=== PATIENT | male | born 1960 | race Caucasian/White ===

== ENCOUNTER 2016-07-17 08:32 | Outpatient (CLI) | payer OTHER | END 2016-07-17 08:33 | disposition home or self-care (01) | DX: M85.89 Other specified disorders of bone density and structure, multiple sites (principal) ==

== ENCOUNTER 2016-09-25 21:20 | Outpatient (CLI) | payer OTHER | END 2016-09-25 21:21 | disposition critical access hospital (66) | DX: R53.1 Weakness (principal); R41.3 Other amnesia; W19.XXXA Unspecified fall, initial encounter; Y92.009 Unspecified place in unspecified non-institutional (private) residence as the place of occurrence of the external cause | CPT/HCPCS: A0425; A0427 ==

== ENCOUNTER 2016-09-25 21:37 | Emergency (ER) | payer OTHER ==
[2016-09-25] MEDS ORDERED: LORazepam 2 MG/ML SYRINGE IVP STA (21:46)
[2016-09-25] MEDS ORDERED: SODIUM CHLORIDE 0.9% 1,000 ML IV ONE (21:46)
[2016-09-25] MEDS ORDERED: LORazepam 2 MG/ML SYRINGE ONE (21:51)
== END 2016-09-26 00:16 | disposition home or self-care (01) ==
DX: G40.909 Epilepsy, unspecified, not intractable, without status epilepticus (principal); S20.212A Contusion of left front wall of thorax, initial encounter; W18.39XA Other fall on same level, initial encounter; F17.200 Nicotine dependence, unspecified, uncomplicated
CPT/HCPCS: 71101; 96374; 99284; 99285; J2060

== ENCOUNTER 2017-03-10 10:57 | Outpatient (CLI) | payer OTHER | END 2017-03-10 10:58 | disposition critical access hospital (66) | LOC: EMS 10:57 | PROVIDERS: ATTEND Surgery | DX: R56.9 Unspecified convulsions (principal) | CPT/HCPCS: A0425; A0429 ==

== ENCOUNTER 2017-03-10 11:19 | Emergency (ER) | payer OTHER ==
--- NOTE | 2017-03-10 12:32 | ED Physician Documentation ---
PD HPI SEIZURE - Stated complaint Stated Complaint: SEIZURE - Chief complaint Chief Complaint: Neuro - History obtained from History obtained from: Patient, Family - History of Present Illness Timing - onset: How many hours ago (1) Witnessed: Witnessed Number of seizures: Lasted minutes (1-2) Description of seizure activity: Generalized Injury during seizure: None Pain level max: 0 Pain level now: 0 Associated symptoms: None History of seizures: Known seizure disorder Contributing factors: Other (states has been taking his medications, pt is also a self admitted alcoholic, doesn't want treatment for this.) Treatment SPECIALTY DEVELOPMENT CONSULTANT: Other (none) Similar symptoms before: Diagnosis (recurrent seizures) Recently seen: Not recently seen Review of Systems Ten Systems: 10 systems reviewed and negative Constitutional: denies: Fever, Chills Ears: denies: Ear pain Nose: denies: Rhinorrhea / runny nose, Congestion Throat: denies: Sore throat Cardiac: denies: Chest pain / pressure Respiratory: denies: Cough GI: denies: Abdominal Pain, Vomiting, Diarrhea : denies: Dysuria Skin: denies: Rash Musculoskeletal: denies: Neck pain, Back pain Neurologic: denies: Headache PD PAST MEDICAL HISTORY - Past Medical History Past Medical History: Yes Neuro: Seizure disorder - Past Surgical History Past Surgical History: Yes - Present Medications Home Medications: Ambulatory Orders Medication Instructions Recorded Confirmed Hydrocodone/Acetaminophen 1 - 2 each PO Q6H PRN #20 tablet 06/19/16 03/10/17 [Hydrocodon-Acetaminophen 5-325] OXcarbazepine [Trileptal] 300 mg PO BID #60 tablet 09/25/16 03/10/17 - Allergies Allergies/Adverse Reactions: Allergies Allergy/AdvReac Type Severity Reaction Status Date / Time Penicillins Allergy Unknown Verified 09/25/16 21:44 - Social History Does the pt smoke?: Yes Smoking Status: Current every day smoker Does the pt drink ETOH?: Yes Does the pt have substance abuse?: No - Immunizations Immunizations are current?: Yes Immunizations: TDAP >10years/unknown - POLST Patient has POLST: No PD ED PE NORMAL - Vitals Vital signs reviewed: Yes - General General: Alert and oriented X 3, No acute distress, Well developed/nourished - HEENT HEENT: Atraumatic, PERRL, EOMI, Moist mucous membranes, Pharynx benign (normal intraoral exam) - Neck Neck: Supple, no meningeal sign, No bony TTP - Cardiac Cardiac: RRR - Respiratory Respiratory: Clear bilaterally - Abdomen Abdomen: Soft, Non tender, Non distended - Back Back: No spinal TTP - Derm Derm: Warm and dry - Extremities Extremities: No deformity, No tenderness to palpate, Normal ROM s pain - Neuro Neuro: Alert and oriented X 3, tire retreader 2-12 intact, No motor deficit, No sensory deficit, Normal speech - Psych Psych: Normal mood, Normal affect Results - Vitals Vitals: Vital Signs - 24 hr 03/10/17 03/10/17 11:26 12:32 Temperature 36.7 C Heart Rate 99 91 Respiratory 18 18 Rate Blood Pressure 164/99 H 165/101 H O2 Saturation 90 L 92 Oxygen O2 Source Nasal cannula PD MEDICAL DECISION MAKING - ED course Complexity details: re-evaluated patient, considered differential, d/w patient, d/w family ED course: Patient is a 56-year-old male who has a known seizure disorder. Presents with a recurrent seizure today. States he is still taking all of his current seizure medications at home. States has 1-2 seizures per year. No injury today. Offered resources to help with his alcoholism, patient declines. Will continue his seizure medications at home. Patient and family counseled regarding signs and symptoms for which I believe and urgent re-evaluation would be necessary. Patient with good understanding of and agreement to plan and is comfortable going home at this time This document was made in part using voice recognition software. While efforts are made to proofread this document, sound alike and grammatical errors may occur. Departure - Departure Disposition: 01 Home, Self Care Clinical Impression: Recurrent seizures Condition: Good Instructions: ED Seizure Recurrent Follow-Up: Luther Trivedi MD [Primary Care Provider] - Within 1 week Comments: Continue your medications at home. Return if you worsen. Your blood pressure was elevated today on check in to the emergency department. This does not mean that you have hypertension, it is a common phenomenon to check into the emergency department and have elevated blood pressure. I recommend that you see your primary care physician within the week to have it rechecked when you're feeling better. Discharge Date/Time: 03/10/17 12:39
[2017-03-10 12:33] VITALS: BP 165/101
== END 2017-03-10 12:39 | disposition home or self-care (01) ==
LOC: EDUNIT# → ED 11:19
DX: G40.909 Epilepsy, unspecified, not intractable, without status epilepticus (principal); R03.0 Elevated blood-pressure reading, without diagnosis of hypertension; F17.200 Nicotine dependence, unspecified, uncomplicated
CPT/HCPCS: 99283

== ENCOUNTER 2017-10-13 13:17 | Outpatient (CLI) | payer OTHER | END 2017-10-13 13:18 | disposition EMS.NT | LOC: EMS 13:17 | PROVIDERS: ATTEND Surgery | DX: R56.9 Unspecified convulsions (principal) ==

== ENCOUNTER 2019-02-18 11:50 | Outpatient (CLI) | payer OTHER | END 2019-02-18 11:51 | disposition EMS.NT | LOC: EMS 11:50 | PROVIDERS: ATTEND Surgery | DX: R56.9 Unspecified convulsions (principal) ==

== ENCOUNTER 2019-08-05 09:49 | Outpatient (CLI) | payer OTHER | END 2019-08-05 09:50 | disposition home or self-care (01) | LOC: LAB 09:49 | PROVIDERS: ATTEND Family Medicine | DX: E87.5 Hyperkalemia (principal) | CPT/HCPCS: 36415; 84132 ==

== ENCOUNTER 2020-09-17 12:27 | Outpatient (CLI) | payer OTHER ==
--- NOTE | 2020-09-17 16:39 | DEXA Report ---
PROCEDURE: Dexa Spine and/or Hip INDICATIONS: LOW BACK PAIN, L5-L5 COMPRESSION FRACUTRE TECHNIQUE: Dual energy x-ray absorptiometry (DXA) was performed on a [employer] System. Regions measur ed are the AP Spine, femoral neck, and if needed forearm. COMPARISON: 07/17/2016. FINDINGS: Lumbar Spine: Bone Mineral Density 1.008 g/cm/cm,T score -1.8, decreased Left Hip: Bone Mineral Density 0.664 g/cm/cm,T score -2.5, decreased Left Femoral Neck: Bone Mineral Density 0.671 g/cm/cm, T score -2.1, (T score greater or equal to -1.0: NORMAL) (T score from -1.1 to -2.4: OSTEOPENIA) (T score less than or equal to -2.5 to: OSTEO POROSIS) Impression: Based on the WHO criteria, the patient is osteoporotic. Compared with the last exam on , bone mineral density in lumbar spine and left hip is significantly decreased. Patients with diagnosis of osteoporosis or osteopenia should have regular bone mineral density assess ment. For those eligible for Medicare, routine testing is allowed once every 2 years. Testing frequ ency can be increased for patients who have rapidly progressing disease or for those who are receivin g medical therapy to restore bone mass. Reviewed by: Altagracia Muhammad MD on 09/17/2020 4:37 PM PST Approved by: Altagracia Muhammad MD on 09/17/2020 4:37 PM PST Station ID: [id number]
== END 2020-09-17 12:28 | disposition home or self-care (01) ==
LOC: DI 12:27
PROVIDERS: ATTEND Family Medicine
DX: M81.0 Age-related osteoporosis without current pathological fracture (principal)

== ENCOUNTER 2021-04-27 10:27 | Outpatient (CLI) | payer OTHER ==
--- NOTE | 2021-04-27 12:17 | MRI Report ---
PROCEDURE: Lumbar Spine W/O INDICATIONS: LOW BACK SPINE TECHNIQUE: Noncontrast sagittal T1 spin echo and T2 fast echo, sagittal STIR, axial T1 and T2 fast spin echo thr ough the lumbar spine. In cases with scoliosis, additional coronal T2 fast spin echo may be performe d. COMPARISON: None. FINDINGS: Image quality: Excellent. Alignment and Curvature: Trace degenerative anterolisthesis of L4 on L5. There is otherwise normal b ton alignment. Bone Marrow: Marrow is of normal overall signal. No acute vertebral body compression fractures. Mil d chronic compressions of L4 and L5. Minimal chronic compressions of T12 and L1. Spinal Cord: Conus medullaris terminates at the L1 level. Visualized cord demonstrates normal signa l and size. Paraspinous Soft Tissues: No paravertebral masses. T12-L1: No canal stenosis or foraminal stenosis. L1-L2: No canal stenosis or foraminal stenosis. L2-L3: No canal stenosis or foraminal stenosis. L3-L4: No canal stenosis or foraminal stenosis. L4-L5: Disc bulge. Facet and ligament hypertrophy. Epidural lipomatosis. Mild canal stenosis. Moder ate right foraminal narrowing with mild flattening deformity on the inferior aspect of the right L4 n erve root. Mild to moderate left foraminal narrowing. L5-S1: No canal stenosis. Mild disc bulge. Bilateral facet hypertrophy. Moderate left foraminal eduardo rowing with mild flattening deformity on the exiting left L5 nerve root. IMPRESSION: 1. Multilevel mild chronic compressions. 2. There is mild canal stenosis at L4-L5. 3. Lower lumbar facet arthropathy. 4. There is moderate right foraminal narrowing at L4-L5 and moderate left foraminal narrowing at L5-S 1. Reviewed by: Juan Cullen MD on 04/27/2021 12:16 PM PDT Approved by: Juan Cullen MD on 04/27/2021 12:16 PM PDT Station ID: [id number]
== END 2021-04-27 10:28 | disposition home or self-care (01) ==
LOC: DI 10:27
PROVIDERS: ATTEND Family Medicine
DX: M47.816 Spondylosis without myelopathy or radiculopathy, lumbar region (principal); M47.817 Spondylosis without myelopathy or radiculopathy, lumbosacral region; M48.061 Spinal stenosis, lumbar region without neurogenic claudication; M48.07 Spinal stenosis, lumbosacral region

== ENCOUNTER 2021-12-12 17:19 | Inpatient (IN) | payer OTHER ==
[2021-12-12] MEDS ORDERED: cefTRIAXone 2 GM in SODIUM CHLORIDE 0.9% MINIBAG 100 ML IV STA (17:40)
[2021-12-12] MEDS ORDERED: metroNIDAZOLE 500 MG/100 ML 500 MG/100 ML BAG IV ONE (17:40)
--- NOTE | 2021-12-12 18:01 | CT Report ---
PROCEDURE: MAXILLOFACIAL WO INDICATIONS: facial infection TECHNIQUE: Noncontrast 1.5 mm thick axial images acquired from the mandible through the frontal sinuses, with co moises and sagittal reformatting. For radiation dose reduction, the following was used: automated ex posure control, adjustment of mA and/or kV according to patient size. COMPARISON: None. FINDINGS: Image quality: Excellent. Bones and teeth: The left mandible is highly abnormal, with apparent bony lysis seen on series 3 karma ges 33 through 73. Several missing teeth can be seen within this region. Orbital yuan are intact. Sinus yuan show no fracture or deformity. Nasal bones and septum are int act. Zygomatic arches are intact. Pterygoid plates are intact. Visualized portions of the skull ba se and auditory canals are intact. Sinuses: Mild to moderate mucosal thickening is seen within the left maxillary sinus and within the r ight maxillary sinus inferiorly. Milder mucosal thickening is seen elsewhere within the paranasal sin uses. The ostiomeatal complexes are narrowed, with bilateral Vero cells. Opacification can be seen of the right-sided Vero cells. There is mild rightward nasal septal deviation. Soft tissues: There is mild left perimandibular soft tissue swelling. Vascular: Visualized vascular structures appear normal in the absence of contrast. Bony vascular fo ramina and canals are intact. Atherosclerotic calcification is seen. IMPRESSION: Given the history, these imaging findings are highly concerning for osteomyelitis of the left mandibl e. However, differential diagnosis includes necrosis of the mandible. Urgent oral surgery/ENT consultation would be recommended. Mild left perimandibular soft tissue swelling is seen. Paranasal sinus disease is noted. Reviewed by: Kd Artis MD on 12/12/2021 4:59 PM AKDT Approved by: Kd Artis MD on 12/12/2021 4:59 PM AKDT Station ID: [id number]
[2021-12-12 18:26] LABS: BASOPHILS # (AUTO) 0.1 10^3/uL (0.0-0.1); BASOPHILS % (AUTO) 0.8 %; EOSINOPHILS # (AUTO) 0.2 10^3/uL (0.0-0.7); EOSINOPHILS % (AUTO) 2.9 %; HCT - HEMATOCRIT 45.1 % (42.0-52.0); HGB - HEMOGLOBIN 15.4 g/dL (14.0-18.0); LYMPHOCYTES # (AUTO) 1.5 10^3/uL (1.5-3.5); LYMPHOCYTES % (AUTO) 20.1 %; MEAN CORPUSCULAR HEMOGLOBIN 33.5 pg (27.0-31.0); MEAN CORPUSCULAR HGB CONC 34.1 g/dL (32.0-36.0); MONOCYTES # (AUTO) 0.5 10^3/uL (0.0-1.0); MONOCYTES % (AUTO) 6.7 %; NEUTROPHILS # (AUTO) 5.2 10^3/uL (1.5-6.6); NEUTROPHILS % (AUTO) 69.1 %; PLT - PLATELET COUNT 263 10^3/uL (130-450); RED CELL DISTRIBUTION WIDTH 14.6 % (12.0-15.0); WHITE BLOOD COUNT 7.5 x10^3/uL (4.8-10.8)
[2021-12-12] MEDS ORDERED: KETOROLAC 15 MG/ML VIAL IVP STA (18:44)
[2021-12-12] MEDS ORDERED: HYDROmorphone 1 MG/ML CARPUJECT IVP STA (18:44)
[2021-12-12 18:46] LABS: BUN - BLOOD UREA NITROGEN 17 mg/dL (6-20); CALCIUM 9.5 mg/dL (8.5-10.3); CARBON DIOXIDE - CO2 26 mmol/L (21-32); CHLORIDE 94 mmol/L (101-111); CREATININE 0.8 mg/dL (0.6-1.2); GFR - MDRD 98 (>89); GLUCOSE 136 mg/dL (70-100); SODIUM 131 mmol/L (135-145)
[2021-12-12 18:47] LABS: CRP - C-REACTIVE PROTEIN < 1.0 mg/dL (0-1.0)
--- NOTE | 2021-12-12 18:48 | ED Physician Documentation ---
History of Present Illness - Stated complaint Stated Complaint: L LOWER JAW PX/INFECTION - Chief complaint Chief Complaint: General - History obtained from History obtained from: Patient - Additonal information Additional information: 61-year-old gentleman had some dental issues starting a couple weeks ago went to his dentist and was put on antibiotics. He had a tooth fall out from the left mandible and the dentist subsequently referred him to Dr. Andrzej Fan, [facility] [place] who saw him today and referred him here because Panorex was suggestive of osteomyelitis of the jaw. He is in quite a bit of pain. Denies fevers or other systemic symptoms. Review of Systems Ten Systems: 10 systems reviewed and negative Eyes: reports: Reviewed and negative Ears: reports: Reviewed and negative Throat: reports: Dental pain / toothache Cardiac: reports: Reviewed and negative PD PAST MEDICAL HISTORY - Past Medical History Past Medical History: No - Past Surgical History Past Surgical History: Yes - Present Medications Home Medications: Ambulatory Orders Medication Instructions Recorded Confirmed OXcarbazepine [Trileptal] 300 mg PO BID #60 tablet 09/25/16 12/12/21 Lisinopril [Zestril] 40 mg PO DAILY 12/12/21 12/12/21 hydroCHLOROthiazide [Hydrodiuril] 25 mg PO DAILY 12/12/21 12/12/21 - Allergies Allergies/Adverse Reactions: Allergies Allergy/AdvReac Type Severity Reaction Status Date / Time Penicillins Allergy Unknown Verified 12/12/21 17:34 - Social History Does the pt smoke?: Yes Smoking Status: Current every day smoker Does the pt drink ETOH?: Yes Does the pt have substance abuse?: No - Immunizations Immunizations are current?: Yes Immunizations: TDAP >10years/unknown - POLST Patient has POLST: No PD ED PE NORMAL - Vitals Vital signs reviewed: Yes - General General: Alert and oriented X 3, No acute distress - HEENT HEENT: PERRL, EOMI, Other (He does have some trismus and significant tenderness on the left side of the jaw. Difficult to examine because of the trismus.) - Neck Neck: No bony TTP, No JVD - Cardiac Cardiac: RRR, No murmur - Respiratory Respiratory: No respiratory distress, Clear bilaterally - Abdomen Abdomen: Normal bowel sounds, Soft, Non tender - Back Back: No CVA TTP, No spinal TTP - Derm Derm: Normal color, Warm and dry - Extremities Extremities: No edema, No calf tenderness / cord - Neuro Neuro: Alert and oriented X 3, No motor deficit, No sensory deficit, Normal speech Results - Vitals Vitals: Vital Signs - 24 hr 12/12/21 17:31 Temperature 36.3 C L Heart Rate 97 Respiratory 16 Rate Blood Pressure 127/85 H O2 Saturation 98 Oxygen O2 Source Room air - Labs Labs: Laboratory Tests 12/12/21 12/12/21 12/12/21 18:17 18:17 18:17 WBC 7.5 RBC 4.60 L Hgb 15.4 Hct 45.1 MCV 98.0 H MCH 33.5 H MCHC 34.1 RDW 14.6 Plt Count 263 MPV 9.0 Neut # (Auto) 5.2 Lymph # (Auto) 1.5 Valencia # (Auto) 0.5 Eos # (Auto) 0.2 Baso # (Auto) 0.1 Absolute Nucleated RBC 0.00 Nucleated RBC % 0.0 ESR 5 Sodium 131 L Potassium 4.0 Chloride 94 L Carbon Dioxide 26 Anion Gap 11.0 BUN 17 Creatinine 0.8 Estimated GFR (MDRD) 98 Glucose 136 H Lactic Acid Calcium 9.5 C-Reactive Protein < 1.0 12/12/21 18:17 WBC RBC Hgb Hct MCV MCH MCHC RDW Plt Count MPV Neut # (Auto) Lymph # (Auto) Valencia # (Auto) Eos # (Auto) Baso # (Auto) Absolute Nucleated RBC Nucleated RBC % ESR Sodium Potassium Chloride Carbon Dioxide Anion Gap BUN Creatinine Estimated GFR (MDRD) Glucose Lactic Acid 1.5 Calcium C-Reactive Protein PD MEDICAL DECISION MAKING - ED course ED course: 61-year-old gentleman presents at the behest of Dr. Fan, [facility] [place] for CT of the mandible and IV antibiotics. CT of the mandible did confirm osteomyelitis of the jaw and I confirmed with Dr. Fan the antibiotic selection of ceftriaxone and Flagyl noting his penicillin allergy which was an unknown reaction from childhood. Dr. Fan recommends admission to medicine for continued IV antibiotics, likely mandibulectomy tomorrow and will need a PICC line for prolonged IV antibiotic therapy and liquid diet for now until n.p.o. for the OR. Spoke with Dr. Meyer after shift change at about 7:45 PM for admission. Departure - Departure Disposition: 66 [facility] DC/Xfer Clinical Impression: Acute osteomyelitis of mandible Condition: Serious
[2021-12-12] MEDS ORDERED: ONDANSETRON 4 MG/2 ML VIAL IVP PRN (20:09)
--- NOTE | 2021-12-12 20:19 | HISTORY & PHYSICAL EXAMINATION ---
Chief Complaint - Chief Complaint Chief Complaint: Left jaw pain, and sent in by Dr Andrzej Fan History of Present Illness - Admitted From Admitted From:: ED - History Obtained From History obtained from: ED provider and the patient - History of Present Illness HPI Comment/Other: This is a 61-year-old white male with a history of hypertension (on lisinopril and HCTZ) and history of seizures (on Trileptal). 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 He has had no seizures since 2019. The patient's significant other, Grace, started to complain of the pt having bad breath in Aug 2021. He became more diligent with his oral care but the smell only got worse. In early November, he went to his dentist who reported that his left lower jaw had a molar that was 1/2 missing (down to its root) and next to it was a loose tooth. He was put on a course of Amoxicillin which he took as prescribed. The foul smell got better but the lose tooth fell out. He had a return visit in mid-November with the dentist who said the area was now exposed down to the jaw bone and an appointment was set up for him to see Dr Andrzej Fan, which was today. He developed a tooth ache approximately 2 weeks ago and 4 days ago he started to get lock jaw and it was painful to open his mouth. He was seen by Dr. Fan today where an x-ray suggested there was jaw osteomyelitis and the pt was sent to the ED to confirm this with a CT scan. It was confirmed and the patient is being admitted to treat L lower mandible osteomyelitis using IV antibiotics and the plan is for the pt to undergo surgical intervention tomorrow (mandibulectomy). The patient will also need a PICC line for a prolonged course of IV antibiotics. He had blood cultures done in ER and first antibiotics administered. Labs showed a normal WBC, L.A., CRP and ESR. His serum sodium is 131. History - Past Medical History Cardiovascular: reports: Hypertension Respiratory: reports: None Neuro: reports: Seizure disorder Endocrine/Autoimmune: reports: None GI: reports: None CHURCH MUSICIAN: reports: None : reports: None HEENT: reports: Other (current dental infectiuon) Psych: reports: None Musculoskeletal: reports: None Derm: reports: None - Past Surgical History HEENT: reports: Other (Has "poor teeth" with some missing) - Family & Social History Family History: Mother: (Father of lung [place]), Father: , Sister: Alive and Well (2 older brothers, 1 younger sister, health unknown. A 27-year-old daughter is healthy, a son in an auto accident.), Brother: Alive and Well Living arrangement: At home Living Situation: With spouse/s.o. 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 He smokes just under 1 pack/day of cigarettes. He drinks between 0 and a sixpack of beer a day, says he has never had alcohol withdrawal. His last beer intake was 2 days ago when he had more than a sixpack, to try to relieve the jaw pain. He tried smoking marijuana once recently, for the jaw pain, it had no effect, thus he uses no marijuana or other drugs. - Substance History Use: Uses substance without health or social issues: Tobacco, Alcohol - POLST Patient has POLST: No Meds/Allgy - Home Medications Home Medications: Ambulatory Orders Medication Instructions Recorded Confirmed Lisinopril [Zestril] 40 mg PO DAILY 12/12/21 12/12/21 OXcarbazepine [Trileptal] 900 mg PO BID 12/12/21 12/12/21 hydroCHLOROthiazide [Hydrodiuril] 25 mg PO DAILY 12/12/21 12/12/21 - Allergies Allergies/Adverse Reactions: Allergies Allergy/AdvReac Type Severity Reaction Status Date / Time Penicillins Allergy Unknown Verified 12/12/21 17:34 Review of Systems - Constitutional Constitutional: reports: Other (L mouth pain, of upper and lower jaw, rate 9/10, worse with opening mouth) - Gastrointestinal Gastrointestinal: reports: Other (He admits to having a poor diet, does not eat healthy food, eats only when he is hungry, not 3 meals every day, sometimes just one.) - Neurological Neurological: reports: Other (No seizures in 3 years, is compliant with his meds.) - All Other Systems All Other Systems: reports: Reviewed and negative Exam - Vital Signs Vital Signs: Vital Signs x48h Temp Pulse Resp BP Pulse Ox 12/12/21 17:31 36.3 C L 97 16 127/85 H 98 - Physical Exam General Appearance: positive: No acute distress, Alert Eyes Bilateral: positive: Normal inspection, EOMI ENT: positive: No signs of dehydration, Other (Most teeth intact anteriorly, L posterior jaw tender.) Neck: positive: Other (Has a long eason and neck not visualized.) Respiratory: positive: No respiratory distress, Breath sounds nml Cardiovascular: positive: Regular rate & rhythm, No murmur Abdomen: positive: Non-tender, Nml bowel sounds, No distention Skin: positive: Warm, Dry Extremities: positive: Non-tender, No pedal edema Neurologic/Psychiatric: positive: Oriented x3 (Non-focal) Conclusion/Plan - Problem List (1) Acute osteomyelitis of mandible Conclusion/Plan: As per presentation that was described in the H&P. Dr. Andrzej Fan will be ordered for consult and will manage the case mostly. We await blood culture results. As recommended by Dr Fan, the patient will be put on iv Flagyl and iv Rocephin, given the penicillin allergy. Will order clear liquid diet but n.p.o. after midnight for mandibulectomy tomorrow. We will also order a PICC line insertion (to be done in OR). Will give IV fluids since he will have restricted oral intake. Will give IV pain meds. (2) Hyponatremia Conclusion/Plan: This is probably hypovolemic hyponatremia given his use of diuretic, and possibly also has had decreased oral intake because of his "lock jaw". Will give iv fluids to include Normal Saline. Will follow BMP daily (3) Seizure disorder Conclusion/Plan: We will continue the patient's Trileptal while he is here (4) HTN (hypertension) Conclusion/Plan: Patient usually takes lisinopril and HCTZ. Currently his blood pressure is normal. Will continue with the lisinopril. Will stop the HCTZ since the patient will need IV hydration because his diet will be very altered (5) Hypomagnesemia Conclusion/Plan: This is likely from chronic HCTZ use Will give magnesium replacement. HCTZ will be on hold while he is here (6) Tobacco use Conclusion/Plan: Will order a Nicotine patch (7) Alcohol consumption binge drinking Conclusion/Plan: He says he does not drink every day, sometimes skips an entire week. He can drink up to a sixpack a day however and just 2 days ago had more than a sixpack of beer, in trying to relieve his jaw pain. Will order a WA protocol. - Lab Results Fish Bones: 12/12/21 18:17 12/12/21 18:17 - Diagnostic Imaging Results Diagnostic Imaging Results: positive: Final report reviewed - Other Other Results/Comments: Attestation: The patient is expected to be discharged or transferred to another facility within 96 hours: Yes.
[2021-12-12] MEDS ORDERED: OXcarbazepine 150 MG TABLET PO SCH (21:00)
[2021-12-12] MEDS: metroNIDAZOLE 500 MG/100 ML 500 MG/100 ML BAG IV SCH (21:11)
[2021-12-12 21:44] LABS: ALBUMIN 4.1 g/dL (3.2-5.5); ALKALINE PHOSPHATASE 99 IU/L (42-121); ALT ALANINE AMINOTRANSFERASE 19 IU/L (10-60); AST ASPARTATE AMINOTRANSFERASE 18 IU/L (10-42); BILIRUBIN,TOTAL 0.6 mg/dL (0.2-1.0); MAGNESIUM 1.5 mg/dL (1.7-2.8); TOTAL PROTEIN 7.5 g/dL (6.7-8.2)
[2021-12-12 21:45] LABS: PT - PROTHROMBIN TIME 10.7 secs (9.9-12.6)
[2021-12-12] MEDS: SODIUM CHLORIDE FLUSH 0.9% 10 ML SYRINGE IVP PRN (21:56)
[2021-12-12] MEDS ORDERED: OXcarbazepine 150 MG TABLET PO ONE (22:00)
[2021-12-12 22:03] LABS: BILIRUBIN,DIRECT < 0.1 mg/dL (0.1-0.5)
[2021-12-12] MEDS: HYDROmorphone 0.5 MG/0.5 ML SYRINGE IVP PRN (22:21)
[2021-12-12] MEDS ORDERED: D5NS W/20 MEQ KCL 1,000 ML IV SCH (23:00)
--- NOTE | 2021-12-12 23:01 | CONSULTATION NOTE ---
Referring Provider Name of Referring Provider:: Monie Blum Consult Date: 12/12/21 Chief Complaint - Chief Complaint Chief Complaint: Mouth pain History of Present Illness - Admitted From Admitted From:: ER - History of Present Illness HPI Comment/Other: 61 yo M w/ 2 month h/o worsening pain and swelling of the L mandible. He now reports complete loss of sensation in the L V3 distribution, with dysesthesia occasionally. Endorses worsening trismus, swelling, halitosis, malocclusion, and left ear pain. Denies globus, dysphagia, dyspnea. Today he presented to my office with a complaint of a lower left molar falling out spontaneously and of worsening pain. An orthopantomogram demonstrated significant lytic process of the L mandible most suggestive of osteomyelitis. His pain was uncontrolled and he reported inability to take adequate PO, and he had worsening swelling of the L submandibular region. He was referred to the ER for imaging and IV antibiotics. From there he was admitted to med/surg and OMFS was consulted for evaluation and management of his osteomyelitis. 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 A 27-year-old daughter is healthy, a son in an auto accident.), Brother: Alive and Well Living arrangement: At home Living Situation: With spouse/s.o. 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 He smokes just under 1 pack/day of cigarettes. He drinks between 0 and a sixpack of beer a day, says he has never had alcohol withdrawal. His last beer intake was 2 days ago when he had more than a sixpack, to try to relieve the jaw pain. He tried smoking marijuana once recently, for the jaw pain, it had no effect, thus he uses no marijuana or other drugs. - Substance History Use: Uses substance without health or social issues: Tobacco, Alcohol - POLST Patient has POLST: No Meds/Allgy - Home Medications Home Medications: Ambulatory Orders Medication Instructions Recorded Confirmed Lisinopril [Zestril] 40 mg PO DAILY 12/12/21 12/12/21 OXcarbazepine [Trileptal] 900 mg PO BID 12/12/21 12/12/21 hydroCHLOROthiazide [Hydrodiuril] 25 mg PO DAILY 12/12/21 12/12/21 - Allergies Allergies/Adverse Reactions: Allergies Allergy/AdvReac Type Severity Reaction Status Date / Time Penicillins Allergy Unknown Verified 12/12/21 17:34 Review of Systems - Other Findings Other Findings: A 14 point ROS was completed and negative except as noted above in HPI. Exam - Vital Signs Vital Signs: Vital Signs x48h Temp Pulse Pulse Resp BP BP Pulse Ox 12/12/21 21:00 36.7 C 83 18 136/94 H 94 12/12/21 20:23 36.7 C 79 18 131/90 H 94 12/12/21 17:31 36.3 C L 97 16 127/85 H 98 - Physical Exam General Appearance: positive: Alert Eyes Bilateral: positive: PERRL, EOMI ENT: positive: Other (SOM 20mm. L FOM s, nt, ne. Uvula midline. Exposed bone over the L mandibular ridge. Purulent drainage from the open wound into his mouth. Occlusion stable. Dentition terminal with severe generalized horizontal bone loss, especially on the mandible.) Neck: positive: Other (Thick eason. Skin over the L mandible is erythematous and tender, with moderate swelling and induration of the L submandibular region.) Respiratory: positive: No respiratory distress, Breath sounds nml Cardiovascular: positive: Regular rate & rhythm Peripheral Pulses: positive: 2+ Abdomen: positive: Non-tender, No distention Skin: positive: Other (Erythema of the L neck, otherwise normal) Extremities: positive: Full ROM, Nml appearance Neurologic/Psychiatric: positive: Oriented x3, CN's nml (2-12) (With the exception of left V3 anesthesia) Conclusion and Plan - Lab Results Laboratory Results 12/12/21 18:30: SARS-CoV-2 (PCR) NOT DETECTED 12/12/21 18:17: Magnesium 1.5 L, Total Bilirubin 0.6, Direct Bilirubin < 0.1 L, AST 18, ALT 19, Alkaline Phosphatase 99, Total Protein 7.5, Albumin 4.1, Globulin 3.4 12/12/21 18:17: PT 10.7, INR 1.0 12/12/21 18:17: Lactic Acid 1.5 12/12/21 18:17: Sodium 131 L, Potassium 4.0, Chloride 94 L, Carbon Dioxide 26, Anion Gap 11.0, BUN 17, Creatinine 0.8, Estimated GFR (MDRD) 98, Glucose 136 H, Calcium 9.5, C-Reactive Protein < 1.0 12/12/21 18:17: ESR 5 12/12/21 18:17: WBC 7.5, RBC 4.60 L, Hgb 15.4, Hct 45.1, MCV 98.0 H, MCH 33.5 H, MCHC 34.1, RDW 14.6, Plt Count 263, MPV 9.0, Neut # (Auto) 5.2, Lymph # (Auto) 1.5, [place] # (Auto) 0.5, Eos # (Auto) 0.2, Baso # (Auto) 0.1, Absolute Nucleated RBC 0.00, Nucleated RBC % 0.0 - Diagnostic Imaging Results Diagnostic Imaging Results Comments: There is a lytic process of the L body of the mandible extending from the anterior ascending ramus to tooth #21. The process extends to the inferior border of the mandible and the radiographic appearance is most consistent with osteomyelitis, although malignancy cannot be ruled out. - Diagnosis Diagnosis: Osteomyelitis of the left mandible - Consultation Note Consultation Note: 61 yo M w/ severe full thickness osteomyelitis of the L mandible, likely with the following sequela: 1. L submandibular abscess 2. pathologic fracture of the L mandible Differential diagnosis includes neoplastic process of the L mandible. - Plan Plan: We anticipate resection of the left mandible with placement of reconstruction plate. This will be accomplished trans-cervically. I&D of L neck abscess will be performed as needed, as well as removal of teeth as needed. Bone graft reconstruction of the mandible will not be performed because of the presence of the infection and the large intraoral wound which would predispose to oral contamination of the bone graft. - senior living he will need PICC - My office will arrange senior living antibiotic management with infectious disease - We will verify which antibiotic he has been taking over the past month. If it is amoxicillin then he may have more antibiotic options available. - Will take cultures from the wound - Will biopsy the specimen because of the possibility of neoplasm - Agree w/ current IV abx regimen - Start peridex mouthrinse BID - sleep w/ HOB elevated. - Timing of surgery pending Appreciate IM assistance. Please call with any questions. Andrzej Fan DDS [phone]
[2021-12-12] MEDS: NICOTINE 14 MG PATCH TOP SCH (23:37)
[2021-12-13] MEDS: SODIUM CHLORIDE FLUSH 0.9% 10 ML SYRINGE IVP SCH ×2 (00:21→07:51)
--- NOTE | 2021-12-13 00:43 | XRAY Report ---
PROCEDURE: Chest 1 View X-Ray INDICATIONS: Pre-op eval, smoker TECHNIQUE: One view of the chest was acquired. COMPARISON: Chest CT 06/19/2017. FINDINGS: Surgical changes and devices: None. Lungs and pleura: No pleural effusions or pneumothorax. There are medial linear opacities in the tanvir g bases likely represent atelectasis. Mediastinum: Mediastinal contours appear normal. Heart size is normal. Bones and chest wall: No suspicious bony lesions. Overlying soft tissues appear unremarkable. IMPRESSION: 1. Probable mild atelectasis medially within the lung bases. Reviewed by: Nirav Conner MD on 12/13/2021 12:41 AM PDT Approved by: Nriav Conner MD on 12/13/2021 12:41 AM PDT Station ID: [id number]
[2021-12-13] MEDS: HYDROmorphone 0.5 MG/0.5 ML SYRINGE IVP PRN ×3 (04:15→12:11)
[2021-12-13] MEDS: metroNIDAZOLE 500 MG/100 ML 500 MG/100 ML BAG IV SCH ×2 (05:13→12:13)
[2021-12-13 05:22] LABS: BASOPHILS # (AUTO) 0.1 10^3/uL (0.0-0.1); BASOPHILS % (AUTO) 1.1 %; EOSINOPHILS # (AUTO) 0.3 10^3/uL (0.0-0.7); EOSINOPHILS % (AUTO) 4.9 %; HCT - HEMATOCRIT 41.4 % (42.0-52.0); LYMPHOCYTES # (AUTO) 1.9 10^3/uL (1.5-3.5); LYMPHOCYTES % (AUTO) 31.1 %; MEAN CORPUSCULAR HEMOGLOBIN 33.3 pg (27.0-31.0); MEAN CORPUSCULAR HGB CONC 33.8 g/dL (32.0-36.0); MEAN CORPUSCULAR VOLUME 98.3 fL (80.0-94.0); MEAN PLATELET VOLUME 9.5 fL (7.4-11.4); MONOCYTES # (AUTO) 0.5 10^3/uL (0.0-1.0); MONOCYTES % (AUTO) 7.3 %; NEUTROPHILS # (AUTO) 3.4 10^3/uL (1.5-6.6); NEUTROPHILS % (AUTO) 55.3 %; PLT - PLATELET COUNT 226 10^3/uL (130-450); RED BLOOD COUNT 4.21 10^6/uL (4.70-6.10); RED CELL DISTRIBUTION WIDTH 14.7 % (12.0-15.0); WHITE BLOOD COUNT 6.1 x10^3/uL (4.8-10.8)
[2021-12-13 05:32] LABS: CALCIUM 9.1 mg/dL (8.5-10.3); CREATININE 0.7 mg/dL (0.6-1.2); POTASSIUM 3.7 mmol/L (3.5-5.0)
--- NOTE | 2021-12-13 07:31 | PROVIDER PROGRESS NOTE ---
Subjective - Prog Note Date Prog Note Date: 12/13/21 - Subjective Subjective: He feels well overall. Has little pain over the left jaw area. This began last night. Denies any chest pain or difficulty breathing. Current Medications - Current Medications Current Medications: Active Medications Acetaminophen (Acetaminophen 325 Mg Tablet) 650 mg PO Q4HR PRN PRN Reason: Pain 1 to 4, or Fever Chlorhexidine Gluconate (Chlorhexidine Gluconate 15 Ml Udc) 15 ml PO BID [facility] Hydromorphone HCl (Hydromorphone 0.5 Mg/0.5 Ml Syringe) 0.5 mg IVP Q2H PRN PRN Reason: Pain 8 to 10 Last Admin: 12/13/21 07:49 Dose: 0.5 mg Potassium Chloride/Dextrose/Sod Cl (D5ns W/20 Meq Kcl) 1,000 mls @ 100 mls/hr IV .Q10H [facility] Last Admin: 12/12/21 21:56 Dose: 100 mls/hr Metronidazole (Flagyl 500 Mg/100 Ml) 500 mg in 100 mls @ 100 mls/hr IV Q8H [facility] Last Infusion: 12/13/21 06:35 Dose: Infused Ceftriaxone Sodium 2 gm/ (Sodium Chloride) 100 mls @ 200 mls/hr IV DAILY [facility] Lisinopril (Lisinopril 20 Mg Tablet) 40 mg PO DAILY [facility] Nicotine (Nicotine 14 Mg Patch) 1 patch TOP DAILY [facility] Last Admin: 12/12/21 23:37 Dose: 1 patch Ondansetron HCl (Ondansetron 4 Mg/2 Ml Vial) 4 mg IVP Q6HR PRN PRN Reason: Nausea / Vomiting Oxcarbazepine (Oxcarbazepine 150 Mg Tablet) 900 mg PO BID [facility] Sodium Chloride (Sodium Chloride Flush 0.9% 10 Ml Syringe) 10 ml IVP PRN PRN PRN Reason: NEEDED PER PROVIDER ORDERS Last Admin: 12/12/21 21:56 Dose: 10 ml Sodium Chloride (Sodium Chloride Flush 0.9% 10 Ml Syringe) 10 ml IVP 0100,0900,1700 [facility] Last Admin: 12/13/21 07:51 Dose: 10 ml Lisinopril [Zestril] 40 mg PO DAILY 12/12/21 OXcarbazepine [Trileptal] 900 mg PO BID 12/12/21 hydroCHLOROthiazide [Hydrodiuril] 25 mg PO DAILY 12/12/21 Objective - Vital Signs/Intake & Output Reviewed Vital Signs: Yes Vital Signs: Vital Signs x48h Temp Pulse Resp BP Pulse Ox 12/13/21 04:21 36.4 C L 89 17 150/96 H 92 12/13/21 00:17 36.6 C 79 16 118/78 91 L Intake & Output: Intake & Output 12/10/21 12/11/21 12/12/21 12/13/21 23:59 23:59 23:59 23:59 Intake Total 200 100 Balance 200 100 - Objective General Appearance: positive: No acute distress, Alert Eyes Bilateral: positive: Normal inspection, Conjunctivae nml ENT: positive: Other (Poor dentition.) Neck: positive: Lymphadenopathy (L), Other (Difficult to assess due to his eason but does appear to be left submandibular lymphadenopathy present) Respiratory: positive: No respiratory distress. negative: Wheezes, Rales Cardiovascular: positive: Regular rate & rhythm, No murmur. negative: Tachycardia Abdomen: positive: Non-tender, No distention. negative: Tenderness Skin: positive: Warm, Dry Extremities: positive: No pedal edema Neurologic/Psychiatric: positive: Motor nml. negative: Disoriented to person, Disoriented to place - Lab Results Fish Bones: 12/13/21 04:20 12/13/21 04:20 Other Labs: Lab Results x24hrs 12/13/21 12/13/21 12/12/21 Range/Units 04:20 04:20 18:30 WBC 6.1 (4.8-10.8) x10^3/uL RBC 4.21 L (4.70-6.10) 10^6/uL Hgb 14.0 (14.0-18.0) g/dL Hct 41.4 L (42.0-52.0) % MCV 98.3 H (80.0-94.0) fL MCH 33.3 H (27.0-31.0) pg MCHC 33.8 (32.0-36.0) g/dL RDW 14.7 (12.0-15.0) % Plt Count 226 (130-450) 10^3/uL MPV 9.5 (7.4-11.4) fL Neut # (Auto) 3.4 (1.5-6.6) 10^3/uL Lymph # (Auto) 1.9 (1.5-3.5) 10^3/uL [place] # (Auto) 0.5 (0.0-1.0) 10^3/uL Eos # (Auto) 0.3 (0.0-0.7) 10^3/uL Baso # (Auto) 0.1 (0.0-0.1) 10^3/uL Absolute Nucleated RBC 0.00 x10^3/uL Nucleated RBC % 0.0 /100WBC ESR (0-20) mm/Hr PT (9.9-12.6) secs INR (0.8-1.2) Sodium 131 L (135-145) mmol/L Potassium 3.7 (3.5-5.0) mmol/L Chloride 97 L (101-111) mmol/L Carbon Dioxide 25 (21-32) mmol/L Anion Gap 9.0 (6-13) BUN 18 (6-20) mg/dL Creatinine 0.7 (0.6-1.2) mg/dL Estimated GFR (MDRD) 115 (>89) Glucose 93 (70-100) mg/dL Lactic Acid (0.5-2.2) mmol/L Calcium 9.1 (8.5-10.3) mg/dL Magnesium (1.7-2.8) mg/dL Total Bilirubin (0.2-1.0) mg/dL Direct Bilirubin (0.1-0.5) mg/dL AST (10-42) IU/L ALT (10-60) IU/L Alkaline Phosphatase (42-121) IU/L C-Reactive Protein (0-1.0) mg/dL Total Protein (6.7-8.2) g/dL Albumin (3.2-5.5) g/dL Globulin (2.1-4.2) g/dL Prealbumin (18-45) mg/dL SARS-CoV-2 (PCR) NOT DETECTED 12/12/21 12/12/21 12/12/21 Range/Units 18:17 18:17 18:17 WBC (4.8-10.8) x10^3/uL RBC (4.70-6.10) 10^6/uL Hgb (14.0-18.0) g/dL Hct (42.0-52.0) % MCV (80.0-94.0) fL MCH (27.0-31.0) pg MCHC (32.0-36.0) g/dL RDW (12.0-15.0) % Plt Count (130-450) 10^3/uL MPV (7.4-11.4) fL Neut # (Auto) (1.5-6.6) 10^3/uL Lymph # (Auto) (1.5-3.5) 10^3/uL [place] # (Auto) (0.0-1.0) 10^3/uL Eos # (Auto) (0.0-0.7) 10^3/uL Baso # (Auto) (0.0-0.1) 10^3/uL Absolute Nucleated RBC x10^3/uL Nucleated RBC % /100WBC ESR (0-20) mm/Hr PT 10.7 (9.9-12.6) secs INR 1.0 (0.8-1.2) Sodium (135-145) mmol/L Potassium (3.5-5.0) mmol/L Chloride (101-111) mmol/L Carbon Dioxide (21-32) mmol/L Anion Gap (6-13) BUN (6-20) mg/dL Creatinine (0.6-1.2) mg/dL Estimated GFR (MDRD) (>89) Glucose (70-100) mg/dL Lactic Acid (0.5-2.2) mmol/L Calcium (8.5-10.3) mg/dL Magnesium 1.5 L (1.7-2.8) mg/dL Total Bilirubin 0.6 (0.2-1.0) mg/dL Direct Bilirubin < 0.1 L (0.1-0.5) mg/dL AST 18 (10-42) IU/L ALT 19 (10-60) IU/L Alkaline Phosphatase 99 (42-121) IU/L C-Reactive Protein (0-1.0) mg/dL Total Protein 7.5 (6.7-8.2) g/dL Albumin 4.1 (3.2-5.5) g/dL Globulin 3.4 (2.1-4.2) g/dL Prealbumin 26 (18-45) mg/dL SARS-CoV-2 (PCR) 12/12/21 12/12/21 12/12/21 Range/Units 18:17 18:17 18:17 WBC (4.8-10.8) x10^3/uL RBC (4.70-6.10) 10^6/uL Hgb (14.0-18.0) g/dL Hct (42.0-52.0) % MCV (80.0-94.0) fL MCH (27.0-31.0) pg MCHC (32.0-36.0) g/dL RDW (12.0-15.0) % Plt Count (130-450) 10^3/uL MPV (7.4-11.4) fL Neut # (Auto) (1.5-6.6) 10^3/uL Lymph # (Auto) (1.5-3.5) 10^3/uL [place] # (Auto) (0.0-1.0) 10^3/uL Eos # (Auto) (0.0-0.7) 10^3/uL Baso # (Auto) (0.0-0.1) 10^3/uL Absolute Nucleated RBC x10^3/uL Nucleated RBC % /100WBC ESR 5 (0-20) mm/Hr PT (9.9-12.6) secs INR (0.8-1.2) Sodium 131 L (135-145) mmol/L Potassium 4.0 (3.5-5.0) mmol/L Chloride 94 L (101-111) mmol/L Carbon Dioxide 26 (21-32) mmol/L Anion Gap 11.0 (6-13) BUN 17 (6-20) mg/dL Creatinine 0.8 (0.6-1.2) mg/dL Estimated GFR (MDRD) 98 (>89) Glucose 136 H (70-100) mg/dL Lactic Acid 1.5 (0.5-2.2) mmol/L Calcium 9.5 (8.5-10.3) mg/dL Magnesium (1.7-2.8) mg/dL Total Bilirubin (0.2-1.0) mg/dL Direct Bilirubin (0.1-0.5) mg/dL AST (10-42) IU/L ALT (10-60) IU/L Alkaline Phosphatase (42-121) IU/L C-Reactive Protein < 1.0 (0-1.0) mg/dL Total Protein (6.7-8.2) g/dL Albumin (3.2-5.5) g/dL Globulin (2.1-4.2) g/dL Prealbumin (18-45) mg/dL SARS-CoV-2 (PCR) 12/12/21 Range/Units 18:17 WBC 7.5 (4.8-10.8) x10^3/uL RBC 4.60 L (4.70-6.10) 10^6/uL Hgb 15.4 (14.0-18.0) g/dL Hct 45.1 (42.0-52.0) % MCV 98.0 H (80.0-94.0) fL MCH 33.5 H (27.0-31.0) pg MCHC 34.1 (32.0-36.0) g/dL RDW 14.6 (12.0-15.0) % Plt Count 263 (130-450) 10^3/uL MPV 9.0 (7.4-11.4) fL Neut # (Auto) 5.2 (1.5-6.6) 10^3/uL Lymph # (Auto) 1.5 (1.5-3.5) 10^3/uL [place] # (Auto) 0.5 (0.0-1.0) 10^3/uL Eos # (Auto) 0.2 (0.0-0.7) 10^3/uL Baso # (Auto) 0.1 (0.0-0.1) 10^3/uL Absolute Nucleated RBC 0.00 x10^3/uL Nucleated RBC % 0.0 /100WBC ESR (0-20) mm/Hr PT (9.9-12.6) secs INR (0.8-1.2) Sodium (135-145) mmol/L Potassium (3.5-5.0) mmol/L Chloride (101-111) mmol/L Carbon Dioxide (21-32) mmol/L Anion Gap (6-13) BUN (6-20) mg/dL Creatinine (0.6-1.2) mg/dL Estimated GFR (MDRD) (>89) Glucose (70-100) mg/dL Lactic Acid (0.5-2.2) mmol/L Calcium (8.5-10.3) mg/dL Magnesium (1.7-2.8) mg/dL Total Bilirubin (0.2-1.0) mg/dL Direct Bilirubin (0.1-0.5) mg/dL AST (10-42) IU/L ALT (10-60) IU/L Alkaline Phosphatase (42-121) IU/L C-Reactive Protein (0-1.0) mg/dL Total Protein (6.7-8.2) g/dL Albumin (3.2-5.5) g/dL Globulin (2.1-4.2) g/dL Prealbumin (18-45) mg/dL SARS-CoV-2 (PCR) ABX Reporting Has patient been on IV antibiotics over the past 48 hours?: Yes Assessment/Plan - Problem List (1) Acute osteomyelitis of mandible Impression: This was evident on CT. He is on IV Flagyl and ceftriaxone as recommended by oral surgery given penicillin allergy. Plan will be to go to the OR today for surgical intervention. The plan is for I&D of left neck access as well as resection of left mandible with placement of reconstruction plate. We will look to place a PICC line today while he is in the OR. Oral surgery discussed with infectious disease regarding long-term antibiotics. Continue pain control with morphine and oxycodone as needed. He will be n.p.o. at 9 AM for surgical intervention at 4 PM. (2) Hyponatremia Impression: This is likely secondary to hydrochlorothiazide. We will hold HCTZ and hydrate him with normal saline. (3) Seizure disorder Impression: Stable. Continue Trileptal.
[2021-12-13] MEDS: SODIUM CHLORIDE 0.9% 1,000 ML IV SCH (08:29)
[2021-12-13] MEDS: lisinopriL 20 MG TABLET PO SCH (08:31)
[2021-12-13] MEDS: cefTRIAXone 2 GM in SODIUM CHLORIDE 0.9% MINIBAG 100 ML IV SCH (08:34)
[2021-12-13] MEDS: NICOTINE 14 MG PATCH TOP SCH (08:35)
[2021-12-13] MEDS: CHLORHEXIDINE GLUCONATE 15 ML UDC PO SCH (08:39)
[2021-12-13] MEDS ORDERED: NON FORMULARY MED (Lisinopril [Zestril] 40 MG Tablet) PO SCH (09:00)
[2021-12-13] MEDS: OXcarbazepine 150 MG TABLET PO SCH (10:07)
[2021-12-13] MEDS ORDERED: LACTATED RINGERS 1,000 ML ONE (15:30)
[2021-12-13] MEDS ORDERED: HYDROmorphone 0.5 MG/0.5 ML SYRINGE ONE ×3 (17:15→22:27)
[2021-12-13] MEDS ORDERED: OXcarbazepine 150 MG TABLET PO ONE ×2 (19:30→20:47)
[2021-12-13] MEDS ORDERED: CHLORHEXIDINE GLUCONATE 15 ML UDC PO ONE (19:30)
[2021-12-13] MEDS ORDERED: metroNIDAZOLE 500 MG/100 ML 500 MG/100 ML BAG ONE (19:31)
[2021-12-13] MEDS ORDERED: SODIUM CHLORIDE 0.9% 1,000 ML IV ONE (19:31)
[2021-12-14] MEDS ORDERED: metroNIDAZOLE 500 MG/100 ML 500 MG/100 ML BAG ONE ×3 (04:13→22:28)
[2021-12-14] MEDS ORDERED: PROPOFOL 200 MG/20 ML VIAL IVP ONE (07:30)
[2021-12-14] MEDS ORDERED: LIDOCAINE-MPF 2% 5 ML VIAL ONE (07:30)
[2021-12-14] MEDS ORDERED: DEXAMETHASONE 4 MG/ML VIAL ONE ×2 (07:31→09:04)
[2021-12-14] MEDS ORDERED: ONDANSETRON 4 MG/2 ML VIAL ONE (07:31)
[2021-12-14] MEDS ORDERED: ROCURONIUM 50 MG/5 ML VIAL ONE (07:31)
[2021-12-14] MEDS ORDERED: BUPIVACAINE 0.25% PF 10 ML VIAL ONE (07:34)
[2021-12-14] MEDS ORDERED: BACITRACIN ZINC OINT 1 PACKET TOP ONE ×2 (07:34→14:11)
[2021-12-14] MEDS ORDERED: LIDOCAINE 2%-EPI 1:100000 20 ML MDV ONE (07:34)
[2021-12-14] MEDS ORDERED: CHLORHEXIDINE GLUCONATE 15 ML UDC PO ONE ×3 (07:34→22:30)
[2021-12-14] MEDS ORDERED: EPINEPHrine 1 MG/ML AMP ONE (07:34)
[2021-12-14] MEDS ORDERED: HYDROmorphone 1 MG/ML CARPUJECT ONE ×3 (07:35→23:43)
[2021-12-14] MEDS ORDERED: MIDAZOLAM 2 MG/2 ML VIAL ONE (07:36)
[2021-12-14] MEDS ORDERED: fentaNYL 100 MCG/2 ML VIAL ONE ×2 (07:36→12:05)
[2021-12-14] MEDS ORDERED: OXYMETAZOLINE HCL 100 SPRAYS BOTTLE ONE (07:48)
[2021-12-14] MEDS ORDERED: LIDOCAINE 2% URO-JET 5 ML SYRINGE UR ONE (07:48)
[2021-12-14] MEDS ORDERED: HYDROmorphone 0.5 MG/0.5 ML SYRINGE ONE ×6 (07:54→23:44)
[2021-12-14] MEDS ORDERED: MINERAL OIL/PETROLAT OPHTH OINT ONE (07:59)
[2021-12-14] MEDS ORDERED: cefTRIAXone 2 GM VIAL ONE (08:11)
[2021-12-14] MEDS ORDERED: SODIUM CHLORIDE 0.9% 100ML 100 ML IV ONE (08:12)
[2021-12-14] MEDS ORDERED: SUCCINYLCHOLINE 200 MG/10 ML VIAL ONE (08:48)
[2021-12-14] MEDS ORDERED: PHENYLEPHRINE 10 MG/ML VIAL ONE (09:27)
[2021-12-14] MEDS ORDERED: ceFAZolin 1 GM VIAL IR ONE (09:30)
[2021-12-14] MEDS ORDERED: LIDOCAINE 2%-EPI 1:100000 20 ML MDV SUBQ ONE (09:30)
[2021-12-14] MEDS ORDERED: BACITRACIN ZINC OINT 14 GM TOP ONE (09:30)
[2021-12-14] MEDS ORDERED: ceFAZolin 1 GM VIAL ONE (12:39)
[2021-12-14] MEDS ORDERED: KETOROLAC 30 MG/ML VIAL ONE (13:01)
[2021-12-14] MEDS ORDERED: METOPROLOL 5 MG/5 ML VIAL IVP ONE (14:05)
[2021-12-14] MEDS ORDERED: ACETAMINOPHEN 1,000 MG/100 ML 100 ML IV ONE (15:57)
--- NOTE | 2021-12-14 16:16 | XRAY Report ---
PROCEDURE: Chest for Line Placement INDICATIONS: NEW PICC PLACEMENT TECHNIQUE: One view of the chest was acquired. COMPARISON: 12/12/2021 at 1105 hours FINDINGS: Surgical changes and devices: PICC line tip projects over the mid SVC via right-sided approach. Lungs and pleura: No pleural effusions or pneumothorax. Increased interstitial prominence concerning for fluid overload or CHF has developed in the interval since prior exam. Mediastinum: Mediastinal contours appear normal. Heart size is normal. Bones and chest wall: No suspicious bony lesions. Overlying soft tissues appear unremarkable. IMPRESSION: Tip left PICC line projects over the mid SVC. Reviewed by: Perla Luis MD, PhD on 12/14/2021 4:14 PM PDT Approved by: Perla Luis MD, PhD on 12/14/2021 4:14 PM PDT Station ID: [id number]
[2021-12-14] MEDS: SODIUM CHLORIDE 0.9% 1,000 ML IV SCH (18:25)
[2021-12-14] MEDS: SODIUM CHLORIDE FLUSH 0.9% 10 ML SYRINGE IVP SCH ×4 (18:25→23:35)
[2021-12-14] MEDS: cefTRIAXone 2 GM in SODIUM CHLORIDE 0.9% MINIBAG 100 ML IV SCH (18:26)
[2021-12-14] MEDS: metroNIDAZOLE 500 MG/100 ML 500 MG/100 ML BAG IV SCH ×4 (18:26→22:21)
[2021-12-14] MEDS: CHLORHEXIDINE GLUCONATE 15 ML UDC PO SCH ×3 (18:26→22:21)
[2021-12-14] MEDS: OXcarbazepine 150 MG TABLET PO SCH ×3 (18:26→22:22)
[2021-12-14] MEDS: lisinopriL 20 MG TABLET PO SCH (18:28)
[2021-12-14] MEDS: NICOTINE 14 MG PATCH TOP SCH (18:28)
[2021-12-14] MEDS: SODIUM CHLORIDE FLUSH 0.9% 10 ML SYRINGE IVP PRN (20:56)
[2021-12-14] MEDS: HYDROmorphone 0.5 MG/0.5 ML SYRINGE IVP PRN ×2 (20:56→23:34)
[2021-12-14] MEDS ORDERED: SODIUM CHLORIDE FLUSH 0.9% 10 ML SYRINGE IVP ONE (21:02)
[2021-12-14 21:19] LABS: CALCIUM 8.9 mg/dL (8.5-10.3); CREATININE 0.5 mg/dL (0.6-1.2); POTASSIUM 3.9 mmol/L (3.5-5.0)
[2021-12-14 21:22] LABS: BASOPHILS # (AUTO) 0.1 10^3/uL (0.0-0.1); BASOPHILS % (AUTO) 1.3 %; EOSINOPHILS # (AUTO) 0.3 10^3/uL (0.0-0.7); EOSINOPHILS % (AUTO) 5.8 %; HCT - HEMATOCRIT 39.5 % (42.0-52.0); HGB - HEMOGLOBIN 13.2 g/dL (14.0-18.0); LYMPHOCYTES # (AUTO) 1.8 10^3/uL (1.5-3.5); LYMPHOCYTES % (AUTO) 32.3 %; MEAN CORPUSCULAR HEMOGLOBIN 33.2 pg (27.0-31.0); MEAN CORPUSCULAR HGB CONC 33.4 g/dL (32.0-36.0); MEAN CORPUSCULAR VOLUME 99.2 fL (80.0-94.0); MEAN PLATELET VOLUME 8.9 fL (7.4-11.4); MONOCYTES # (AUTO) 0.5 10^3/uL (0.0-1.0); MONOCYTES % (AUTO) 8.3 %; NEUTROPHILS # (AUTO) 2.9 10^3/uL (1.5-6.6); NEUTROPHILS % (AUTO) 51.6 %; PLT - PLATELET COUNT 194 10^3/uL (130-450); RED BLOOD COUNT 3.98 10^6/uL (4.70-6.10); RED CELL DISTRIBUTION WIDTH 14.4 % (12.0-15.0); WHITE BLOOD COUNT 5.5 x10^3/uL (4.8-10.8)
[2021-12-14 21:33] LABS: MAGNESIUM 1.4 mg/dL (1.7-2.8)
[2021-12-14] MEDS ORDERED: OXcarbazepine 150 MG TABLET PO ONE (22:29)
--- NOTE | 2021-12-15 00:09 | ANESTHESIA POST OP EVALUATION ---
Anesthesia Post Eval - Post Anesthesia Eval Vitals: Last Vital Signs Temp 36.3 C L 12/13/21 16:28 Pulse 85 12/14/21 23:59 Resp 18 12/14/21 23:59 BP 145/91 H 12/14/21 23:59 Pulse Ox 97 12/14/21 23:59 CV Function Including HR & BP: Stable Pain Control: Satisfactory Nausea & Vomiting: Negative Mental Status: Baseline Respiratory Status: Airway Patent Hydration Status: Satisfactory Anesthesia Complications: None
[2021-12-15] MEDS: HYDROmorphone 0.5 MG/0.5 ML SYRINGE IVP PRN ×11 (01:20→21:41)
[2021-12-15] MEDS ORDERED: HYDROmorphone 0.5 MG/0.5 ML SYRINGE ONE ×9 (01:29→14:38)
[2021-12-15] MEDS: ACETAMINOPHEN 325 MG TABLET PO PRN ×6 (01:30→21:40)
[2021-12-15] MEDS ORDERED: ACETAMINOPHEN 325 MG TABLET PO ONE ×5 (01:38→17:36)
[2021-12-15] MEDS: metroNIDAZOLE 500 MG/100 ML 500 MG/100 ML BAG IV SCH ×2 (05:04→13:12)
[2021-12-15] MEDS ORDERED: metroNIDAZOLE 500 MG/100 ML 500 MG/100 ML BAG ONE ×2 (05:10→13:07)
[2021-12-15 05:35] LABS: BASOPHILS # (AUTO) 0.1 10^3/uL (0.0-0.1); BASOPHILS % (AUTO) 0.6 %; EOSINOPHILS # (AUTO) 0.2 10^3/uL (0.0-0.7); EOSINOPHILS % (AUTO) 2.1 %; HCT - HEMATOCRIT 36.9 % (42.0-52.0); HGB - HEMOGLOBIN 12.4 g/dL (14.0-18.0); LYMPHOCYTES # (AUTO) 1.5 10^3/uL (1.5-3.5); MEAN CORPUSCULAR HEMOGLOBIN 33.4 pg (27.0-31.0); MEAN CORPUSCULAR HGB CONC 33.6 g/dL (32.0-36.0); MEAN CORPUSCULAR VOLUME 99.5 fL (80.0-94.0); MEAN PLATELET VOLUME 9.3 fL (7.4-11.4); MONOCYTES # (AUTO) 0.6 10^3/uL (0.0-1.0); MONOCYTES % (AUTO) 7.2 %; NEUTROPHILS # (AUTO) 5.9 10^3/uL (1.5-6.6); NEUTROPHILS % (AUTO) 71.7 %; PLT - PLATELET COUNT 183 10^3/uL (130-450); RED BLOOD COUNT 3.71 10^6/uL (4.70-6.10); RED CELL DISTRIBUTION WIDTH 14.4 % (12.0-15.0); WHITE BLOOD COUNT 8.2 x10^3/uL (4.8-10.8)
[2021-12-15 05:47] LABS: CALCIUM 8.8 mg/dL (8.5-10.3); CREATININE 0.6 mg/dL (0.6-1.2); POTASSIUM 3.8 mmol/L (3.5-5.0)
--- NOTE | 2021-12-15 07:56 | PROVIDER PROGRESS NOTE ---
Subjective - Prog Note Date Prog Note Date: 12/15/21 - Subjective Subjective: His biggest complaint is the pain in his jaw. He states it is 8 out of 10 but has improved to a 4 out of 10 after the increased dose and Dilaudid. He has been tolerating a clear liquid diet. No nausea or vomiting. Current Medications - Current Medications Current Medications: Active Medications Acetaminophen (Acetaminophen 325 Mg Tablet) 650 mg PO Q4HR PRN PRN Reason: Pain 1 to 4, or Fever Last Admin: 12/15/21 08:57 Dose: 650 mg Chlorhexidine Gluconate (Chlorhexidine Gluconate 15 Ml Udc) 15 ml PO BID [facility] Last Admin: 12/15/21 08:57 Dose: 15 ml Hydromorphone HCl (Hydromorphone 0.5 Mg/0.5 Ml Syringe) 1 mg IVP Q2H PRN PRN Reason: Pain 8 to 10 Last Admin: 12/15/21 10:32 Dose: 1 mg Metronidazole (Flagyl 500 Mg/100 Ml) 500 mg in 100 mls @ 100 mls/hr IV Q8H [facility] Last Infusion: 12/15/21 06:05 Dose: Infused Ceftriaxone Sodium 2 gm/ (Sodium Chloride) 100 mls @ 200 mls/hr IV DAILY [facility] Last Infusion: 12/15/21 09:55 Dose: Infused Lisinopril (Lisinopril 20 Mg Tablet) 40 mg PO DAILY [facility] Last Admin: 12/15/21 08:58 Dose: 40 mg Magnesium Oxide (Magnesium Oxide 400 Mg Tablet) 400 mg PO DAILYWM [facility] Last Admin: 12/15/21 08:57 Dose: 400 mg Nicotine (Nicotine 14 Mg Patch) 1 patch TOP DAILY [facility] Last Admin: 12/15/21 10:10 Dose: 1 patch Ondansetron HCl (Ondansetron 4 Mg/2 Ml Vial) 4 mg IVP Q6HR PRN PRN Reason: Nausea / Vomiting Oxcarbazepine (Oxcarbazepine 150 Mg Tablet) 900 mg PO BID [facility] Last Admin: 12/15/21 10:10 Dose: 900 mg Oxycodone HCl (Oxycodone 5 Mg Tablet) 5 mg PO Q4HR PRN PRN Reason: PAIN Last Admin: 12/15/21 08:57 Dose: 5 mg Sodium Chloride (Sodium Chloride Flush 0.9% 10 Ml Syringe) 10 ml IVP PRN PRN PRN Reason: NEEDED PER PROVIDER ORDERS Last Admin: 12/14/21 20:56 Dose: 10 ml Sodium Chloride (Sodium Chloride Flush 0.9% 10 Ml Syringe) 10 ml IVP 0100,0900,1700 [facility] Last Admin: 12/15/21 08:58 Dose: 10 ml Lisinopril [Zestril] 40 mg PO DAILY 12/12/21 OXcarbazepine [Trileptal] 900 mg PO BID 12/12/21 hydroCHLOROthiazide [Hydrodiuril] 25 mg PO DAILY 12/12/21 Objective - Vital Signs/Intake & Output Reviewed Vital Signs: Yes Vital Signs: Vital Signs x48h Pulse Resp BP Pulse Ox 12/15/21 05:00 95 18 145/87 H 93 12/14/21 23:59 85 18 145/91 H 97 Intake & Output: Intake & Output 12/12/21 12/13/21 12/14/21 12/15/21 23:59 23:59 23:59 23:59 Intake Total 200 2522.397 100 800.003 Output Total 175 750 Balance 200 2522.397 -75 50.003 - Objective General Appearance: positive: No acute distress Eyes Bilateral: positive: Conjunctivae nml Neck: positive: Other (There is significant swelling and edema over the left neck and submandibular region. Incision appears clean, dry, and intact. There is an area of ecchymosis but no evidence of erythema. Tender to palpation.) Respiratory: positive: No respiratory distress. negative: Rales Cardiovascular: positive: Regular rate & rhythm. negative: Tachycardia, Systolic murmur Abdomen: positive: Non-tender, No distention. negative: Tenderness Skin: positive: Warm, Dry Extremities: positive: No pedal edema - Lab Results Fish Bones: 12/15/21 05:13 12/15/21 05:13 Other Labs: Lab Results x24hrs 12/15/21 12/15/21 12/14/21 Range/Units 05:13 05:13 08:24 WBC 8.2 (4.8-10.8) x10^3/uL RBC 3.71 L (4.70-6.10) 10^6/uL Hgb 12.4 L (14.0-18.0) g/dL Hct 36.9 L (42.0-52.0) % MCV 99.5 H (80.0-94.0) fL MCH 33.4 H (27.0-31.0) pg MCHC 33.6 (32.0-36.0) g/dL RDW 14.4 (12.0-15.0) % Plt Count 183 (130-450) 10^3/uL MPV 9.3 (7.4-11.4) fL Neut # (Auto) 5.9 (1.5-6.6) 10^3/uL Lymph # (Auto) 1.5 (1.5-3.5) 10^3/uL [place] # (Auto) 0.6 (0.0-1.0) 10^3/uL Eos # (Auto) 0.2 (0.0-0.7) 10^3/uL Baso # (Auto) 0.1 (0.0-0.1) 10^3/uL Absolute Nucleated RBC 0.00 x10^3/uL Nucleated RBC % 0.0 /100WBC Sodium 130 L 130 L (135-145) mmol/L Potassium 3.8 3.9 (3.5-5.0) mmol/L Chloride 96 L 96 L (101-111) mmol/L Carbon Dioxide 28 26 (21-32) mmol/L Anion Gap 6.0 8.0 (6-13) BUN 8 8 (6-20) mg/dL Creatinine 0.6 0.5 L (0.6-1.2) mg/dL Estimated GFR (MDRD) 137 169 (>89) Glucose 121 H 95 (70-100) mg/dL Calcium 8.8 8.9 (8.5-10.3) mg/dL Magnesium 1.4 L (1.7-2.8) mg/dL 12/14/21 Range/Units 08:24 WBC 5.5 (4.8-10.8) x10^3/uL RBC 3.98 L (4.70-6.10) 10^6/uL Hgb 13.2 L (14.0-18.0) g/dL Hct 39.5 L (42.0-52.0) % MCV 99.2 H (80.0-94.0) fL MCH 33.2 H (27.0-31.0) pg MCHC 33.4 (32.0-36.0) g/dL RDW 14.4 (12.0-15.0) % Plt Count 194 (130-450) 10^3/uL MPV 8.9 (7.4-11.4) fL Neut # (Auto) 2.9 (1.5-6.6) 10^3/uL Lymph # (Auto) 1.8 (1.5-3.5) 10^3/uL [place] # (Auto) 0.5 (0.0-1.0) 10^3/uL Eos # (Auto) 0.3 (0.0-0.7) 10^3/uL Baso # (Auto) 0.1 (0.0-0.1) 10^3/uL Absolute Nucleated RBC 0.00 x10^3/uL Nucleated RBC % 0.0 /100WBC Sodium (135-145) mmol/L Potassium (3.5-5.0) mmol/L Chloride (101-111) mmol/L Carbon Dioxide (21-32) mmol/L Anion Gap (6-13) BUN (6-20) mg/dL Creatinine (0.6-1.2) mg/dL Estimated GFR (MDRD) (>89) Glucose (70-100) mg/dL Calcium (8.5-10.3) mg/dL Magnesium (1.7-2.8) mg/dL ABX Reporting Has patient been on IV antibiotics over the past 48 hours?: Yes Assessment/Plan - Problem List (1) Acute osteomyelitis of mandible Impression: He is now postop day 1 of resection of the left mandible with placement of reconstruction plate and I&D of the left neck abscess. He remains on ceftriaxone and Flagyl. His pain has been difficult to control initially but the increased dose of Dilaudid has provided relief. We will continue Dilaudid 1 mg every 2 hours as needed and I have added oxycodone 5 mg every 4 hours. We will look to titrate him off of the IV pain medications over the next day or 2. I spoke with Dr. Fan today and we will trial meropenem as from his experience, infectious disease tends to use ertapenem on an outpatient basis. We will ensure he tolerates meropenem given his penicillin allergy. I will look to speak with infectious disease tomorrow to discuss long-term antibiotic use but likely ertapenem once a day will be sufficient given it covers gram- positive, gram-negative's, and anaerobes and can be used once a day for outpatient antibiotics. We will continue liquid diet as tolerated and we will begin to advance this as a swelling/edema improves. (2) Hyponatremia Impression: His sodium is stable at 130. This likely secondary to hydrochlorothiazide which we have held. We will continue with gentle IV hydration given his limited oral intake but will discontinue IV fluids tomorrow. (3) Seizure disorder Impression: Stable. We are continuing his home Trileptal. (4) HTN (hypertension) Impression: Blood pressure has been well controlled. We are continuing his home lisinopril but holding the hydrochlorothiazide given the hyponatremia. We will add amlodipine if he becomes hypertensive.
[2021-12-15] MEDS ORDERED: HYDROmorphone 1 MG/ML CARPUJECT ONE ×2 (08:31→16:49)
[2021-12-15] MEDS: cefTRIAXone 2 GM in SODIUM CHLORIDE 0.9% MINIBAG 100 ML IV SCH (08:54)
[2021-12-15] MEDS ORDERED: lisinopriL 20 MG TABLET ONE ×2 (08:55→10:11)
[2021-12-15] MEDS ORDERED: CHLORHEXIDINE GLUCONATE 15 ML UDC PO ONE (08:56)
[2021-12-15] MEDS ORDERED: SODIUM CHLORIDE 0.9% 100ML 100 ML IV ONE ×2 (08:56→14:37)
[2021-12-15] MEDS ORDERED: cefTRIAXone 2 GM VIAL ONE (08:56)
[2021-12-15] MEDS ORDERED: MAGNESIUM OXIDE 400 MG TABLET ONE ×2 (08:56→10:11)
[2021-12-15] MEDS: oxyCODONE 5 MG TABLET PO PRN ×4 (08:57→21:40)
[2021-12-15] MEDS: CHLORHEXIDINE GLUCONATE 15 ML UDC PO SCH ×2 (08:57→21:40)
[2021-12-15] MEDS: MAGNESIUM OXIDE 400 MG TABLET PO SCH (08:57)
[2021-12-15] MEDS: SODIUM CHLORIDE FLUSH 0.9% 10 ML SYRINGE IVP SCH ×2 (08:58→16:58)
[2021-12-15] MEDS: lisinopriL 20 MG TABLET PO SCH (08:58)
[2021-12-15] MEDS ORDERED: amLODIPine 5 MG TABLET PO SCH (09:00)
[2021-12-15] MEDS ORDERED: oxyCODONE 5 MG TABLET ONE ×3 (09:01→17:36)
[2021-12-15] MEDS ORDERED: NICOTINE 14 MG PATCH TOP ONE (10:09)
[2021-12-15] MEDS: OXcarbazepine 150 MG TABLET PO SCH ×2 (10:10→21:41)
[2021-12-15] MEDS: NICOTINE 14 MG PATCH TOP SCH (10:10)
[2021-12-15] MEDS ORDERED: OXcarbazepine 150 MG TABLET PO ONE (10:20)
[2021-12-15] MEDS: polyethylene glycoL 3350 17 GM PACKET PO SCH (13:37)
[2021-12-15] MEDS ORDERED: polyethylene glycoL 3350 17 GM PACKET ONE (13:46)
[2021-12-15] MEDS: MEROPENEM 1 GM in SODIUM CHLORIDE 0.9% MINIBAG 100 ML IV SCH ×2 (14:32→21:40)
[2021-12-15] MEDS ORDERED: DEXAMETHASONE 10 MG/ML VIAL ONE (14:38)
[2021-12-15] MEDS: DEXAMETHASONE 4 MG/ML VIAL IVP SCH ×2 (14:41→20:10)
[2021-12-15] MEDS ORDERED: DEXAMETHASONE 4 MG/ML VIAL ONE (14:49)
[2021-12-15] MEDS: KETOROLAC 15 MG/ML VIAL IVP PRN ×2 (16:11→21:41)
[2021-12-15] MEDS ORDERED: KETOROLAC 30 MG/ML VIAL ONE (16:20)
[2021-12-16] MEDS: HYDROmorphone 0.5 MG/0.5 ML SYRINGE IVP PRN ×9 (00:06→23:26)
[2021-12-16] MEDS: SODIUM CHLORIDE FLUSH 0.9% 10 ML SYRINGE IVP SCH ×4 (01:18→23:26)
[2021-12-16] MEDS: KETOROLAC 15 MG/ML VIAL IVP PRN ×4 (03:44→23:26)
[2021-12-16] MEDS: ACETAMINOPHEN 325 MG TABLET PO PRN ×4 (03:45→21:29)
[2021-12-16] MEDS: oxyCODONE 5 MG TABLET PO PRN ×5 (03:45→21:29)
[2021-12-16 05:16] LABS: BASOPHILS % (AUTO) 0.2 %; HCT - HEMATOCRIT 36.5 % (42.0-52.0); HGB - HEMOGLOBIN 12.5 g/dL (14.0-18.0); LYMPHOCYTES # (AUTO) 0.5 10^3/uL (1.5-3.5); LYMPHOCYTES % (AUTO) 6.1 %; MEAN CORPUSCULAR HEMOGLOBIN 33.9 pg (27.0-31.0); MEAN CORPUSCULAR HGB CONC 34.2 g/dL (32.0-36.0); MEAN CORPUSCULAR VOLUME 98.9 fL (80.0-94.0); MEAN PLATELET VOLUME 9.8 fL (7.4-11.4); MONOCYTES # (AUTO) 0.3 10^3/uL (0.0-1.0); MONOCYTES % (AUTO) 3.8 %; NEUTROPHILS # (AUTO) 7.8 10^3/uL (1.5-6.6); NEUTROPHILS % (AUTO) 89.7 %; PLT - PLATELET COUNT 201 10^3/uL (130-450); RED BLOOD COUNT 3.69 10^6/uL (4.70-6.10); RED CELL DISTRIBUTION WIDTH 13.9 % (12.0-15.0); WHITE BLOOD COUNT 8.7 x10^3/uL (4.8-10.8)
[2021-12-16 05:26] LABS: CALCIUM 8.9 mg/dL (8.5-10.3); CREATININE 0.6 mg/dL (0.6-1.2); POTASSIUM 4.3 mmol/L (3.5-5.0)
[2021-12-16] MEDS: MEROPENEM 1 GM in SODIUM CHLORIDE 0.9% MINIBAG 100 ML IV SCH ×3 (05:29→21:28)
--- NOTE | 2021-12-16 07:42 | PROVIDER PROGRESS NOTE ---
Subjective - Prog Note Date Prog Note Date: 12/16/21 - Subjective Subjective: He feels like his pain is a little better controlled today but still about 8 out of 10. Feels like the swelling is improved. Is able to tolerate a diet. Current Medications - Current Medications Current Medications: Active Medications Acetaminophen (Acetaminophen 325 Mg Tablet) 650 mg PO Q4HR PRN PRN Reason: Pain 1 to 4, or Fever Last Admin: 12/16/21 08:57 Dose: 650 mg Chlorhexidine Gluconate (Chlorhexidine Gluconate 15 Ml Udc) 15 ml PO BID [facility] Last Admin: 12/16/21 08:55 Dose: 15 ml Hydromorphone HCl (Hydromorphone 0.5 Mg/0.5 Ml Syringe) 1 mg IVP Q2H PRN PRN Reason: Pain 8 to 10 Last Admin: 12/16/21 07:55 Dose: 1 mg Meropenem 1 gm/ Sodium (Chloride) 100 mls @ 200 mls/hr IV Q8H [facility] Last Infusion: 12/16/21 06:00 Dose: Infused Ketorolac Tromethamine (Ketorolac 15 Mg/Ml Vial) 15 mg IVP Q6HR PRN PRN Reason: PAIN Stop: 12/20/21 16:00 Last Admin: 12/16/21 03:44 Dose: 15 mg Lisinopril (Lisinopril 20 Mg Tablet) 40 mg PO DAILY [facility] Last Admin: 12/16/21 08:56 Dose: 40 mg Magnesium Oxide (Magnesium Oxide 400 Mg Tablet) 400 mg PO DAILY[facility] Last Admin: 12/16/21 07:48 Dose: 400 mg Nicotine (Nicotine 14 Mg Patch) 1 patch TOP DAILY [facility] Last Admin: 12/16/21 08:58 Dose: 1 patch Ondansetron HCl (Ondansetron 4 Mg/2 Ml Vial) 4 mg IVP Q6HR PRN PRN Reason: Nausea / Vomiting Oxcarbazepine (Oxcarbazepine 150 Mg Tablet) 900 mg PO BID [facility] Last Admin: 12/16/21 08:56 Dose: 900 mg Oxycodone HCl (Oxycodone 5 Mg Tablet) 5 mg PO Q4HR PRN PRN Reason: PAIN Last Admin: 12/16/21 08:57 Dose: 5 mg Polyethylene Glycol (Polyethylene Glycol 3350 17 Gm Packet) 17 gm PO DAILY [facility] Last Admin: 12/16/21 08:55 Dose: 17 gm Sodium Chloride (Sodium Chloride Flush 0.9% 10 Ml Syringe) 10 ml IVP PRN PRN PRN Reason: NEEDED PER PROVIDER ORDERS Last Admin: 12/14/21 20:56 Dose: 10 ml Sodium Chloride (Sodium Chloride Flush 0.9% 10 Ml Syringe) 10 ml IVP 0100,090 0,1700 [facility] Last Admin: 12/16/21 08:57 Dose: 10 ml Lisinopril [Zestril] 40 mg PO DAILY 12/12/21 OXcarbazepine [Trileptal] 900 mg PO BID 12/12/21 hydroCHLOROthiazide [Hydrodiuril] 25 mg PO DAILY 12/12/21 Objective - Vital Signs/Intake & Output Reviewed Vital Signs: Yes Vital Signs: Vital Signs x48h Temp Pulse Resp BP Pulse Ox 12/16/21 04:39 36.4 C L 89 18 138/92 H 92 12/16/21 00:08 36.3 C L 91 16 160/90 H 92 Intake & Output: Intake & Output 12/13/21 12/14/21 12/15/21 12/16/21 23:59 23:59 23:59 23:59 Intake Total 2522.420 399 3628.343 520 Output Total 175 750 Balance 2522.397 -75 1683.343 520 - Objective General Appearance: positive: No acute distress, Alert Eyes Bilateral: positive: Conjunctivae nml Neck: positive: Other (There is still significant left-sided facial edema and swelling over the left mandible. Sutures in place without any surrounding erythema. Minimal tenderness.) Skin: positive: Warm, Dry Extremities: positive: No pedal edema - Lab Results Fish Bones: 12/16/21 04:26 12/16/21 04:26 Other Labs: Lab Results x24hrs 12/16/21 12/16/21 Range/Units 04:26 04:26 WBC 8.7 (4.8-10.8) x10^3/uL RBC 3.69 L (4.70-6.10) 10^6/uL Hgb 12.5 L (14.0-18.0) g/dL Hct 36.5 L (42.0-52.0) % MCV 98.9 H (80.0-94.0) fL MCH 33.9 H (27.0-31.0) pg MCHC 34.2 (32.0-36.0) g/dL RDW 13.9 (12.0-15.0) % Plt Count 201 (130-450) 10^3/uL MPV 9.8 (7.4-11.4) fL Neut # (Auto) 7.8 H (1.5-6.6) 10^3/uL Lymph # (Auto) 0.5 L (1.5-3.5) 10^3/uL [place] # (Auto) 0.3 (0.0-1.0) 10^3/uL Eos # (Auto) 0.0 (0.0-0.7) 10^3/uL Baso # (Auto) 0.0 (0.0-0.1) 10^3/uL Absolute Nucleated RBC 0.00 x10^3/uL Nucleated RBC % 0.0 /100WBC Sodium 129 L (135-145) mmol/L Potassium 4.3 (3.5-5.0) mmol/L Chloride 92 L (101-111) mmol/L Carbon Dioxide 29 (21-32) mmol/L Anion Gap 8.0 (6-13) BUN 11 (6-20) mg/dL Creatinine 0.6 (0.6-1.2) mg/dL Estimated GFR (MDRD) 137 (>89) Glucose 124 H (70-100) mg/dL Calcium 8.9 (8.5-10.3) mg/dL ABX Reporting Has patient been on IV antibiotics over the past 48 hours?: Yes Assessment/Plan - Problem List (1) Acute osteomyelitis of mandible Impression: He is now postop day 2 of a resection of the left mandible with placement lani nstruction plate. We have switched him to meropenem to ensure he is able to tolerate this given his penicillin allergy as you plan to use ertapenem on discharge. The biggest timmy to discharge at this point is his pain control. He is requiring Dilaudid every 2 hours. We did add Toradol yesterday as well as oxycodone. We also trialed 2 doses of Decadron as recommended by Dr. Fan. We will increase oxycodone to 10 mg every 4 hours in hopes of limiting the use of Dilaudid. I did speak with infectious disease today at [facility] and they agreed with using ertapenem on an outpatient basis for [address] Fan will place an outpatient referral for infectious disease once patient is discharged. (2) Hyponatremia Impression: This is chronic but stable. Likely due to the hydrochlorothiazide which we have held. He is taking p.o. so we will discontinue IV fluids. (3) Seizure disorder Impression: Stable. Continue home Trileptal. (4) HTN (hypertension) Impression: He is hypertensive today with systolics in the 150s to 160s. We will add amlodipine in addition to the lisinopril. We are holding hydrochlorothiazide given the hyponatremia and will likely discontinue this on discharge. His pain is likely exacerbating his hypertension.
[2021-12-16] MEDS: MAGNESIUM OXIDE 400 MG TABLET PO SCH (07:48)
[2021-12-16] MEDS: polyethylene glycoL 3350 17 GM PACKET PO SCH (08:55)
[2021-12-16] MEDS: CHLORHEXIDINE GLUCONATE 15 ML UDC PO SCH ×2 (08:55→21:28)
[2021-12-16] MEDS: lisinopriL 20 MG TABLET PO SCH (08:56)
[2021-12-16] MEDS: OXcarbazepine 150 MG TABLET PO SCH ×2 (08:56→21:28)
[2021-12-16] MEDS: NICOTINE 14 MG PATCH TOP SCH (08:58)
[2021-12-16] MEDS: amLODIPine 5 MG TABLET PO SCH (09:29)
--- NOTE | 2021-12-16 14:55 | OPERATIVE REPORT ---
Operative Report - General Admit Date: 12/12/21 Procedure Date: 12/14/21 Planned Procedure: 1. Ressection of left mandible osteomyelitis 2. Reconstruction of the left mandible with reconstruction plate via Risdon incision and trochar incision 3. Closure of 4 cm intraoral wound Pre-Op Diagnosis: L mandibular osteomyelitis Procedure Performed: 1. Ressection of left mandible osteomyelitis 2. Reconstruction of the left mandible with reconstruction plate via Risdon incision and trochar incision 3. Closure of 4 cm intraoral wound 4. Removal of teeth #18, 20,21 Post Op Diagnosis: L mandibular osteomyelitis - Procedure Note Primary Surgeon: Andrzej Fan DDS Anesthesia Provider: TATI James Anesthesia Technique: General ET tube (Nasal EDUARDA via R naris) Pathology: 1. L mandible sent to pathology 2. smaller specimes sent to micro for aerobic, anaerobic, and AFB Estimated Blood Loss (mL): 200 Urine Output (mL): 1,000 Indications: 61 yo M w/ worsening pain of the L mandible. Clinical and radiographic evaluation consistent with osteomyelitis of the L mandible with intraoral ulceration of the mucosa and exposure of the mandible. It was decided that removal of the diseased bone with reconstruction of the mandible with a large plate and closure of the intraoral wound was indicated. The RBAs were discussed with the patient, including pain, swelling, bleeding, poor cosmesis, disfigur ment of the face, head, and neck, malocclusion, hardware failure, persistence of the infection, need for further surgeries, difficulty eating and speaking, parasthesia of the mouth, face, and neck, and . Adequate time was given to answer all questions and informed consent was obtained. Findings: The pt was brought to the operating room and placed in a supine position on the OR table. GA induced by anesthesia, and the airway was secured w/ an nasal EDUARDA in the R naris. It was secured to the forehead in the usual fashion. THe eyes were protected with tegederms. The pressure points were padded and checked. Arms tucked. Prepped and draped in the standard sterile fashion. Formal timeout was executed. Local anesthesia w/ 17 mL of 2% lido w/ epi. Throat pack placed. Attn directed to the neck. The inf border of the mandible was marked and an incision was made 2mm inferior to the mandible through the skin. Dissected through the platysma and down to the submandibular salivary gland using a nerve stimulator. The facial vein and artery were identified, tied off, and divided. The dissection was then carried out to the inferior border of the mandible and through the periosteum. The mandible was exposed from the coronoid notch to the R parasymphisis. The L mental nerve was divided. The medial aspect of the L body was dissected in a subperiosteal plane. A plate was adapted to the mandible. Four screws were placed in each side. The screws were then removed and the plate was removed. The bone was ressected and a football bur was used to round off the margins until the only bone left was bleeding bone. One tooth was removed with the specimen of bone. Two additional teeth were removed, #20,21 were removed from the anterior portion of the ressection where the osteomyelitis abutted the teeth. Irrigated copiously with 2g ancef mixed with saline. Placed the plate and secured it with the two screws on each side of the defect in the same holes. The occlusion was anatomic and the alignment of the plate was excellent. The remaining screws were placed with copious irrigation. For the proximal segment it was necessary to use a trochar incision to place the screws on the superior ramus. Irrigated again with antibiotic impregnated irrigation. Closed the periosteal layer w/ 4-0 Vicryl. Closed the superficial layer of the deep cervical fascia with 4-0 vicryl. Closed the platysma w/ 4-0 vicryl. CLosed the subdermal layer with 4-0 vicryl. Closed the skin with 5-0 prolene. Closed the trochar with 5-0 prolene Attn directed intraorally. Placed a bite block. Closed the wound of the L mandible with 4-0 Vicryl. The wound was 4 cm long, from the area of the ramus to the teeth. Irrigated the mouth. Suctioned out all debris. Removed the throat pack. Dressed the extraoral wounds with bacitracin. Anesthesia then placed a PICC line. The patient was then taken to PACU in stable condition. Complications: None
--- NOTE | 2021-12-16 15:26 | PROVIDER PROGRESS NOTE ---
Subjective - General Admit Date: 12/12/21 Procedure Date: 12/14/21 Post Op Days: 2 Procedure Performed: L hemimandibulectomy with reconstruction - Review of Systems Wound/Incisions: positive: Healing well, No drainage HEENT: positive: Other (Pain levels remain high in the left neck. Taking adquate PO. Numbness in the L V3 as expected) All Other Systems: positive: Reviewed and negative Objective - Patient Data Vital Signs: Vital Signs x48h Temp Pulse Resp BP Pulse Ox 12/16/21 13:00 36 C L 86 86 H 130/80 96 12/16/21 08:59 36.4 C L 87 18 161/97 H 95 Intake & Output: Intake and Output Totals x24h 12/14/21 12/15/21 12/16/21 23:59 23:59 23:59 Intake Total 100 2433.343 1610 Output Total 175 750 Balance -75 8921.031 7387 - Lab Results Lab Results: 12/16/21 04:26 12/16/21 04:26 Other Lab Results: Lab Results x24hrs 12/16/21 12/16/21 Range/Units 04:26 04:26 WBC 8.7 (4.8-10.8) x10^3/uL RBC 3.69 L (4.70-6.10) 10^6/uL Hgb 12.5 L (14.0-18.0) g/dL Hct 36.5 L (42.0-52.0) % MCV 98.9 H (80.0-94.0) fL MCH 33.9 H (27.0-31.0) pg MCHC 34.2 (32.0-36.0) g/dL RDW 13.9 (12.0-15.0) % Plt Count 201 (130-450) 10^3/uL MPV 9.8 (7.4-11.4) fL Neut # (Auto) 7.8 H (1.5-6.6) 10^3/uL Lymph # (Auto) 0.5 L (1.5-3.5) 10^3/uL [place] # (Auto) 0.3 (0.0-1.0) 10^3/uL Eos # (Auto) 0.0 (0.0-0.7) 10^3/uL Baso # (Auto) 0.0 (0.0-0.1) 10^3/uL Absolute Nucleated RBC 0.00 x10^3/uL Nucleated RBC % 0.0 /100WBC Sodium 129 L (135-145) mmol/L Potassium 4.3 (3.5-5.0) mmol/L Chloride 92 L (101-111) mmol/L Carbon Dioxide 29 (21-32) mmol/L Anion Gap 8.0 (6-13) BUN 11 (6-20) mg/dL Creatinine 0.6 (0.6-1.2) mg/dL Estimated GFR (MDRD) 137 (>89) Glucose 124 H (70-100) mg/dL Calcium 8.9 (8.5-10.3) mg/dL - Current Medications Current Medications: Current Medications Generic Name Dose Route Start Last Admin Trade Name Freq PRN Reason Stop Dose Admin Acetaminophen 650 mg 12/12/21 20:09 12/16/21 13:18 Acetaminophen 325 Mg Tablet PO 650 mg Q4HR PRN Administration Pain 1 to 4, or Fever Amlodipine Besylate 5 mg 12/16/21 10:00 12/16/21 09:29 Amlodipine 5 Mg Tablet PO 5 mg DAILY [facility] Administration Chlorhexidine Gluconate 15 ml 12/13/21 09:00 12/16/21 08:55 Chlorhexidine Gluconate 15 Ml Udc PO 15 ml BID [facility] Administration Hydromorphone HCl 1 mg 12/15/21 07:55 12/16/21 13:18 Hydromorphone 0.5 Mg/0.5 Ml Syringe IVP 1 mg Q2H PRN Administration Pain 8 to 10 Meropenem 1 gm/ Sodium 100 mls @ 200 mls/hr 12/15/21 14:00 12/16/21 14:25 Chloride IV Infused Q8H [facility] Infusion Ketorolac Tromethamine 15 mg 12/15/21 16:01 12/16/21 10:47 Ketorolac 15 Mg/Ml Vial IVP 12/20/21 16:00 15 mg Q6HR PRN Administration PAIN Lisinopril 40 mg 12/13/21 09:00 12/16/21 08:56 Lisinopril 20 Mg Tablet PO 40 mg DAILY [facility] Administration Magnesium Oxide 400 mg 12/15/21 08:00 12/16/21 07:48 Magnesium Oxide 400 Mg Tablet PO 400 mg DAILYWM [facility] Administration Nicotine 1 patch 12/12/21 22:36 12/16/21 08:58 Nicotine 14 Mg Patch TOP 1 patch DAILY [facility] Administration Oxcarbazepine 900 mg 12/13/21 09:00 12/16/21 08:56 Oxcarbazepine 150 Mg Tablet PO 900 mg BID [facility] Administration Oxycodone HCl 5 mg 12/15/21 07:56 12/16/21 13:19 Oxycodone 5 Mg Tablet PO 5 mg Q4HR PRN Administration PAIN Polyethylene Glycol 17 gm 12/15/21 13:28 12/16/21 08:55 Polyethylene Glycol 3350 17 Gm Packet PO 17 gm DAILY [facility] Administration Sodium Chloride 10 ml 12/12/21 20:09 12/14/21 20:56 Sodium Chloride Flush 0.9% 10 Ml Syringe IVP 10 ml PRN PRN Administration NEEDED PER PROVIDER ORDERS Sodium Chloride 10 ml 12/13/21 01:00 12/16/21 13:53 Sodium Chloride Flush 0.9% 10 Ml Syringe IVP 10 ml 0100,0900,1700 [facility] Administration - Physical Exam ENT: positive: Other (SOM 15mm. Moderate to severe L neck postop edema and ecchymosis. Excellent function of the MM branch on the L and R. No R hypoesthesia Tongue protrudes midline) Impression/Plan - Problem List Problem List: POD #2, doing well - continue IV abx - encourage ambulation - encouraged transition to PO pain medications - encouraged good PO intake - watch cultures and path - Please call with any questions. - appreciate IM assistance Andrzej Fan DDS
[2021-12-16] MEDS: SENNA 8.6 MG TABLET PO SCH ×2 (16:04→21:28)
[2021-12-16] MEDS: CALCIUM CARBONATE CHEW 500 MG TABLET PO PRN ×2 (16:05→21:28)
[2021-12-16] MEDS: SODIUM CHLORIDE FLUSH 0.9% 10 ML SYRINGE IVP PRN (17:27)
[2021-12-17] MEDS: SENNA 8.6 MG TABLET PO SCH ×2 (02:06→08:53)
[2021-12-17] MEDS: oxyCODONE 5 MG TABLET PO PRN ×5 (02:06→20:40)
[2021-12-17] MEDS: HYDROmorphone 0.5 MG/0.5 ML SYRINGE IVP PRN ×5 (03:51→21:52)
[2021-12-17] MEDS: MEROPENEM 1 GM in SODIUM CHLORIDE 0.9% MINIBAG 100 ML IV SCH ×3 (05:45→21:51)
[2021-12-17 05:52] LABS: BASOPHILS # (AUTO) 0.1 10^3/uL (0.0-0.1); BASOPHILS % (AUTO) 0.7 %; EOSINOPHILS # (AUTO) 0.5 10^3/uL (0.0-0.7); EOSINOPHILS % (AUTO) 5.3 %; HCT - HEMATOCRIT 34.7 % (42.0-52.0); HGB - HEMOGLOBIN 11.7 g/dL (14.0-18.0); LYMPHOCYTES # (AUTO) 1.8 10^3/uL (1.5-3.5); LYMPHOCYTES % (AUTO) 21.6 %; MEAN CORPUSCULAR HEMOGLOBIN 33.3 pg (27.0-31.0); MEAN CORPUSCULAR HGB CONC 33.7 g/dL (32.0-36.0); MEAN CORPUSCULAR VOLUME 98.9 fL (80.0-94.0); MEAN PLATELET VOLUME 9.5 fL (7.4-11.4); MONOCYTES # (AUTO) 0.5 10^3/uL (0.0-1.0); MONOCYTES % (AUTO) 6.4 %; NEUTROPHILS # (AUTO) 5.5 10^3/uL (1.5-6.6); NEUTROPHILS % (AUTO) 65.6 %; PLT - PLATELET COUNT 186 10^3/uL (130-450); RED BLOOD COUNT 3.51 10^6/uL (4.70-6.10); RED CELL DISTRIBUTION WIDTH 14.1 % (12.0-15.0); WHITE BLOOD COUNT 8.4 x10^3/uL (4.8-10.8)
[2021-12-17] MEDS: KETOROLAC 15 MG/ML VIAL IVP PRN (05:55)
[2021-12-17 06:01] LABS: CALCIUM 9.5 mg/dL (8.5-10.3); CREATININE 0.6 mg/dL (0.6-1.2); POTASSIUM 3.6 mmol/L (3.5-5.0)
[2021-12-17] MEDS: MAGNESIUM OXIDE 400 MG TABLET PO SCH (07:33)
--- NOTE | 2021-12-17 07:54 | PROVIDER PROGRESS NOTE ---
Subjective - Prog Note Date Prog Note Date: 12/17/21 - Subjective Subjective: His only concern this point is his pain. It is little better but still feels it is not controlled without the use of Dilaudid he wants in a while. Is concerned that when he wakes up he can have severe pain and the oxycodone, Tylenol is not always enough. Current Medications - Current Medications Current Medications: Active Medications Acetaminophen (Acetaminophen 325 Mg Tablet) 650 mg PO Q4HR PRN PRN Reason: Pain 1 to 4, or Fever Last Admin: 12/16/21 21:29 Dose: 650 mg Amlodipine Besylate (Amlodipine 5 Mg Tablet) 5 mg PO DAILY [facility] Last Admin: 12/16/21 09:29 Dose: 5 mg Calcium Carbonate/Glycine (Calcium Carbonate Chew 500 Mg Tablet) 500 mg PO BID PRN PRN Reason: Heartburn Last Admin: 12/16/21 21:28 Dose: 500 mg Chlorhexidine Gluconate (Chlorhexidine Gluconate 15 Ml Udc) 15 ml PO BID [facility] Last Admin: 12/16/21 21:28 Dose: 15 ml Docusate Sodium (Docusate Sodium 250 Mg Capsule) 250 - 500 mg PO DAILY [facility] Hydromorphone HCl (Hydromorphone 0.5 Mg/0.5 Ml Syringe) 1 mg IVP Q2H PRN PRN Reason: Pain 8 to 10 Last Admin: 12/17/21 03:51 Dose: 1 mg Meropenem 1 gm/ Sodium (Chloride) 100 mls @ 200 mls/hr IV Q8H [facility] Last Infusion: 12/17/21 06:38 Dose: Infused Lisinopril (Lisinopril 20 Mg Tablet) 40 mg PO DAILY [facility] Last Admin: 12/16/21 08:56 Dose: 40 mg Magnesium Oxide (Magnesium Oxide 400 Mg Tablet) 400 mg PO DAILYWM [facility] Last Admin: 12/17/21 07:33 Dose: 400 mg Nicotine (Nicotine 14 Mg Patch) 1 patch TOP DAILY [facility] Last Admin: 12/16/21 08:58 Dose: 1 patch Ondansetron HCl (Ondansetron 4 Mg/2 Ml Vial) 4 mg IVP Q6HR PRN PRN Reason: Nausea / Vomiting Oxcarbazepine (Oxcarbazepine 150 Mg Tablet) 900 mg PO BID [facility] Last Admin: 12/16/21 21:28 Dose: 900 mg Oxycodone HCl (Oxycodone 5 Mg Tablet) 10 mg PO Q4HR PRN PRN Reason: PAIN Last Admin: 12/17/21 02:06 Dose: 10 mg Polyethylene Glycol (Polyethylene Glycol 3350 17 Gm Packet) 17 gm PO DAILY [facility] Last Admin: 12/16/21 08:55 Dose: 17 gm Senna (Senna 8.6 Mg Tablet) 17.2 - 25.8 mg PO Q6H [facility] Stop: 12/17/21 09:01 Last Admin: 12/17/21 02:06 Dose: 17.2 mg Sodium Chloride (Sodium Chloride Flush 0.9% 10 Ml Syringe) 10 ml IVP PRN PRN PRN Reason: NEEDED PER PROVIDER ORDERS Last Admin: 12/16/21 17:27 Dose: 10 ml Sodium Chloride (Sodium Chloride Flush 0.9% 10 Ml Syringe) 10 ml IVP 0 100,0900,1700 [facility] Last Admin: 12/16/21 23:26 Dose: 10 ml Lisinopril [Zestril] 40 mg PO DAILY 12/12/21 OXcarbazepine [Trileptal] 900 mg PO BID 12/12/21 hydroCHLOROthiazide [Hydrodiuril] 25 mg PO DAILY 12/12/21 Objective - Vital Signs/Intake & Output Reviewed Vital Signs: Yes Vital Signs: Vital Signs x48h Temp Pulse Resp BP Pulse Ox 12/17/21 03:53 36.4 C L 85 18 157/87 H 94 Intake & Output: Intake & Output 12/14/21 12/15/21 12/16/21 12/17/21 23:59 23:59 23:59 23:59 Intake Total 100 2433.343 2130 100 Output Total 175 750 Balance -75 3423.243 1651 100 - Objective General Appearance: positive: Alert Eyes Bilateral: positive: Conjunctivae nml Neck: positive: Other (He still has significant left-sided swelling/edema over the neck and mandible. Sutures are in place. There is minor ecchymosis. Minimal tenderness.) Respiratory: positive: No respiratory distress Cardiovascular: positive: Regular rate & rhythm Skin: positive: Warm, Dry Extremities: positive: No pedal edema - Lab Results Fish Bones: 12/17/21 05:45 12/17/21 05:45 Other Labs: Lab Results x24hrs 06/11/22 06/11/22 Range/Units 05:45 05:45 WBC 8.4 (4.8-10.8) x10^3/uL RBC 3.51 L (4.70-6.10) 10^6/uL Hgb 11.7 L (14.0-18.0) g/dL Hct 34.7 L (42.0-52.0) % MCV 98.9 H (80.0-94.0) fL MCH 33.3 H (27.0-31.0) pg MCHC 33.7 (32.0-36.0) g/dL RDW 14.1 (12.0-15.0) % Plt Count 186 (130-450) 10^3/uL MPV 9.5 (7.4-11.4) fL Neut # (Auto) 5.5 (1.5-6.6) 10^3/uL Lymph # (Auto) 1.8 (1.5-3.5) 10^3/uL [place] # (Auto) 0.5 (0.0-1.0) 10^3/uL Eos # (Auto) 0.5 (0.0-0.7) 10^3/uL Baso # (Auto) 0.1 (0.0-0.1) 10^3/uL Absolute Nucleated RBC 0.00 x10^3/uL Nucleated RBC % 0.0 /100WBC Sodium 129 L (135-145) mmol/L Potassium 3.6 (3.5-5.0) mmol/L Chloride 94 L (101-111) mmol/L Carbon Dioxide 28 (21-32) mmol/L Anion Gap 7.0 (6-13) BUN 9 (6-20) mg/dL Creatinine 0.6 (0.6-1.2) mg/dL Estimated GFR (MDRD) 137 (>89) Glucose 89 (70-100) mg/dL Calcium 9.5 (8.5-10.3) mg/dL ABX Reporting Has patient been on IV antibiotics over the past 48 hours?: Yes Assessment/Plan - Problem List (1) Acute osteomyelitis of mandible Impression: He is now postop day 3 of resection of the mandible due to osteomyelitis. His pain is slowly improving as he is requiring less Dilaudid each day. Yesterday we increased oxycodone to 10 mg every 4 hours. We will keep him on this current dose and will add ibuprofen and continue with Tylenol as needed. I am hoping his pain can be managed over next 24 hours in preparation for discharge. We will keep him on meropenem for IV antibiotics and the plan will be to do outpatient ertapenem once a day as also recommended by infectious disease. He already has a PICC line in place. The plan will likely be to set up outpatient antibiotics at the [facility] [place] and then Dr. Fan will place referral to infectious disease for outpatient follow-up. (2) Hyponatremia Impression: This is chronic and stable. He was thought to be hypovolemic hyponatremia due to HCTZ but this did not improve with IV fluids. We are continuing to hold his home hydrochlorothiazide and will discontinue this on discharge to prevent worsening hyponatremia in the future. (3) Seizure disorder Impression: Continue Trileptal. (4) HTN (hypertension) Impression: His blood pressure little improved today with systolic in the 140s. We have added amlodipine in addition to the lisinopril. I suspect the pain is exacerbating his hypertension but we will look to make adjustments if he remains hypertensive.
[2021-12-17] MEDS: SODIUM CHLORIDE FLUSH 0.9% 10 ML SYRINGE IVP SCH ×2 (08:05→16:48)
[2021-12-17] MEDS: OXcarbazepine 150 MG TABLET PO SCH ×2 (08:52→20:40)
[2021-12-17] MEDS: CHLORHEXIDINE GLUCONATE 15 ML UDC PO SCH ×2 (08:52→20:40)
[2021-12-17] MEDS: NICOTINE 14 MG PATCH TOP SCH (08:52)
[2021-12-17] MEDS: amLODIPine 5 MG TABLET PO SCH (08:53)
[2021-12-17] MEDS: polyethylene glycoL 3350 17 GM PACKET PO SCH (08:53)
[2021-12-17] MEDS: lisinopriL 20 MG TABLET PO SCH (08:53)
[2021-12-17] MEDS: DOCUSATE SODIUM 250 MG CAPSULE PO SCH (08:53)
[2021-12-17] MEDS: CALCIUM CARBONATE CHEW 500 MG TABLET PO PRN (11:38)
[2021-12-17] MEDS: ACETAMINOPHEN 325 MG TABLET PO PRN ×3 (11:38→20:40)
[2021-12-17] MEDS: IBUPROFEN 400 MG TABLET PO PRN ×2 (11:38→16:47)
[2021-12-18] MEDS: oxyCODONE 5 MG TABLET PO PRN ×5 (00:52→20:05)
[2021-12-18] MEDS: SODIUM CHLORIDE FLUSH 0.9% 10 ML SYRINGE IVP SCH ×4 (00:53→21:15)
[2021-12-18] MEDS: SODIUM CHLORIDE FLUSH 0.9% 10 ML SYRINGE IVP PRN ×4 (00:53→22:02)
[2021-12-18] MEDS: HYDROmorphone 0.5 MG/0.5 ML SYRINGE IVP PRN ×3 (00:59→08:03)
[2021-12-18] MEDS: ACETAMINOPHEN 325 MG TABLET PO PRN ×2 (00:59→05:37)
[2021-12-18 05:19] LABS: BASOPHILS # (AUTO) 0.1 10^3/uL (0.0-0.1); BASOPHILS % (AUTO) 1.2 %; EOSINOPHILS # (AUTO) 0.4 10^3/uL (0.0-0.7); EOSINOPHILS % (AUTO) 7.2 %; HCT - HEMATOCRIT 36.3 % (42.0-52.0); HGB - HEMOGLOBIN 12.1 g/dL (14.0-18.0); LYMPHOCYTES # (AUTO) 1.4 10^3/uL (1.5-3.5); MEAN CORPUSCULAR HEMOGLOBIN 33.5 pg (27.0-31.0); MEAN CORPUSCULAR HGB CONC 33.3 g/dL (32.0-36.0); MEAN CORPUSCULAR VOLUME 100.6 fL (80.0-94.0); MEAN PLATELET VOLUME 9.4 fL (7.4-11.4); MONOCYTES # (AUTO) 0.4 10^3/uL (0.0-1.0); NEUTROPHILS # (AUTO) 3.6 10^3/uL (1.5-6.6); NEUTROPHILS % (AUTO) 60.3 %; PLT - PLATELET COUNT 199 10^3/uL (130-450); RED BLOOD COUNT 3.61 10^6/uL (4.70-6.10); RED CELL DISTRIBUTION WIDTH 14.1 % (12.0-15.0)
[2021-12-18 05:29] LABS: CALCIUM 9.2 mg/dL (8.5-10.3); CREATININE 0.6 mg/dL (0.6-1.2)
[2021-12-18] MEDS: MEROPENEM 1 GM in SODIUM CHLORIDE 0.9% MINIBAG 100 ML IV SCH ×3 (05:37→22:02)
--- NOTE | 2021-12-18 07:35 | PROVIDER PROGRESS NOTE ---
Subjective - Prog Note Date Prog Note Date: 12/18/21 - Subjective Subjective: We will because pain might be a little improved. He is not trying to use of the Dilaudid less frequently. States his pain is about a 8 or 9 out of 10 and has improved to a 6 out of 10 with pain medication. Current Medications - Current Medications Current Medications: Active Medications Acetaminophen (Acetaminophen 500 Mg Tablet) 1,000 mg PO TID [facility] Amlodipine Besylate (Amlodipine 5 Mg Tablet) 5 mg PO DAILY [facility] Last Admin: 12/17/21 08:53 Dose: 5 mg Calcium Carbonate/Glycine (Calcium Carbonate Chew 500 Mg Tablet) 500 mg PO BID PRN PRN Reason: Heartburn Last Admin: 12/17/21 11:38 Dose: 500 mg Chlorhexidine Gluconate (Chlorhexidine Gluconate 15 Ml Udc) 15 ml PO BID [facility] Last Admin: 12/17/21 20:40 Dose: 15 ml Docusate Sodium (Docusate Sodium 250 Mg Capsule) 250 - 500 mg PO DAILY [facility] Last Admin: 12/17/21 08:53 Dose: 250 mg Hydromorphone HCl (Hydromorphone 0.5 Mg/0.5 Ml Syringe) 0.5 mg IVP Q3H PRN PRN Reason: Pain 8 to 10 Last Admin: 12/18/21 08:03 Dose: 0.5 mg Meropenem 1 gm/ Sodium (Chloride) 100 mls @ 200 mls/hr IV Q8H [facility] Last Infusion: 12/18/21 07:04 Dose: Infused Ibuprofen (Ibuprofen 600 Mg Tablet) 600 mg PO Q6HR PRN PRN Reason: PAIN Last Admin: 12/18/21 08:01 Dose: 600 mg Lisinopril (Lisinopril 20 Mg Tablet) 40 mg PO DAILY [facility] Last Admin: 12/17/21 08:53 Dose: 40 mg Magnesium Oxide (Magnesium Oxide 400 Mg Tablet) 400 mg PO DAILYWM [facility] Last Admin: 12/18/21 07:48 Dose: 400 mg Nicotine (Nicotine 14 Mg Patch) 1 patch TOP DAILY [facility] Last Admin: 12/17/21 08:52 Dose: 1 patch Ondansetron HCl (Ondansetron 4 Mg/2 Ml Vial) 4 mg IVP Q6HR PRN PRN Reason: Nausea / Vomiting Oxcarbazepine (Oxcarbazepine 150 Mg Tablet) 900 mg PO BID [facility] Last Admin: 12/17/21 20:40 Dose: 900 mg Oxycodone HCl (Oxycodone 5 Mg Tablet) 10 mg PO Q4HR PRN PRN Reason: PAIN Last Admin: 12/18/21 05:37 Dose: 10 mg Polyethylene Glycol (Polyethylene Glycol 3350 17 Gm Packet) 17 gm PO DAILY [facility] Last Admin: 12/17/21 08:53 Dose: 17 gm Sodium Chloride (Sodium Chloride Flush 0.9% 10 Ml Syringe) 10 ml IVP PRN PRN PRN Reason: NEEDED PER PROVIDER ORDERS Last Admin: 12/18/21 00:53 Dose: 10 ml Sodium Chloride (Sodium Chloride Flush 0.9% 10 Ml Syringe) 10 ml IVP 0100,0900,1700 [facility] Last Admin: 12/18/21 08:02 Dose: 10 ml Lisinopril [Zestril] 40 mg PO DAILY 12/12/21 OXcarbazepine [Trileptal] 900 mg PO BID 12/12/21 hydroCHLOROthiazide [Hydrodiuril] 25 mg PO DAILY 12/12/21 Objective - Vital Signs/Intake & Output Reviewed Vital Signs: Yes Vital Signs: Vital Signs x48h Temp Pulse Resp BP Pulse Ox 12/18/21 05:36 36.6 C 92 16 144/92 H 95 12/17/21 23:55 36.3 C L 86 18 152/86 H 93 Intake & Output: Intake & Output 12/15/21 12/16/21 12/17/21 12/18/21 23:59 23:59 23:59 23:59 Intake Total 2433.343 2130 1130 300 Output Total 750 Balance 6531.677 8168 1130 300 - Objective General Appearance: positive: Alert, Mild distress Eyes Bilateral: positive: Normal inspection, Conjunctivae nml ENT: positive: ENT inspection nml Neck: positive: Nml inspection, Other (He continues to have significant left- sided swelling and edema over the neck and mandible. Sutures in place with ecchymosis present but no erythema. Mild tenderness.) Respiratory: positive: No respiratory distress - Lab Results Fish Bones: 12/18/21 05:14 12/18/21 05:14 Other Labs: Lab Results x24hrs 12/18/21 12/18/21 Range/Units 05:14 05:14 WBC 6.0 (4.8-10.8) x10^3/uL RBC 3.61 L (4.70-6.10) 10^6/uL Hgb 12.1 L (14.0-18.0) g/dL Hct 36.3 L (42.0-52.0) % MCV 100.6 H (80.0-94.0) fL MCH 33.5 H (27.0-31.0) pg MCHC 33.3 (32.0-36.0) g/dL RDW 14.1 (12.0-15.0) % Plt Count 199 (130-450) 10^3/uL MPV 9.4 (7.4-11.4) fL Neut # (Auto) 3.6 (1.5-6.6) 10^3/uL Lymph # (Auto) 1.4 L (1.5-3.5) 10^3/uL [place] # (Auto) 0.4 (0.0-1.0) 10^3/uL Eos # (Auto) 0.4 (0.0-0.7) 10^3/uL Baso # (Auto) 0.1 (0.0-0.1) 10^3/uL Absolute Nucleated RBC 0.00 x10^3/uL Nucleated RBC % 0.0 /100WBC Sodium 131 L (135-145) mmol/L Potassium 4.0 (3.5-5.0) mmol/L Chloride 97 L (101-111) mmol/L Carbon Dioxide 28 (21-32) mmol/L Anion Gap 6.0 (6-13) BUN 9 (6-20) mg/dL Creatinine 0.6 (0.6-1.2) mg/dL Estimated GFR (MDRD) 137 (>89) Glucose 104 H (70-100) mg/dL Calcium 9.2 (8.5-10.3) mg/dL ABX Reporting Has patient been on IV antibiotics over the past 48 hours?: Yes Assessment/Plan - Problem List (1) Acute osteomyelitis of mandible Impression: He is now postop day for resection of left mandible with placement of a reconstruction plate. Pain continues to be difficult to control. He is still requiring Dilaudid every 3 hours. We currently have him on oxycodone 10 mg every 4 hours as needed along with Tylenol and ibuprofen as needed. We will make the Tylenol 1 g 3 times daily scheduled and will increase ibuprofen to 600 mg every 6 hours as needed. We will talk with Dr. Fan regarding the use of steroids again to see if that can help with some of the edema and pain. He remains on meropenem and the plan will be to use ertapenem on outpatient basis for 6 weeks. If his pain can be controlled then the plan will be to discharge him home tomorrow. (2) Hyponatremia Impression: This is chronic and stable. He was thought to be hypovolemic hyponatremia due to HCTZ but this did not improve with IV fluids. We are continuing to hold his home hydrochlorothiazide and will discontinue this on discharge to prevent worsening hyponatremia in the future. (3) Seizure disorder Impression: Continue Trileptal. (4) HTN (hypertension) Impression: His blood pressure is relatively well controlled on the amlodipine and lisinopril.
[2021-12-18] MEDS: MAGNESIUM OXIDE 400 MG TABLET PO SCH (07:48)
[2021-12-18] MEDS: IBUPROFEN 600 MG TABLET PO PRN ×3 (08:01→22:01)
[2021-12-18] MEDS: polyethylene glycoL 3350 17 GM PACKET PO SCH (08:56)
[2021-12-18] MEDS: OXcarbazepine 150 MG TABLET PO SCH ×2 (08:56→21:14)
[2021-12-18] MEDS: CHLORHEXIDINE GLUCONATE 15 ML UDC PO SCH ×2 (08:57→21:14)
[2021-12-18] MEDS: lisinopriL 20 MG TABLET PO SCH (08:57)
[2021-12-18] MEDS: NICOTINE 14 MG PATCH TOP SCH (08:58)
[2021-12-18] MEDS: amLODIPine 5 MG TABLET PO SCH (08:58)
[2021-12-18] MEDS: DOCUSATE SODIUM 250 MG CAPSULE PO SCH (08:58)
[2021-12-18] MEDS: CALCIUM CARBONATE CHEW 500 MG TABLET PO PRN (10:14)
[2021-12-18] MEDS: DEXAMETHASONE 4 MG/ML VIAL IVP SCH ×2 (12:05→21:15)
--- NOTE | 2021-12-18 12:47 | PROVIDER PROGRESS NOTE ---
Subjective - General Admit Date: 12/12/21 Procedure Date: 12/14/21 Post Op Days: 4 Procedure Performed: L hemimandibulectomy with reconstruction - Review of Systems HEENT: positive: Other (Incision clean, dry, intact. Sutures intact. Less swelling today. Skin softer and less distended. No drainage from the wound. SOM 20mm. Occlusion stable and repeatable.) All Other Systems: positive: Reviewed and negative Objective - Patient Data Vital Signs: Vital Signs x48h Temp Pulse Resp BP Pulse Ox 12/18/21 08:45 36.4 C L 89 18 138/88 H 96 12/18/21 05:36 36.6 C 92 16 144/92 H 95 Intake & Output: Intake and Output Totals x24h 12/16/21 12/17/21 12/18/21 23:59 23:59 23:59 Intake Total 2130 1130 550 Balance 2130 1130 550 - Lab Results Lab Results: 12/18/21 05:14 12/18/21 05:14 Other Lab Results: Lab Results x24hrs 12/18/21 12/18/21 Range/Units 05:14 05:14 WBC 6.0 (4.8-10.8) x10^3/uL RBC 3.61 L (4.70-6.10) 10^6/uL Hgb 12.1 L (14.0-18.0) g/dL Hct 36.3 L (42.0-52.0) % MCV 100.6 H (80.0-94.0) fL MCH 33.5 H (27.0-31.0) pg MCHC 33.3 (32.0-36.0) g/dL RDW 14.1 (12.0-15.0) % Plt Count 199 (130-450) 10^3/uL MPV 9.4 (7.4-11.4) fL Neut # (Auto) 3.6 (1.5-6.6) 10^3/uL Lymph # (Auto) 1.4 L (1.5-3.5) 10^3/uL [place] # (Auto) 0.4 (0.0-1.0) 10^3/uL Eos # (Auto) 0.4 (0.0-0.7) 10^3/uL Baso # (Auto) 0.1 (0.0-0.1) 10^3/uL Absolute Nucleated RBC 0.00 x10^3/uL Nucleated RBC % 0.0 /100WBC Sodium 131 L (135-145) mmol/L Potassium 4.0 (3.5-5.0) mmol/L Chloride 97 L (101-111) mmol/L Carbon Dioxide 28 (21-32) mmol/L Anion Gap 6.0 (6-13) BUN 9 (6-20) mg/dL Creatinine 0.6 (0.6-1.2) mg/dL Estimated GFR (MDRD) 137 (>89) Glucose 104 H (70-100) mg/dL Calcium 9.2 (8.5-10.3) mg/dL - Current Medications Current Medications: Current Medications Generic Name Dose Route Start Last Admin Trade Name Freq PRN Reason Stop Dose Admin Amlodipine Besylate 5 mg 12/16/21 10:00 12/18/21 08:58 Amlodipine 5 Mg Tablet PO 5 mg DAILY [facility] Administration Calcium Carbonate/Glycine 500 mg 12/16/21 15:45 12/18/21 10:14 Calcium Carbonate Chew 500 Mg Tablet PO 500 mg BID PRN Administration Heartburn Chlorhexidine Gluconate 15 ml 12/13/21 09:00 12/18/21 08:57 Chlorhexidine Gluconate 15 Ml Udc PO 15 ml BID [facility] Administration Dexamethasone 8 mg 12/18/21 11:49 12/18/21 12:05 Dexamethasone 4 Mg/Ml Vial IVP 12/18/21 21:01 8 mg BID [facility] Administration Docusate Sodium 250 - 500 mg 12/17/21 09:00 12/18/21 08:58 Docusate Sodium 250 Mg Capsule PO 250 mg DAILY [facility] Administration Hydromorphone HCl 0.5 mg 12/17/21 14:27 12/18/21 08:03 Hydromorphone 0.5 Mg/0.5 Ml Syringe IVP 0.5 mg Q3H PRN Administration Pain 8 to 10 Meropenem 1 gm/ Sodium 100 mls @ 200 mls/hr 12/15/21 14:00 12/18/21 07:04 Chloride IV Infused Q8H [facility] Infusion Ibuprofen 600 mg 12/18/21 07:38 12/18/21 08:01 Ibuprofen 600 Mg Tablet PO 600 mg Q6HR PRN Administration PAIN Lisinopril 40 mg 12/13/21 09:00 12/18/21 08:57 Lisinopril 20 Mg Tablet PO 40 mg DAILY [facility] Administration Magnesium Oxide 400 mg 12/15/21 08:00 12/18/21 07:48 Magnesium Oxide 400 Mg Tablet PO 400 mg DAILYWM [facility] Administration Nicotine 1 patch 12/12/21 22:36 12/18/21 08:58 Nicotine 14 Mg Patch TOP 1 patch DAILY [facility] Administration Oxcarbazepine 900 mg 12/13/21 09:00 12/18/21 08:56 Oxcarbazepine 150 Mg Tablet PO 900 mg BID [facility] Administration Oxycodone HCl 10 mg 12/16/21 15:31 12/18/21 12:05 Oxycodone 5 Mg Tablet PO 10 mg Q4HR PRN Administration PAIN Polyethylene Glycol 17 gm 12/15/21 13:28 12/18/21 08:56 Polyethylene Glycol 3350 17 Gm Packet PO 17 gm DAILY [facility] Administration Sodium Chloride 10 ml 12/12/21 20:09 12/18/21 12:06 Sodium Chloride Flush 0.9% 10 Ml Syringe IVP 10 ml PRN PRN Administration NEEDED PER PROVIDER ORDERS Sodium Chloride 10 ml 12/13/21 01:00 12/18/21 08:02 Sodium Chloride Flush 0.9% 10 Ml Syringe IVP 10 ml 0100,0900,1700 [facility] Administration Impression/Plan - Problem List Problem List: 61 yo M POD #4 s/p L hemimandibulectomy w/ reconstruction plate placement and closure of wound over the L mandibular alveolus. - mechanically altered diet - Encouraged good PO and ambulation - OK for d/c after adequate pain control with PO meds - f/u in my office the day after discharge - IV ertapenem 1g qday x 6 weeks. - referral to ID outpatient. - follow cultures and path Appreciate IM assitance. Please call w/ any questions. Andrzej Fan DDS
[2021-12-18] MEDS: ACETAMINOPHEN 500 MG TABLET PO SCH ×2 (13:50→22:02)
[2021-12-19] MEDS: oxyCODONE 5 MG TABLET PO PRN ×6 (04:06→20:10)
[2021-12-19] MEDS: IBUPROFEN 600 MG TABLET PO PRN ×3 (04:07→16:14)
[2021-12-19] MEDS: SODIUM CHLORIDE FLUSH 0.9% 10 ML SYRINGE IVP PRN (04:10)
[2021-12-19 04:57] LABS: BASOPHILS % (AUTO) 0.2 %; EOSINOPHILS % (AUTO) 0.2 %; HCT - HEMATOCRIT 34.8 % (42.0-52.0); HGB - HEMOGLOBIN 11.7 g/dL (14.0-18.0); LYMPHOCYTES # (AUTO) 0.7 10^3/uL (1.5-3.5); MEAN CORPUSCULAR HEMOGLOBIN 33.3 pg (27.0-31.0); MEAN CORPUSCULAR HGB CONC 33.6 g/dL (32.0-36.0); MEAN CORPUSCULAR VOLUME 99.1 fL (80.0-94.0); MEAN PLATELET VOLUME 9.7 fL (7.4-11.4); MONOCYTES # (AUTO) 0.2 10^3/uL (0.0-1.0); MONOCYTES % (AUTO) 2.8 %; NEUTROPHILS # (AUTO) 4.6 10^3/uL (1.5-6.6); NEUTROPHILS % (AUTO) 84.2 %; PLT - PLATELET COUNT 202 10^3/uL (130-450); RED BLOOD COUNT 3.51 10^6/uL (4.70-6.10); RED CELL DISTRIBUTION WIDTH 13.7 % (12.0-15.0); WHITE BLOOD COUNT 5.4 x10^3/uL (4.8-10.8)
[2021-12-19 05:07] LABS: CALCIUM 9.6 mg/dL (8.5-10.3); CREATININE 0.5 mg/dL (0.6-1.2); POTASSIUM 4.6 mmol/L (3.5-5.0)
[2021-12-19] MEDS: ACETAMINOPHEN 500 MG TABLET PO SCH ×2 (06:05→13:31)
[2021-12-19] MEDS: MEROPENEM 1 GM in SODIUM CHLORIDE 0.9% MINIBAG 100 ML IV SCH ×3 (06:06→20:10)
[2021-12-19] MEDS: MAGNESIUM OXIDE 400 MG TABLET PO SCH (07:47)
[2021-12-19] MEDS: lisinopriL 20 MG TABLET PO SCH (07:54)
[2021-12-19] MEDS: amLODIPine 5 MG TABLET PO SCH (07:55)
[2021-12-19] MEDS ORDERED: PANTOPRAZOLE 40 MG TABLET PO SCH (08:00)
--- NOTE | 2021-12-19 08:12 | Discharge Plan ---
Discharge Plan Problem Reviewed?: Yes Disposition: Home, Self Care Condition: Stable Prescriptions: Oxycodone HCl 10 mg PO Q4HR PRN 5 Days #30 tablet PRN Reason: Pain Docusate Sodium 250Mg Capsule [Colace 250Mg Capsule] 250 mg PO DAILY 30 Days #30 cap Ertapenem [INVanz] 1 gm IV Q24H #1 ml Nicotine 14 mg Patch [Nicoderm] 1 patch TOP DAILY 30 Days #30 patch amLODIPine [Norvasc] 10 mg PO DAILY 30 Days #60 tablet Chlorhexidine [Peridex] 15 ml PO BID #1 bottle Pantoprazole [Protonix] 40 mg PO QDAC 30 Days #30 tablet Diet: Soft Activity Restrictions: Activity as Tolerated Driving Restrictions: Yes (Do not drive while taking oxycodone) Instruction Topics: PICC Care Dc Health Concerns: You were admitted to the hospital because of an infection of your mandible bone which is part of your left jaw. You had surgery with Dr. Fan which involved removing that part of the infected bone and having a plate placed. You were also treated with IV antibiotics and you will need long-term antibiotics for about 6 weeks to treat the infection. Plan of Treatment: stephanie will start an antibiotic called ertapenem which will be once a day. He will receive this here at the [facility] clinic. You will be on this antibiotic for approximately [address] Fan will ultimately refer you to an infectious disease doctor to help manage the long-term antibiotics. Your blood pressure has been elevated while hospitalized. We will continue your home lisinopril. We will stop the hydrochlorothiazide and start you on amlodipine once a day. This is because your sodium levels are a little low and hydrochlorothiazide can contribute to this. It is recommended that you follow- up with your primary care physician in 1 to 2 weeks so that they can monitor your sodium levels. We will look to manage your pain with oxycodone 10 mg every 4 hours as needed, ibuprofen 600 mg every 6 hours as needed and Tylenol 1000 mg 3 times a day. I have also prescribed you medication called Protonix as the ibuprofen can upset your stomach and cause gastritis or an ulcer. Protonix will help decrease the risk of this. It is important that you take ibuprofen with food. 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 I also recommend you take Colace which is a stool softener to prevent constipation from the oxycodone. I also recommend you take [id number] magnesium 400 mg once a day as your magnesium levels were a little low. Care Goals: The goal is to manage your pain and to continue the long-term antibiotics to treat the infection. Assessment: The patient expressed understanding of the treatment plan. Additional Instructions or Follow Up instructions: Please follow-up with Dr. Fan tomorrow. He would like to see you 1 day after discharge. The number to his office is . Please call his office to schedule an appointment for tomorrow. Please follow-up with your primary care physician within 1 to 2 weeks. Follow-Up Care: [facility] - Medical No Smoking: If you smoke, Please STOP! Call for help. Follow-up with: Andrzej Fan DDS [Provider Admit Priv/Credential] -
--- NOTE | 2021-12-19 08:15 | DISCHARGE SUMMARY ---
"Discharge Summary Admit Date: 12/12/21 Discharge Date: 12/19/21 Discharging Provider: Jairon Jackson Primary Care Provider: Elva ward Code Status: Attempt Resuscitation Condition at Discharge: Stable Discharge Disposition: 01 Home, Self Care - DIAGNOSES Admission Diagnoses: Acute osteomyelitis of mandible Preop clearance Hyponatremia Seizure disorder Hypertension Hypomagnesemia Tobacco use Alcohol consumption binge drinking Discharge Diagnoses with Status of Each Condition: Acute osteomyelitis of mandible - improved. Hyponatremia - ongoing. Seizure disorder - stable. Hypertension - stable. - HPI History of Present Illness: H&P per Dr. Meyer: This is a 61-year-old white male with a history of hypertension (on lisinopril and HCTZ) and history of seizures (on Trileptal). 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 He has had no seizures since 2019. The patient's significant other, Grace, started to complain of the pt having bad breath in Aug 2021. He became more diligent with his oral care but the smell only got worse. In early November, he went to his dentist who reported that his left lower jaw had a molar that was 1/2 missing (down to its root) and next to it was a loose tooth. He was put on a course of Amoxicillin which he took as prescribed. The foul smell got better but the lose tooth fell out. He had a return visit in mid-November with the dentist who said the area was now exposed down to the jaw bone and an appointment was set up for him to see Dr Andrzej Fan, which was today. He developed a tooth ache approximately 2 weeks ago and 4 days ago he started to get lock jaw and it was painful to open his mouth. He was seen by Dr. Fan today where an x-ray suggested there was jaw osteomyelitis and the pt was sent to the ED to confirm this with a CT scan. It was confirmed and the patient is being admitted to treat L lower mandible osteomyelitis using IV antibiotics and the plan is for the pt to undergo surgical intervention tomorrow (mandibulectomy). The patient will also need a PICC line for a prolonged course of IV antibiotics. He had blood cultures done in ER and first antibiotics administered. Labs showed a normal WBC, L.A., CRP and ESR. His serum sodium is 131. - CONSULTS | PROCEDURES Consultations: Oral maxillofacial surgery Procedures: On December 14 he had resection of left mandible osteomyelitis. Reconstruction of the left mandible with reconstruction plate via Risdon incision and trocar incision. Closure of 4 cm intraoral wound. Removal of teeth #18, 20, 21. - HOSPITAL COURSE Hospital Course: The patient was admitted to the floor for osteomyelitis of the left mandible. He was treated with ceftriaxone and Flagyl IV given his penicillin allergy. He went to the OR on December 14 with oral maxillofacial surgery for resection of the osteomyelitis and placement of a reconstruction plate. It took us a few days to manage his pain postoperatively as he required Dilaudid quite frequently. We ultimately got it managed with oral oxycodone 10 mg every 4 hours as well as ibuprofen and Tylenol. We did switch his antibiotics to meropenem postoperatively to ensure he is tolerating carbapenems prior to discharge. We spoke with infectious disease and they agreed with using ertapenem on outpatient basis for at least 6 weeks. We were able to set this up with the [facility]. The patient will follow up with Dr. Fan tomorrow and he will place referral to infectious disease for outpatient follow-up. Was also noted to be hyponatremic during his hospitalization likely due to hydrochlorothiazide. This was held initially with IV fluids but his sodium remained stable without much change. On discharge, he was continued on l isinopril but we discontinue the hydrochlorothiazide and start him on amlodipine for his hypertension. He was instructed to follow-up with his primary care physician for repeat labs to ensure his sodium remained stable. He was provided with 30 tablets of 10 mg of oxycodone. He was instructed to t bobby this every 4 hours as needed. He was also instructed to take ibuprofen 600 mg every 6 hours as well as Tylenol 1000 mg 3 times daily. He was provided with Protonix given he will be using ibuprofen. SAFETY INSTRUCTOR was checked prior to discharge. - ALLERGIES Allergies/Adverse Reactions: Allergies Allergy/AdvReac Type Severity Reaction Status Date / Time Penicillins Allergy Unknown Verified 12/12/21 17:34 - MEDICATIONS Home Medications: Ambulatory Orders Medication Instructions Recorded Confirmed Lisinopril [Zestril] 40 mg PO DAILY 12/12/21 12/12/21 OXcarbazepine [Trileptal] 900 mg PO BID 12/12/21 12/12/21 Acetaminophen [Tylenol] 1,000 mg PO TID tablet 12/19/21 Chlorhexidine [Peridex] 15 ml PO BID #1 bottle 12/19/21 Docusate Sodium 250Mg Capsule 250 mg PO DAILY 30 Days #30 cap 12/19/21 [Colace 250Mg Capsule] Ertapenem [INVanz] 1 gm IV Q24H #1 ml 12/19/21 Ibuprofen [Motrin] 600 mg PO Q6HR PRN tablet 12/19/21 Magnesium Oxide [Mag Ox] 400 mg PO DAILYWM #0 tablet 12/19/21 Nicotine 14 mg Patch [Nicoderm] 1 patch TOP DAILY 30 Days #30 patch 12/19/21 Oxycodone HCl 10 mg PO Q4HR PRN 5 Days #30 tablet 12/19/21 Pantoprazole [Protonix] 40 mg PO QDAC 30 Days #30 tablet 12/19/21 amLODIPine [Norvasc] 10 mg PO DAILY 30 Days #60 tablet 12/19/21 - PHYSICAL EXAM AT DISCHARGE General Appearance: positive: No acute distress, Alert Eyes Bilateral: positive: Normal inspection Neck: positive: Other (He has improvement in the left mandible and neck edema. Sutures in place. No tenderness. Mild ecchymosis.) Respiratory: positive: No respiratory distress, Other. negative: Wheezes, Rales Cardiovascular: positive: Regular rate & rhythm, No murmur. negative: Tachycardia Abdomen: positive: Non-tender, No distention. negative: Tenderness Skin: positive: Warm, Dry Extremities: positive: No pedal edema Neurologic/Psychiatric: positive: Motor nml. negative: Disoriented to person, Disoriented to place Physical Exam Other/Comments: Vital Signs - 24 hr 12/18/21 12/19/21 12/19/21 20:57 00:17 05:00 Temperature 36.5 C 36.2 C L 36.3 C L Heart Rate [ 92 93 84 Brachial] Respiratory 18 18 18 Rate Blood Pressure 146/91 H 158/93 H 158/90 H [Left Brachial artery] O2 Saturation 94 95 91 L 12/19/21 12/19/21 12/19/21 07:33 11:30 16:08 Temperature 36.3 C L 36.3 C L 36.3 C L Heart Rate [ 81 93 93 Brachial] Respiratory 18 18 19 Rate Blood Pressure 166/101 H 153/89 H 142/82 H [Left Brachial artery] O2 Saturation 92 93 93 Oxygen O2 Source Room air - LABS Result Diagrams: 12/19/21 04:12 12/19/21 04:12 - DIAGNOSTIC IMAGING Diagnostic Imaging Results: Final report reviewed - FOLLOW UP Follow Up: He will be following up with Dr. Fan tomorrow. He was instructed to follow-up with his primary care physician within 1 to 2 weeks to monitor his sodium. He will be referred to infectious disease by Dr. Fan for management of his outpatient antibiotics. - TIME SPENT Time Spent in Discharge (Minutes): 37"
[2021-12-19] MEDS: CHLORHEXIDINE GLUCONATE 15 ML UDC PO SCH ×2 (08:53→20:10)
[2021-12-19] MEDS: OXcarbazepine 150 MG TABLET PO SCH ×2 (08:53→20:10)
[2021-12-19] MEDS: DOCUSATE SODIUM 250 MG CAPSULE PO SCH (08:53)
[2021-12-19] MEDS: polyethylene glycoL 3350 17 GM PACKET PO SCH (08:54)
[2021-12-19] MEDS: SODIUM CHLORIDE FLUSH 0.9% 10 ML SYRINGE IVP SCH ×2 (08:57→16:15)
[2021-12-19] MEDS: NICOTINE 14 MG PATCH TOP SCH (08:57)
[2021-12-19] MEDS ORDERED: amLODIPine 5 MG TABLET PO STA (09:57)
[2021-12-19 20:48] VITALS: BP 144/83
[2021-12-20] MEDS ORDERED: amLODIPine 5 MG TABLET PO SCH (09:00)
== END 2021-12-19 21:13 | disposition home or self-care (01) | DRG 141 ==
LOC: ED 17:19 → MS3 20:09
PROVIDERS: ADMIT Internal Medicine; ATTEND Internal Medicine
PROC: 0NR Head and Facial Bones, Replacement (ICD-10-PCS; 2021-12-14)
PROC: 0WQ Anatomical Regions, General, Repair (ICD-10-PCS; 2021-12-14)
PROC: 0CTX0Z1 Resection of Lower Tooth, Multiple, Open Approach (ICD-10-PCS; 2021-12-14)
PROC: 02HV33Z Insertion of Infusion Device into Superior Vena Cava, Percutaneous Approach (ICD-10-PCS; 2021-12-14)
PROC: 0NT Head and Facial Bones, Resection (ICD-10-PCS; principal; 2021-12-14 08:00)
DX: M27.2 Inflammatory conditions of jaws (principal); E87.1 Hypo-osmolality and hyponatremia; M84.68XA Pathological fracture in other disease, other site, initial encounter for fracture; I10 Essential (primary) hypertension; G40.909 Epilepsy, unspecified, not intractable, without status epilepticus; Z79.899 Other long term (current) drug therapy; Z20.822 Contact with and (suspected) exposure to COVID-19; T50.2X5A Adverse effect of carbonic-anhydrase inhibitors, benzothiadiazides and other diuretics, initial encounter; F17.210 Nicotine dependence, cigarettes, uncomplicated; E83.42 Hypomagnesemia; R94.31 Abnormal electrocardiogram [ECG] [EKG]; Y92.9 Unspecified place or not applicable
CPT/HCPCS: 36415; 70486; 71045; 80048; 80076; 83605; 83735; 84134; 85025; 85610; 85651; 86140; 87040; 87635; 93005; 93306; 96365; 96367; 96375; 99284; 99285; A9270; C1713; C1751; J0131; J0330; J1170; J2185; J7120

== ENCOUNTER 2022-03-17 13:27 | Inpatient (IN) | payer OTHER ==
[2022-03-17] MEDS ORDERED: SODIUM CHLORIDE FLUSH 0.9% 10 ML SYRINGE IVP PRN (14:05)
[2022-03-17] MEDS ORDERED: ONDANSETRON 4 MG/2 ML VIAL IVP PRN ×2 (14:11→21:14)
[2022-03-17 16:06] LABS: BASOPHILS # (AUTO) 0.1 10^3/uL (0.0-0.1); BASOPHILS % (AUTO) 1.1 %; EOSINOPHILS # (AUTO) 0.2 10^3/uL (0.0-0.7); HCT - HEMATOCRIT 40.2 % (42.0-52.0); LYMPHOCYTES # (AUTO) 2.1 10^3/uL (1.5-3.5); LYMPHOCYTES % (AUTO) 32.2 %; MEAN CORPUSCULAR HEMOGLOBIN 34.1 pg (27.0-31.0); MEAN CORPUSCULAR HGB CONC 34.8 g/dL (32.0-36.0); MEAN PLATELET VOLUME 9.6 fL (7.4-11.4); MONOCYTES # (AUTO) 0.5 10^3/uL (0.0-1.0); NEUTROPHILS # (AUTO) 3.6 10^3/uL (1.5-6.6); NEUTROPHILS % (AUTO) 55.4 %; PLT - PLATELET COUNT 269 10^3/uL (130-450); RED CELL DISTRIBUTION WIDTH 14.1 % (12.0-15.0); WHITE BLOOD COUNT 6.4 x10^3/uL (4.8-10.8)
[2022-03-17] MEDS ORDERED: LORazepam 2 MG/ML VIAL IVP PRN (16:09)
[2022-03-17] MEDS ORDERED: NICOTINE 14 MG PATCH TOP PRN (16:09)
[2022-03-17 16:16] LABS: INR 0.9 (0.8-1.2); PT - PROTHROMBIN TIME 10.5 secs (9.9-12.6)
[2022-03-17 16:18] LABS: ALBUMIN 4.2 g/dL (3.2-5.5); ALBUMIN/GLOBULIN RATIO 1.3 (1.0-2.2); BILIRUBIN,TOTAL 0.4 mg/dL (0.2-1.0); CALCIUM 10.2 mg/dL (8.5-10.3); CREATININE 0.7 mg/dL (0.6-1.2); POTASSIUM 4.9 mmol/L (3.5-5.0); TOTAL PROTEIN 7.4 g/dL (6.7-8.2)
--- NOTE | 2022-03-17 16:28 | XRAY Report ---
PROCEDURE: Chest 1 View X-Ray INDICATIONS: Pre-op, Facial abscess with fistula TECHNIQUE: One view of the chest was acquired. COMPARISON: None FINDINGS: Surgical changes and devices: None. Lungs and pleura: No pleural effusions or pneumothorax. Lungs are clear. Mediastinum: Mediastinal contours appear normal. Heart size is normal. Bones and chest wall: No suspicious bony lesions. Overlying soft tissues appear unremarkable. IMPRESSION: No acute pulmonary process. Reviewed by: Lluvia Jara MD on 03/17/2022 4:27 PM PDT Approved by: Lluvia Jara MD on 03/17/2022 4:27 PM PDT Station ID: [id number]
[2022-03-17] MEDS: SODIUM CHLORIDE FLUSH 0.9% 10 ML SYRINGE IVP SCH ×2 (16:45→23:42)
[2022-03-17] MEDS: SODIUM CHLORIDE 0.9% 1,000 ML IV SCH ×2 (16:45→22:58)
--- NOTE | 2022-03-17 17:16 | HISTORY & PHYSICAL EXAMINATION ---
Chief Complaint - Chief Complaint Chief Complaint: Drainage from face at previous surgery site History of Present Illness - Admitted From Admitted From:: Dr Fan office - History Obtained From History obtained from: Dr Fan, Dr Mccabe (ID, [facility]) and the patient - History of Present Illness HPI Comment/Other: This is a 61-year-old white male with a history of tobacco use and alcohol binging, HTN and seizure disorder (both grand mal and absence seizure Hx). 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 Patient had the PICC line removed and Ertapenem discontinued approximately 2 weeks ago. Today the patient went to see Dr. Fan in follow-up and complained of drainage from the surgical site at the lower jaw below the chin. Dr. Fan diagnosed him with a fistula. The patient is being direct admitted for management of recurrent infection, and to get IV antibiotics, and to have surgery for debridement by dr Fan, he will be taken to the OR today. History - Past Medical History Cardiovascular: reports: Hypertension Respiratory: reports: None Neuro: reports: Seizure disorder Endocrine/Autoimmune: reports: None GI: reports: None BUNDLER: reports: None : reports: None HEENT: reports: Other (recurrent infection) Psych: reports: None Musculoskeletal: reports: None Derm: reports: None Other Past Medical History: Alcohol abuse/binging - Past Surgical History HEENT: reports: Other (mandible surg then reconstruction with hardware 12/2021) - Family & Social History Family History: Mother: (Father of lung CA), Father: , Sister: Alive and Well (2 older brothers, 1 younger sister, health unknown. A 27-year-old daughter is healthy, a son in an auto accident.), Brother: Alive and Well Living Situation: With spouse/s.o. 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 He smokes about 1 pack/day of cigarettes. He used to drink between 0 to a sixpack of beer a day, now drinks 1-8 beers 3 times a week, and says he has never had alcohol withdrawal. - Substance History Use: Uses substance without health or social issues: Tobacco, Alcohol - POLST Patient has POLST: No Meds/Allgy - Home Medications Home Medications: Ambulatory Orders Medication Instructions Recorded Confirmed Lisinopril [Zestril] 40 mg PO DAILY 12/12/21 03/17/22 OXcarbazepine [Trileptal] 900 mg PO BID 12/12/21 03/17/22 Ibuprofen [Motrin] 400 mg PO Q6HR PRN 03/17/22 03/17/22 amLODIPine [Norvasc] 5 mg PO DAILY 03/17/22 03/17/22 - Allergies Allergies/Adverse Reactions: Allergies Allergy/AdvReac Type Severity Reaction Status Date / Time Penicillins Allergy Unknown Verified 03/17/22 15:32 Review of Systems - Integumentary Integumentary: reports: Other (He used to have a eason which he shaved today and the scar on the undersurface of the chin is visible with a small area of wet drainage.) - All Other Systems All Other Systems: reports: Reviewed and negative Exam - Vital Signs Reviewed Vital Signs: Yes Vital Signs: Vital Signs x48h Temp Pulse Resp BP Pulse Ox 03/17/22 16:19 36.5 C 92 18 134/90 H 94 - Physical Exam General Appearance: positive: No acute distress, Alert Eyes Bilateral: positive: Normal inspection, EOMI ENT: positive: Other (Asymmetrical lower jaw with L-sided swelling. Clean appearing surgical scar on the undersurface of the chin with 1 area of drainage noted left of mid-line.) Neck: positive: Nml inspection Respiratory: positive: No respiratory distress, Breath sounds nml Cardiovascular: positive: Regular rate & rhythm, No murmur Abdomen: positive: Non-tender, Nml bowel sounds Skin: positive: Warm, Dry Extremities: positive: Non-tender, No pedal edema Neurologic/Psychiatric: positive: Oriented x3 (Non-focal) Conclusion/Plan - Problem List (1) Cutaneous abscess of face Conclusion/Plan: This patient has a fistula from a presumed area of abscess to the skin surface. The patient will need debridement of the area done in the OR today, planned to be done by Dr. Fan of [facility]. The patient's ID specialist is Dr. Ronquillo, at [facility], who called me today and gave me further recommendations. Wound cultures are requested to be done and sent to the lab from the OR from the wound. The patient is to receive a PICC line and now will need an 8-week course of IV antibiotics. Ertapenem empirically was advised by Dr. Ronquillo. If the hardware is not removed while in the OR, the patient will then be on antibiotics lifelong to suppress infections of the hardware. If the hardware is removed, then there is not a plan for lifelong antibiotics by Dr. Ronquillo. We will plan for pain med use postoperatively. He will be kept n.p.o. now except meds, until taken to the OR. We will start IV fluids at a maintenance rate. Postoperatively he will likely be on clear liquids for his diet. (2) Penicillin allergy Conclusion/Plan: Dr. Ronquillo asked that I look up his allergy symptom to [facility] and it is hives. This was communicated to her during our phone call today. Dr. Ronquillo then asked that we do an on Amoxicillin challenge while he is hospitalized here, by giving a small dose of 250 mg of Amoxicillin and watch if he has an allergic reaction of any kind. We will treat hives or anaphylaxis as needed. If he has no significant allergic reaction then the treatment plan for lifelong suppressive antibiotic would be Augmentin, she said. (3) Seizure disorder Conclusion/Plan: We will continue his usual antiseizure medications once his medication list is reconciled. (4) HTN (hypertension) Conclusion/Plan: Will resume his usual home medications of lisinopril and amlodipine, once the doses are reconciled. (5) Alcohol consumption binge drinking Conclusion/Plan: Will order CIWA protocol and as needed Ativan for any withdrawal symptoms. Will order daily thiamine (6) Tobacco use Conclusion/Plan: Chest x-ray was ordered for preop evaluation>> No acute pulmonary disease was reported. The patient was advised by me that he needs smoking cessation since this is harming his oral hygiene and lungs. A nicotine patch will be ordered as needed here for nicotine cravings. - Lab Results Fish Bones: 03/18/22 05:34 03/18/22 05:34 - Other Other Results/Comments: Attestation: The patient is expected to be discharged or transferred to another facility within 96 hours: Yes.
[2022-03-17] MEDS ORDERED: NON FORMULARY MED (Oxycodone Hcl [Oxycodone Hcl] 10 MG Tablet) PO PRN (18:07)
--- NOTE | 2022-03-17 18:22 | PHARMACY PROGRESS NOTE ---
- Best Possible Medication History Admit Date and Time: 03/17/22 1402 Processed by: Pharmacy Medication History completed: Yes Patient Interview: Completed Secondary Source(s): Insurance records (pt provided piece of paper that he had written the active meds on. I also spoke with pt with in room. Pt took all morning meds and would need a dose of oxcarbezepine in the pm. I let Dr. Blum know. I asked pt if he was interested in quiting smoking and pt states no, but would like a nicotine patch) As the person ultimately responsible for medication therapy, providers are able to order a medication from an existing home medication list in [facility] via the "Reconcile Routine" prior to Confirmation of that medication by network and threat support specialist. Such practice is discouraged except when the physician, in their clinical judgment, deems that a medical need exists for a medication without regard to previous use.
--- NOTE | 2022-03-17 18:52 | CONSULTATION NOTE ---
Consultation Report: verbal consult by Dr. Fan for a PICC line for long-term Abx use. Discussed patient with Dr Fan and PICC line can wait to be placed until Sunday morning as pt needs it for Abx after discharge from hospital and we do not place PICC lines after hours and on the weekends. Dr. Fan in full agreement
--- NOTE | 2022-03-17 18:54 | ANESTHESIA ---
Pre-Anesthesia VS, & Labs - Diagnosis face/neck abscess with fistula - Procedure I&D face, neck Vital Signs: Temp Pulse Resp BP Pulse Ox 36.5 C 92 18 134/90 H 94 03/17/22 16:19 03/17/22 16:19 03/17/22 16:19 03/17/22 16:19 03/17/22 16:19 Height: 5 ft 8 in Weight (kg): 78.5 kg Body Mass Index: 26.3 BMI Classification: Overweight - NPO >8 hours - Lab Results Current Lab Results: Laboratory Tests 03/17/22 15:58: Sodium 138, Potassium 4.9, Chloride 106, Carbon Dioxide 21, Anion Gap 11.0, BUN 21 H, Creatinine 0.7, Estimated GFR (MDRD) 115, Glucose 99, Calcium 10.2, Total Bilirubin 0.4, AST 96 H, ALT 92 H, Alkaline Phosphatase 95, Total Protein 7.4, Albumin 4.2, Globulin 3.2, Albumin/Globulin Ratio 1.3 03/17/22 15:58: PT 10.5, INR 0.9 03/17/22 15:58: WBC 6.4, RBC 4.10 L, Hgb 14.0, Hct 40.2 L, MCV 98.0 H, MCH 34.1 H, MCHC 34.8, RDW 14.1, Plt Count 269, MPV 9.6, Neut # (Auto) 3.6, Lymph # (Auto) 2.1, [place] # (Auto) 0.5, Eos # (Auto) 0.2, Baso # (Auto) 0.1, Absolute Nucleated RBC 0.00, Nucleated RBC % 0.0 Fish Bones: 03/17/22 15:58 03/17/22 15:58 Home Medications and Allergies Home Medications: Ambulatory Orders Ibuprofen [Motrin] 400 mg PO Q6HR PRN 03/17/22 amLODIPine [Norvasc] 5 mg PO DAILY 03/17/22 Active Medications Acetaminophen (Acetaminophen 325 Mg Tablet) 650 mg PO Q4HR PRN PRN Reason: Pain 1 to 4, or Fever Amlodipine Besylate (Amlodipine 5 Mg Tablet) 5 mg PO DAILY BRIGHT Hydromorphone HCl (Hydromorphone 2 Mg/Ml Vial) 2 mg IVP Q2H PRN PRN Reason: Severe Pain Sodium Chloride (Normal Saline 0.9%) 1,000 mls @ 100 mls/hr IV .Q10H [facility] Last Admin: 03/17/22 16:45 Dose: 100 mls/hr Lisinopril (Lisinopril 20 Mg Tablet) 40 mg PO DAILY [facility] Lorazepam (Lorazepam 2 Mg/Ml Vial) 1 mg IVP Q30M PRN; Protocol PRN Reason: CIWA >8 Nicotine (Nicotine 14 Mg Patch) 1 patch TOP DAILY PRN PRN Reason: Nicotine Craving Ondansetron HCl (Ondansetron 4 Mg/2 Ml Vial) 4 mg IVP Q6HR PRN PRN Reason: Nausea / Vomiting Oxcarbazepine (Oxcarbazepine 150 Mg Tablet) 900 mg PO BID [facility] Sodium Chloride (Sodium Chloride Flush 0.9% 10 Ml Syringe) 10 ml IVP PRN PRN PRN Reason: NEEDED PER PROVIDER ORDERS Sodium Chloride (Sodium Chloride Flush 0.9% 10 Ml Syringe) 10 ml IVP 0100,0900,1700 [facility] Last Admin: 03/17/22 16:45 Dose: 10 ml Lisinopril [Zestril] 40 mg PO DAILY 12/12/21 OXcarbazepine [Trileptal] 900 mg PO BID 12/12/21 Ibuprofen [Motrin] 400 mg PO Q6HR PRN 03/17/22 amLODIPine [Norvasc] 5 mg PO DAILY 03/17/22 Allergies/Adverse Reactions: Allergies Allergy/AdvReac Type Severity Reaction Status Date / Time Penicillins Allergy Unknown Verified 03/17/22 15:32 Anes History & Medical History - Anesthetic History Anesthesia Complications: reports: No previous complications Family history of Anesthesia Complications: Denies Family history of Malignant Hyperthermia: Denies - Medical History Cardiovascular: reports: Hypertension Pulmonary: reports: None Gastrointestinal: reports: None Urinary: reports: None Neuro: reports: Seizure disorder Musculoskeletal: reports: None Endocrine/Autoimmune: reports: None Blood Disorders: reports: None Skin: reports: None Smoking Status: Current every day smoker Other Past Medical History: Alcohol abuse/binging - Surgical History Eyes Ears Nose Throat (EENT): reports: Other (mandible surg then reconstruction with hardware 12/2021) Exam General: Alert, Oriented x3, Cooperative Dental: Poor dentition, Other (see OP note from 12/14/21) Mouth Openin Fingerbreadth Neck Mobility: Normal Mallampati classification: III Thyromental Distance: 4-6 cm Respiratory: Lungs clear Cardiovascular: Regular rate Plan Anesthesia Type: General Consent for Procedure(s) Verified and Reviewed: Yes Code Status: Attempt Resuscitation ASA classification: 4-Incapacitating disease Is this case an emergency?: Yes
[2022-03-17] MEDS ORDERED: OXYMETAZOLINE HCL 100 SPRAYS BOTTLE ONE (19:13)
[2022-03-17] MEDS ORDERED: MIDAZOLAM 2 MG/2 ML VIAL ONE (19:14)
[2022-03-17] MEDS ORDERED: PROPOFOL 200 MG/20 ML VIAL IVP ONE (19:14)
[2022-03-17] MEDS ORDERED: LIDOCAINE-MPF 2% 5 ML VIAL ONE (19:14)
[2022-03-17] MEDS ORDERED: fentaNYL 100 MCG/2 ML VIAL ONE ×2 (19:14→20:22)
[2022-03-17] MEDS ORDERED: SUGAMMADEX 200 MG/2 ML VIAL IVP ONE (19:15)
[2022-03-17] MEDS ORDERED: SUCCINYLCHOLINE 200 MG/10 ML VIAL ONE (19:15)
[2022-03-17] MEDS ORDERED: ONDANSETRON 4 MG/2 ML VIAL ONE (19:15)
[2022-03-17] MEDS ORDERED: ROCURONIUM 50 MG/5 ML VIAL ONE (19:15)
[2022-03-17] MEDS ORDERED: DEXAMETHASONE 4 MG/ML VIAL ONE (20:20)
[2022-03-17] MEDS ORDERED: HYDROmorphone 1 MG/ML CARPUJECT ONE (20:23)
[2022-03-17] MEDS ORDERED: LIDOCAINE MPF 2%-EPI 1:200000 20 ML VIAL ONE (20:25)
[2022-03-17] MEDS ORDERED: CLINDAMYCIN 900 MG/50 ML 50 ML IV ONE (20:46)
[2022-03-17] MEDS ORDERED: LIDOCAINE 2%-EPI 1:100000 20 ML MDV SUBQ ONE ×3 (20:53)
[2022-03-17] MEDS ORDERED: CHLORHEXIDINE GLUCONATE 15 ML UDC PO ONE (20:54)
[2022-03-17] MEDS ORDERED: NALOXONE 0.4 MG/ML VIAL IVP PRN (21:14)
[2022-03-17] MEDS ORDERED: METOCLOPRAMIDE 10 MG/2 ML VIAL IVP PRN (21:14)
[2022-03-17] MEDS ORDERED: ATROPINE ABBOJECT 1 MG/10 ML SYRINGE IVP PRN (21:14)
[2022-03-17] MEDS ORDERED: HYDROmorphone 0.5 MG/0.5 ML SYRINGE IVP PRN (21:14)
[2022-03-17] MEDS ORDERED: fentaNYL 100 MCG/2 ML VIAL IVP PRN (21:14)
[2022-03-17] MEDS ORDERED: ePHEDrine 50 MG/ML VIAL IVP PRN (21:14)
[2022-03-17] MEDS ORDERED: MORPHINE 2 MG/ML CARPUJECT IVP PRN (21:14)
[2022-03-17] MEDS ORDERED: BACITRACIN ZINC OINT 14 GM TOP ONE (21:57)
[2022-03-17] MEDS ORDERED: LACTATED RINGERS 1,000 ML IV SCH (22:00)
[2022-03-17] MEDS ORDERED: BACITRACIN ZINC OINT 1 PACKET TOP ONE (22:10)
[2022-03-17] MEDS ORDERED: LACTATED RINGERS 250 ML IV ONE (22:13)
--- NOTE | 2022-03-17 22:32 | OPERATIVE REPORT ---
Operative Report - General Admit Date: 03/17/22 Procedure Date: 03/17/22 Planned Procedure: Exploration of the left mandible with removal of teeth, bone, and hardware as needed and reconstruction as needed. Pre-Op Diagnosis: Osseocutaneous fistula, L mandible Procedure Performed: 1. Excision of osseocutaneous fistula of the left mandible 2. Excision of 3 cm osseomucosal fistula of the left mandible 3. Intraoral soft tissue advancement flap 4. Closure of 4cm intraoral wound over the L mandible 5. Closure of 3 cm wound of the left neck 6. Debridement of granulation tissue over the left mandible and mandibular hardware Post Op Diagnosis: Osseocutaneous fistula and osseomucosal fistula, L mandible - Procedure Note Primary Surgeon: Andrzej Fan DDS Anesthesia Provider: Khadijah Webb CRNA Anesthesia Technique: General ET tube (Via R naris) Estimated Blood Loss (mL): 10 Drain/Tube Type: Gurvinder Mccallum round drain Indications: 61 yo M 3 months s/p L hemimandibulectomy for osteomyelitis. Today he presented to clinic with drainage from the L parasymphyseal submanidbular skin. Clinical and radiographic appearance was consistent with osseocutaneous fistula and infected mandibular hardware. It was decided that exploratory surgery was indicated. The RBAs of this plan were discussed with the patient including pain, swelling, bleeding, need for further surgery, malocclusion, hardware failure, recurrence of fistula, parasthesia, numbness and loss of taste in the tongue, scarring, and severe facial deformity. Adequate time was given to answer all questions and informed consent was obtained. Findings: The patient was brought to the [facility] and placed in a supine position on the OR table. General anesthesia was induced and the airway was secured with a nasotracheal tube taped to the forehead in the usual fashion. The eyes were protected with tegederms. All pressure points were padded and checked. The arms were tucked. The patient was prepped and draped in the standard fashion. A formal timeout was executed. Local anesthesia was acheived w/ 5cc of 2%lidocaine w/ epi. Attention was directed to the left neck. The wound was swabbed for cultures and aerobic and anaerobic cultures were sent to micro. A blunt scissor was used to pen the wound, which easily opened onto the plate. A #10 blade was used to incise along the previous incision. The skin over the body and angle of the plate and proximal segment was relaxed and healthy, but the skin over the L parasymphysis was adhered to the plate and erythematous. Granulation tissue was curetted out of the wound through this incision and the plate was visualized. There was no bone loss around the screws, which were stable. The bone was healthy and bleeding. The area of concern was the granulation tissue around the plate itself. Attention was directed intraorally to the L mandible. A throat pack was placed. The wound over the plate was explored. Interestingly, this wound was formed by the two mucosal edges as they dove down in toward the plate instead of meeting each other. This left two yuan of tissue with a central canyon of wound, like a canoe, where the epithelium dove downwards. This resulted in communication of the oral contents with the hardware. The wound did not extend posteriorly to the proximal segment, but it did involve the distal segment of bone. The wound was opened and the plate was exposed. Granulation tusse was curetted out from around the plate. A thick band of scar tissue surrounded the plate. The diving layer of epithelium was excised with a #15 blade until all the margins of the wound were freshened. This included the floor of mouth margins, where the excision exposed the mylohyoid muscle. This was done knowing that the lingual nerve may become compromised, but the fistula had to be excised or oral contents would continue to enter the wound. After the diving layers of epithelium were excised and the margins were freshened, the mucosa was undermined with blunt dissection around the whole wound to allow for a layered closure and tensionless closure of the epithelial flap. The buccal tissue and the floor of mouth mucosa were both undermined so the soft tissue could be advanced. The site was irrigated copiously. A LA drain was placed. The scarred layers were closed first with 4-0 vicryl suture. The mucosa was then closed w/ 4-0 vicryl suture. Attention was then directed to the extraoral wound. The deep layers were closed w/ 4-0 vicryl suture. The skin was closed w/ 3-0 prolene suture. The LA drain emerged from the submental skin and was secured with a 3-0 nylon suture. The mouth was cleaned and the pharynx was suctioned. The throat pack was removed. The face was cleaned. The incisions were dressed with bacitracin. Care of the patient was returned to the anesthesia team. He was extubated uneventfully and transferred to PACU in stable condition. Complications: None - Other Other Information/Narrative: Prognosis of the plate depends on the following factors: 1. Complete closure of the intraoral wound and exclusion of oral contents from the bone/hardware 2. Smoking cessation 3. Oral hygiene/ diet for the next six weeks Plan: Remain in house over the weekend Place PICC on Sunday once PICC nurse is available Start ertapenem daily Chlorhexidine mouthrinse BID indefinitely Remove LA drain Sunday Full liquid diet for four weeks
--- NOTE | 2022-03-17 22:42 | ANESTHESIA POST OP EVALUATION ---
Anesthesia Post Eval - Post Anesthesia Eval Vitals: Last Vital Signs Temp 36.5 C 03/17/22 22:38 Pulse 93 03/17/22 22:38 Resp 12 03/17/22 22:38 BP 153/96 H 03/17/22 22:38 Pulse Ox 94 03/17/22 22:38 CV Function Including HR & BP: Stable Pain Control: Satisfactory Nausea & Vomiting: Negative Mental Status: Baseline Respiratory Status: Airway Patent Hydration Status: Satisfactory Anesthesia Complications: None
[2022-03-17] MEDS: OXcarbazepine 150 MG TABLET PO SCH ×2 (23:03→23:48)
[2022-03-17] MEDS: IBUPROFEN 800 MG TABLET PO SCH (23:42)
[2022-03-18] MEDS ORDERED: ERTAPENEM 1 GM IV SCH (00:01)
[2022-03-18] MEDS: HYDROmorphone 2 MG/ML VIAL IVP PRN ×5 (03:58→23:30)
[2022-03-18] MEDS: IBUPROFEN 800 MG TABLET PO SCH ×4 (05:48→23:45)
[2022-03-18 06:01] LABS: BASOPHILS % (AUTO) 0.2 %; HGB - HEMOGLOBIN 12.3 g/dL (14.0-18.0); LYMPHOCYTES # (AUTO) 0.8 10^3/uL (1.5-3.5); LYMPHOCYTES % (AUTO) 6.7 %; MEAN CORPUSCULAR HEMOGLOBIN 32.3 pg (27.0-31.0); MEAN CORPUSCULAR HGB CONC 32.4 g/dL (32.0-36.0); MEAN CORPUSCULAR VOLUME 99.7 fL (80.0-94.0); MEAN PLATELET VOLUME 9.8 fL (7.4-11.4); MONOCYTES # (AUTO) 0.5 10^3/uL (0.0-1.0); MONOCYTES % (AUTO) 3.7 %; NEUTROPHILS # (AUTO) 10.8 10^3/uL (1.5-6.6); PLT - PLATELET COUNT 254 10^3/uL (130-450); RED BLOOD COUNT 3.81 10^6/uL (4.70-6.10); RED CELL DISTRIBUTION WIDTH 14.6 % (12.0-15.0); WHITE BLOOD COUNT 12.1 x10^3/uL (4.8-10.8)
[2022-03-18 06:11] LABS: CALCIUM 9.1 mg/dL (8.5-10.3); CREATININE 0.5 mg/dL (0.6-1.2); MAGNESIUM 1.4 mg/dL (1.7-2.8); PHOSPHORUS 4.3 mg/dL (2.5-4.6); POTASSIUM 4.3 mmol/L (3.5-5.0)
[2022-03-18] MEDS ORDERED: LORazepam 1 MG TABLET PO PRN (07:56)
[2022-03-18] MEDS ORDERED: CHLORHEXIDINE GLUCONATE 15 ML UDC PO SCH ×2 (08:00→09:00)
[2022-03-18] MEDS: lisinopriL 20 MG TABLET PO SCH (08:38)
[2022-03-18] MEDS: amLODIPine 5 MG TABLET PO SCH (08:38)
[2022-03-18] MEDS: OXcarbazepine 150 MG TABLET PO SCH ×2 (08:38→20:59)
[2022-03-18] MEDS: CHLORHEXIDINE GLUCONATE 15 ML UDC PO SCH ×2 (08:50→20:59)
[2022-03-18] MEDS: SODIUM CHLORIDE 0.9% 1,000 ML IV SCH ×2 (08:53→20:59)
[2022-03-18] MEDS ORDERED: MAGNESIUM SULFATE 1 GM in SODIUM CHLORIDE 0.9% 50 ML IV ONE (10:00)
--- NOTE | 2022-03-18 10:03 | PROVIDER PROGRESS NOTE ---
Assessment/Plan - Problem List (1) Cutaneous abscess of face Assessment/Plan: (1) Cutaneous abscess of face Conclusion/Plan: This patient has a fistula from an area of abscess to the skin surface. The patient went to the OR for debridement done by Dr. Fan of [facility]. Wound cultures were requested to be sent to the lab from the OR from the wound. The patient's ID specialist is Dr. Ronquillo, at [facility], who gave me recommendations. The patient is to receive a PICC line on Mon (today is Sat) and will need an 8-week course of IV antibiotics. Ertapenem empirically was advised by Dr. Ronquillo. We do not have this for inpts therefore he will be put on Meropenam iv as an inpt Today is POD #1 Postoperatively he will likely be on clear liquids for his diet. Pain meds prn Dr Mita saucedo he needs lifelong Peridex b.i.d The hardware was not removed while in the OR, the patient will then be on antibiotics lifelong to suppress infections of the hardware as per Dr Ronquillo, possibly using Augmentin (see #2). (2) Penicillin allergy Conclusion/Plan: Dr. Ronquillo asked that I look up his allergy symptom to N and it is hives. This was communicated to her during our phone call today. Dr. Ronquillo then asked that we do an on Amoxicillin challenge while he is hospitalized here, by giving a small dose of 250 mg of Amoxicillin and watch if he has an allergic reaction of any kind. We will treat hives or anaphylaxis as needed. If he has no significant allergic reaction then the treatment plan for lifelong suppressive antibiotic would be Augmentin, she said. (3) Seizure disorder Conclusion/Plan: We are continuing his usual Trileptal antiseizure medications while here. (4) HTN (hypertension) Conclusion/Plan: We resumed his usual home medications of lisinopril and amlodipine, with parameters for holding them (5) Alcohol consumption binge drinking Conclusion/Plan: We ordered CIWA protocol and as needed Ativan for any withdrawal symptoms. Also ordered daily thiamine (6) Tobacco use Conclusion/Plan: Chest x-ray was ordered for preop evaluation>> No acute pulmonary disease was reported. The patient was advised by me that he needs smoking cessation since this is harming his oral hygiene and lungs. Smoking cessation is also recommended in Dr. Andrzej Fan' note. A nicotine patch was ordered as needed here for nicotine cravings. - Current Meds Current Meds: Current Medications Generic Name Dose Route Start Last Admin Trade Name Freq PRN Reason Stop Dose Admin Amlodipine Besylate 5 mg 03/18/22 09:00 03/18/22 08:38 Amlodipine 5 Mg Tablet PO 5 mg DAILY BRIGHT Administration Chlorhexidine Gluconate 15 ml 03/18/22 09:00 03/18/22 08:50 Chlorhexidine Gluconate 15 Ml Udc PO 15 ml BID BRIGHT Administration Hydromorphone HCl 2 mg 03/17/22 18:10 03/18/22 08:45 Hydromorphone 2 Mg/Ml Vial IVP 2 mg Q2H PRN Administration Severe Pain Sodium Chloride 1,000 mls @ 100 mls/hr 03/17/22 15:00 03/18/22 08:53 Normal Saline 0.9% IV 100 mls/hr .Q10H BRIGHT Administration Ibuprofen 800 mg 03/18/22 00:00 03/18/22 05:48 Ibuprofen 800 Mg Tablet PO 800 mg Q6H BRIGHT Administration Lisinopril 40 mg 03/18/22 09:00 03/18/22 08:38 Lisinopril 20 Mg Tablet PO 40 mg DAILY BRIGHT Administration Oxcarbazepine 900 mg 03/17/22 21:00 03/18/22 08:38 Oxcarbazepine 150 Mg Tablet PO 900 mg BID BRIGHT Administration Sodium Chloride 10 ml 03/17/22 17:00 03/17/22 23:42 Sodium Chloride Flush 0.9% 10 Ml Syringe IVP Not Given 0100,0900,1700 BRIGHT - Lab Result Fish Bone Diagrams: 03/18/22 05:34 03/18/22 05:34 - Additional Planning My Orders: My Active Orders 03/17/22 14:05 Activity Orders [RC] Q2HR IO [RC] IOSHIFT Initiate Bowel Care Protocol [RC] .protocol Initiate Line Care Protocol [RC] QSHIFT Initiate Personal Care Protoco [RC] .protocol Sodium Chloride Flush 0.9% [Normal Saline Flush 0.9%] 10 ml IVP PRN PRN Code Status [OTHERS] Routine Condition of Patient [OTHERS] Routine DVT Prophylaxis [OTHERS] Routine 03/17/22 14:11 Vital Signs [RC] Q4HR Acetaminophen [Tylenol] 650 mg PO Q4HR PRN Ondansetron Inj [Zofran Inj] 4 mg IVP Q6HR PRN 03/17/22 14:12 SCDs [RC] [facility] General Surgery Consult [CONS] Routine 03/17/22 14:13 Initiate Line Care Protocol [RC] QSNEFT 03/17/22 15:00 Sodium Chloride 0.9% [Normal Saline 0.9%] 1,000 ml IV 100 mls/hr 03/17/22 15:58 CULTURE, BLOOD (NOTE DRAW #) [] Stat 03/17/22 16:09 CIWA - AR Score Card [RC] Q4HR Nicotine 14 mg Patch [Nicoderm] 1 patch TOP DAILY PRN 03/17/22 17:00 Sodium Chloride Flush 0.9% [Normal Saline Flush 0.9%] 10 ml IVP 0100,0900,1700 03/17/22 18:10 HYDROmorphone 2MG VIAL [Dilaudid 2Mg Vial] 2 mg IVP Q2H PRN 03/17/22 21:00 OXcarbazepine [Trileptal] 900 mg PO BID 03/17/22 22:13 CUL,WOUND (AEROBIC) [] Urgent 03/18/22 07:56 LORazepam [Ativan] 1 mg PO Q1H PRN 03/18/22 09:00 amLODIPine [Norvasc] 5 mg PO DAILY lisinopriL [Zestril] 40 mg PO DAILY 03/18/22 10:00 Magnesium Sulfate 1 gm Sodium Chloride 0.9% [Normal Saline 0.9%] 50 ml IV ONCE Meropenem [Merrem] 1 gm Sodium Chloride 0.9% Minibag [Normal Saline 0.9% Minibag] 100 ml IV Q8H 03/19/22 05:00 BMP - BASIC METABOLIC PANEL [CHEM] DAILYLAB CBC - COMP BLD CT W/AUTO DIFF [HEME] DAILYLAB MAGNESIUM [CHEM] DAILYLAB 03/20/22 05:00 BMP - BASIC METABOLIC PANEL [CHEM] DAILYLAB CBC - COMP BLD CT W/AUTO DIFF [HEME] DAILYLAB MAGNESIUM [CHEM] DAILYLAB Subjective - Subjective Patient Reports: Resting Comfortably (He is sleeping and was not awakened) Objective Vital Signs: Vital Signs - 24 hr 03/17/22 03/17/22 03/17/22 16:19 22:13 22:20 Temperature 36.5 C 36.2 C L 36.7 C Heart Rate 93 94 Heart Rate [ 92 Brachial] Respiratory 18 11 L 10 L Rate Blood Pressure 158/98 H 156/97 H Blood Pressure 134/90 H [Right Brachial artery] O2 Saturation 94 94 96 03/17/22 03/17/22 03/17/22 22:28 22:38 22:47 Temperature 36.5 C 36.5 C 36.3 C L Heart Rate 99 93 Heart Rate [ 96 Brachial] Respiratory 13 12 12 Rate Blood Pressure 162/99 H 153/96 H Blood Pressure 151/95 H [Right Brachial artery] O2 Saturation 93 94 92 03/17/22 03/17/22 03/18/22 23:02 23:33 00:52 Temperature 36.5 C 36.6 C Heart Rate Heart Rate [ 99 100 Brachial] Respiratory 18 16 Rate Blood Pressure Blood Pressure 155/89 H 142/81 H [Right Brachial artery] O2 Saturation 93 92 94 03/18/22 03/18/22 03/18/22 01:40 05:38 06:30 Temperature 36.6 C 36.0 C L 36.5 C Heart Rate Heart Rate [ 96 99 Brachial] Respiratory 18 18 Rate Blood Pressure Blood Pressure 144/88 H 122/85 H [Right Brachial artery] O2 Saturation 94 93 03/18/22 07:19 Temperature 36.5 C Heart Rate Heart Rate [ 95 Brachial] Respiratory 18 Rate Blood Pressure Blood Pressure 132/89 H [Right Brachial artery] O2 Saturation 94 Oxygen O2 Source Nasal cannula I&O (Last 24 Hrs): Intake and Output Totals x24h 03/16/22 03/17/22 03/18/22 23:59 23:59 23:59 Intake Total 525.777 9388.667 Output Total 35 Balance 011.329 9993.667 General: No acute distress, Other (sleeping) HEENT: Other (Large bandage on lower madible and chin) Neck: Supple Neuro: Non Focal Cardiovascular: Regular rate Respiratory: No respiratory distress Abdomen: Soft Extremities: No edema - Results Results: Laboratory Results WBC 12.1 x10^3/uL (4.8-10.8) H 03/18/22 05:34 RBC 3.81 10^6/uL (4.70-6.10) L 03/18/22 05:34 Hgb 12.3 g/dL (14.0-18.0) L 03/18/22 05:34 Hct 38.0 % (42.0-52.0) L 03/18/22 05:34 MCV 99.7 fL (80.0-94.0) H 03/18/22 05:34 MCH 32.3 pg (27.0-31.0) H 03/18/22 05:34 MCHC 32.4 g/dL (32.0-36.0) 03/18/22 05:34 RDW 14.6 % (12.0-15.0) 03/18/22 05:34 Plt Count 254 10^3/uL (130-450) 03/18/22 05:34 MPV 9.8 fL (7.4-11.4) 03/18/22 05:34 Neut # (Auto) 10.8 10^3/uL (1.5-6.6) H 03/18/22 05:34 Lymph # (Auto) 0.8 10^3/uL (1.5-3.5) L 03/18/22 05:34 Granite # (Auto) 0.5 10^3/uL (0.0-1.0) 03/18/22 05:34 Eos # (Auto) 0.0 10^3/uL (0.0-0.7) 03/18/22 05:34 Baso # (Auto) 0.0 10^3/uL (0.0-0.1) 03/18/22 05:34 Absolute Nucleated RBC 0.00 x10^3/uL 03/18/22 05:34 Nucleated RBC % 0.0 /100WBC 03/18/22 05:34 PT 10.5 secs (9.9-12.6) 03/17/22 15:58 INR 0.9 (0.8-1.2) 03/17/22 15:58 Sodium 136 mmol/L (135-145) 03/18/22 05:34 Potassium 4.3 mmol/L (3.5-5.0) 03/18/22 05:34 Chloride 104 mmol/L (101-111) 03/18/22 05:34 Carbon Dioxide 24 mmol/L (21-32) 03/18/22 05:34 Anion Gap 8.0 (6-13) 03/18/22 05:34 BUN 15 mg/dL (6-20) 03/18/22 05:34 Creatinine 0.5 mg/dL (0.6-1.2) L 03/18/22 05:34 Estimated GFR (MDRD) 169 (>89) 03/18/22 05:34 Glucose 109 mg/dL (70-100) H 03/18/22 05:34 Calcium 9.1 mg/dL (8.5-10.3) 03/18/22 05:34 Phosphorus 4.3 mg/dL (2.5-4.6) 03/18/22 05:34 Magnesium 1.4 mg/dL (1.7-2.8) L 03/18/22 05:34 Total Bilirubin 0.4 mg/dL (0.2-1.0) 03/17/22 15:58 AST 96 IU/L (10-42) H 03/17/22 15:58 ALT 92 IU/L (10-60) H 03/17/22 15:58 Alkaline Phosphatase 95 IU/L (42-121) 03/17/22 15:58 Total Protein 7.4 g/dL (6.7-8.2) 03/17/22 15:58 Albumin 4.2 g/dL (3.2-5.5) 03/17/22 15:58 Globulin 3.2 g/dL (2.1-4.2) 03/17/22 15:58 Albumin/Globulin Ratio 1.3 (1.0-2.2) 03/17/22 15:58 SARS-CoV-2 (PCR) NOT DETECTED 03/17/22 16:00 - Procedures Procedures: Procedures INSERTION OF INFUSION DEV INTO SUP VENA CAVA, PERC APPROACH (12/12/21) REPAIR LOWER JAW, EXTERNAL APPROACH (12/12/21) REPLACEMENT OF LEFT MANDIBLE WITH SYNTH SUB, OPEN APPROACH (12/12/21) RESECTION OF LEFT MANDIBLE, OPEN APPROACH (12/12/21) RESECTION OF LOWER TOOTH, MULTIPLE, OPEN APPROACH (12/12/21)
[2022-03-18] MEDS: SODIUM CHLORIDE FLUSH 0.9% 10 ML SYRINGE IVP SCH ×3 (10:43→23:31)
[2022-03-18] MEDS: MEROPENEM 1 GM in SODIUM CHLORIDE 0.9% MINIBAG 100 ML IV SCH ×2 (10:48→17:53)
[2022-03-18] MEDS: THIAMINE 100 MG TABLET PO SCH (12:34)
[2022-03-19] MEDS: MEROPENEM 1 GM in SODIUM CHLORIDE 0.9% MINIBAG 100 ML IV SCH ×3 (02:01→17:53)
[2022-03-19] MEDS: IBUPROFEN 800 MG TABLET PO SCH ×3 (05:22→17:52)
[2022-03-19 06:05] LABS: BASOPHILS % (AUTO) 0.5 %; EOSINOPHILS # (AUTO) 0.2 10^3/uL (0.0-0.7); EOSINOPHILS % (AUTO) 2.2 %; HGB - HEMOGLOBIN 11.5 g/dL (14.0-18.0); LYMPHOCYTES # (AUTO) 2.1 10^3/uL (1.5-3.5); LYMPHOCYTES % (AUTO) 28.6 %; MEAN CORPUSCULAR HGB CONC 32.9 g/dL (32.0-36.0); MEAN CORPUSCULAR VOLUME 100.3 fL (80.0-94.0); MEAN PLATELET VOLUME 9.5 fL (7.4-11.4); MONOCYTES # (AUTO) 0.5 10^3/uL (0.0-1.0); MONOCYTES % (AUTO) 6.2 %; NEUTROPHILS # (AUTO) 4.6 10^3/uL (1.5-6.6); NEUTROPHILS % (AUTO) 61.8 %; PLT - PLATELET COUNT 180 10^3/uL (130-450); RED BLOOD COUNT 3.49 10^6/uL (4.70-6.10); RED CELL DISTRIBUTION WIDTH 14.4 % (12.0-15.0); WHITE BLOOD COUNT 7.4 x10^3/uL (4.8-10.8)
[2022-03-19] MEDS: ACETAMINOPHEN 325 MG TABLET PO PRN (06:09)
[2022-03-19 06:11] LABS: CALCIUM 9.3 mg/dL (8.5-10.3); CREATININE 0.5 mg/dL (0.6-1.2); MAGNESIUM 1.7 mg/dL (1.7-2.8); POTASSIUM 3.9 mmol/L (3.5-5.0)
[2022-03-19] MEDS: HYDROmorphone 2 MG/ML VIAL IVP PRN ×4 (08:00→19:43)
[2022-03-19] MEDS: CHLORHEXIDINE GLUCONATE 15 ML UDC PO SCH ×2 (08:37→21:08)
[2022-03-19] MEDS: OXcarbazepine 150 MG TABLET PO SCH ×2 (08:38→21:08)
[2022-03-19] MEDS: lisinopriL 20 MG TABLET PO SCH (08:39)
[2022-03-19] MEDS: THIAMINE 100 MG TABLET PO SCH (08:39)
[2022-03-19] MEDS: amLODIPine 5 MG TABLET PO SCH (08:39)
[2022-03-19] MEDS: SODIUM CHLORIDE FLUSH 0.9% 10 ML SYRINGE IVP SCH ×3 (08:40→21:13)
[2022-03-19] MEDS: SODIUM CHLORIDE 0.9% 1,000 ML IV SCH ×2 (09:15→19:43)
--- NOTE | 2022-03-19 09:32 | PROVIDER PROGRESS NOTE ---
Assessment/Plan - Problem List (1) Cutaneous abscess of face Assessment/Plan: 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 The patient went to the OR 2 days ago for debridement done [place]. Fan [place] [facility] [place] Wound specimen sent to the lab from [place], showed many WBC and the final result and sensitivities are still pending. The patient's ID specialist is Dr. Ronquillo, at [facility], gave me recommendations when he was admitted. The patient is to receive a PICC line on Mon (today is Sun) and he will need an 8-week course of IV antibiotics. She has set him up to receive Ertapenem Since we do not carry Ertepenam for inpatients, he was put on Meropenam iv here Today is POD #2. Pain meds ordered prn. He will be on a liquid diet for [address] Mita Fan also stated he needs lifelong Peridex b.i.d Dr Ronquillo stated he will be ordering lifelong antibx, possibly using Augmentin (see #2). (2) Penicillin allergy Conclusion/Plan: Dr. Ronquillo requested that we do an on Amoxicillin challenge while he is hos pitalized here, by giving a small dose of 250 mg of Amoxicillin and watch if he has an allergic reaction of any kind. We will treat hives or anaphylaxis as needed. If he has no significant allergic reaction then the treatment plan for lifelong suppressive antibiotic would be Augmentin, she said. This Amoxacillin challenge is planned for today. It was discussed with th patient and he said he already heard this once in the past from Dr Ronquillo. (3) Tobacco use Conclusion/Plan: Smoking cessation was recommended in Dr. Andrzej Fan' note. The patient was advi sed by me that he needs smoking cessation since this is harming his oral hygiene and lungs. Today we discussed that he could get a third infection and then hardware would need to be removed, he would have external wiring and screws, and would have a lifelong facial deformity, as per Dr Fan. A nicotine patch was ordered as needed here for nicotine cravings and he has not requested it. he said he has many patches at home and was once able to quit smoking in the past, using tapering doses of patches. Wellbutrin also offered and agrees to try this. Will order it to start while here. The RBA were discussed with pt. (4) Seizure disorder Conclusion/Plan: We are continuing his usual Trileptal antiseizure medication while here. (5) HTN (hypertension) Conclusion/Plan: We resumed his usual home medications of lisinopril and amlodipine, with parameters for holding them (6) Alcohol consumption binge drinking Conclusion/Plan: We ordered CIWA protocol and as needed Ativan for any withdrawal symptoms. Also ordered daily thiamine (7) Hypomagnesemia Assessment/Plan: Suspect this was from his poor p.o. intake, possibly related to this wound or his alcohol binging. We replaced with IV magnesium and corrected it - Current Meds Current Meds: Current Medications Generic Name Dose Route Start Last Admin Trade Name Freq PRN Reason Stop Dose Admin Acetaminophen 650 mg 03/17/22 14:11 03/19/22 06:09 Acetaminophen 325 Mg Tablet PO 650 mg Q4HR PRN Administration Pain 1 to 4, or Fever Amlodipine Besylate 5 mg 03/18/22 09:00 03/19/22 08:39 Amlodipine 5 Mg Tablet PO 5 mg DAILY BRIGHT Administration Chlorhexidine Gluconate 15 ml 03/18/22 09:00 03/19/22 08:37 Chlorhexidine Gluconate 15 Ml Udc PO 15 ml BID BRIGHT Administration Hydromorphone HCl 2 mg 03/17/22 18:10 03/19/22 08:00 Hydromorphone 2 Mg/Ml Vial IVP 2 mg Q2H PRN Administration Severe Pain Sodium Chloride 1,000 mls @ 100 mls/hr 03/17/22 15:00 03/19/22 09:15 Normal Saline 0.9% IV 100 mls/hr .Q10H BRIGHT Administration Meropenem 1 gm/ Sodium 100 mls @ 200 mls/hr 03/18/22 10:00 03/19/22 02:40 Chloride IV Infused Q8H BRIGHT Infusion Ibuprofen 800 mg 03/18/22 00:00 03/19/22 05:22 Ibuprofen 800 Mg Tablet PO 800 mg Q6H BRIGHT Administration Lisinopril 40 mg 03/18/22 09:00 03/19/22 08:39 Lisinopril 20 Mg Tablet PO 40 mg DAILY BRIGHT Administration Oxcarbazepine 900 mg 03/17/22 21:00 03/19/22 08:38 Oxcarbazepine 150 Mg Tablet PO 900 mg BID BRIGHT Administration Sodium Chloride 10 ml 03/17/22 17:00 03/19/22 08:40 Sodium Chloride Flush 0.9% 10 Ml Syringe IVP Not Given 0100,0900,1700 BRIGHT Thiamine HCl 100 mg 03/18/22 11:30 03/19/22 08:39 Thiamine 100 Mg Tablet PO 100 mg DAILY BRIGHT Administration - Lab Result Fish Bone Diagrams: 03/19/22 05:54 03/19/22 05:54 - Additional Planning My Orders: My Active Orders 03/18/22 09:00 amLODIPine [Norvasc] 5 mg PO DAILY lisinopriL [Zestril] 40 mg PO DAILY 03/18/22 10:00 Meropenem [Merrem] 1 gm Sodium Chloride 0.9% Minibag [Normal Saline 0.9% Minibag] 100 ml IV Q8H 03/18/22 11:30 Thiamine [Vitamin B-1] 100 mg PO DAILY 03/20/22 05:00 BMP - BASIC METABOLIC PANEL [CHEM] DAILYLAB CBC - COMP BLD CT W/AUTO DIFF [HEME] DAILYLAB MAGNESIUM [CHEM] DAILYLAB Subjective - Subjective Patient Reports: Pain (Chin pain is 9/10, stabbing) Objective Vital Signs: Vital Signs - 24 hr 03/18/22 03/18/22 03/18/22 11:29 16:37 20:34 Temperature 36.4 C L 36.6 C 36.5 C Heart Rate [ 84 87 81 Brachial] Respiratory 18 16 16 Rate Blood Pressure 113/76 131/75 H 125/84 H [Right Brachial artery] O2 Saturation 92 93 92 03/18/22 03/19/22 03/19/22 23:33 04:23 07:34 Temperature 36.6 C 36.7 C 36.4 C L Heart Rate [ 84 84 78 Brachial] Respiratory 16 16 18 Rate Blood Pressure 153/90 H 149/89 H 146/83 H [Right Brachial artery] O2 Saturation 93 96 94 Oxygen O2 Source Room air I&O (Last 24 Hrs): Intake and Output Totals x24h 03/17/22 03/18/22 03/19/22 23:59 23:59 23:59 Intake Total 627.436 5003.667 1580 Output Total 35 Balance 938.423 5658.667 1580 General: Alert, Oriented x3 HEENT: Mucous membr. moist/pink, Other (L posterior jaw has new large swollen area, is tender, not red. Chin has bandage dry and intact.) Neck: Supple, No JVD Neuro: Alert, Non Focal Cardiovascular: Regular rate, No murmurs Respiratory: No respiratory distress, Breath sounds nml Abdomen: Normal bowel sounds, Soft Extremities: No clubbing, No edema - Results Results: Laboratory Results WBC 7.4 x10^3/uL (4.8-10.8) 03/19/22 05:54 RBC 3.49 10^6/uL (4.70-6.10) L 03/19/22 05:54 Hgb 11.5 g/dL (14.0-18.0) L 03/19/22 05:54 Hct 35.0 % (42.0-52.0) L 03/19/22 05:54 MCV 100.3 fL (80.0-94.0) H 03/19/22 05:54 MCH 33.0 pg (27.0-31.0) H 03/19/22 05:54 MCHC 32.9 g/dL (32.0-36.0) 03/19/22 05:54 RDW 14.4 % (12.0-15.0) 03/19/22 05:54 Plt Count 180 10^3/uL (130-450) 03/19/22 05:54 MPV 9.5 fL (7.4-11.4) 03/19/22 05:54 Neut # (Auto) 4.6 10^3/uL (1.5-6.6) 03/19/22 05:54 Lymph # (Auto) 2.1 10^3/uL (1.5-3.5) 03/19/22 05:54 Pettis # (Auto) 0.5 10^3/uL (0.0-1.0) 03/19/22 05:54 Eos # (Auto) 0.2 10^3/uL (0.0-0.7) 03/19/22 05:54 Baso # (Auto) 0.0 10^3/uL (0.0-0.1) 03/19/22 05:54 Absolute Nucleated RBC 0.00 x10^3/uL 03/19/22 05:54 Nucleated RBC % 0.0 /100WBC 03/19/22 05:54 PT 10.5 secs (9.9-12.6) 03/17/22 15:58 INR 0.9 (0.8-1.2) 03/17/22 15:58 Sodium 136 mmol/L (135-145) 03/19/22 05:54 Potassium 3.9 mmol/L (3.5-5.0) 03/19/22 05:54 Chloride 105 mmol/L (101-111) 03/19/22 05:54 Carbon Dioxide 24 mmol/L (21-32) 03/19/22 05:54 Anion Gap 7.0 (6-13) 03/19/22 05:54 BUN 8 mg/dL (6-20) 03/19/22 05:54 Creatinine 0.5 mg/dL (0.6-1.2) L 03/19/22 05:54 Estimated GFR (MDRD) 169 (>89) 03/19/22 05:54 Glucose 94 mg/dL (70-100) 03/19/22 05:54 Calcium 9.3 mg/dL (8.5-10.3) 03/19/22 05:54 Phosphorus 4.3 mg/dL (2.5-4.6) 03/18/22 05:34 Magnesium 1.7 mg/dL (1.7-2.8) 03/19/22 05:54 Total Bilirubin 0.4 mg/dL (0.2-1.0) 03/17/22 15:58 AST 96 IU/L (10-42) H 03/17/22 15:58 ALT 92 IU/L (10-60) H 03/17/22 15:58 Alkaline Phosphatase 95 IU/L (42-121) 03/17/22 15:58 Total Protein 7.4 g/dL (6.7-8.2) 03/17/22 15:58 Albumin 4.2 g/dL (3.2-5.5) 03/17/22 15:58 Globulin 3.2 g/dL (2.1-4.2) 03/17/22 15:58 Albumin/Globulin Ratio 1.3 (1.0-2.2) 03/17/22 15:58 SARS-CoV-2 (PCR) NOT DETECTED 03/17/22 16:00 - Procedures Procedures: Procedures INSERTION OF INFUSION DEV INTO SUP VENA CAVA, PERC APPROACH (12/12/21) REPAIR LOWER JAW, EXTERNAL APPROACH (12/12/21) REPLACEMENT OF LEFT MANDIBLE WITH SYNTH SUB, OPEN APPROACH (12/12/21) RESECTION OF LEFT MANDIBLE, OPEN APPROACH (12/12/21) RESECTION OF LOWER TOOTH, MULTIPLE, OPEN APPROACH (12/12/21)
--- NOTE | 2022-03-19 09:34 | PROVIDER PROGRESS NOTE ---
Subjective - General Admit Date: 03/17/22 Procedure Date: 03/17/22 Post Op Days: 2 Procedure Performed: Debridement of left mandible and mandibular hardware - Review of Systems Wound/Incisions: positive: Other (Drain came out yesterday 0800. Total output 35 mL. Having significant postoperative pain. Denies fever, chills, cp, n/v. Ambulating and voiding without difficulty.) All Other Systems: positive: Reviewed and negative Objective - Patient Data Vital Signs: Vital Signs x48h Temp Pulse Resp BP Pulse Ox 03/19/22 07:34 36.4 C L 78 18 146/83 H 94 03/19/22 04:23 36.7 C 84 16 149/89 H 96 Weight: Weight 03/17/22 03/18/22 03/19/22 23:59 23:59 23:59 Weight (kg) 78.5 kg Intake & Output: Intake and Output Totals x24h 03/17/22 03/18/22 03/19/22 23:59 23:59 23:59 Intake Total 543.566 0266.667 1580 Output Total 35 Balance 174.866 2563.667 1580 - Lab Results Lab Results: 03/19/22 05:54 03/19/22 05:54 Other Lab Results: Lab Results x24hrs 03/19/22 03/19/22 Range/Units 05:54 05:54 WBC 7.4 (4.8-10.8) x10^3/uL RBC 3.49 L (4.70-6.10) 10^6/uL Hgb 11.5 L (14.0-18.0) g/dL Hct 35.0 L (42.0-52.0) % MCV 100.3 H (80.0-94.0) fL MCH 33.0 H (27.0-31.0) pg MCHC 32.9 (32.0-36.0) g/dL RDW 14.4 (12.0-15.0) % Plt Count 180 (130-450) 10^3/uL MPV 9.5 (7.4-11.4) fL Neut # (Auto) 4.6 (1.5-6.6) 10^3/uL Lymph # (Auto) 2.1 (1.5-3.5) 10^3/uL [place] # (Auto) 0.5 (0.0-1.0) 10^3/uL Eos # (Auto) 0.2 (0.0-0.7) 10^3/uL Baso # (Auto) 0.0 (0.0-0.1) 10^3/uL Absolute Nucleated RBC 0.00 x10^3/uL Nucleated RBC % 0.0 /100WBC Sodium 136 (135-145) mmol/L Potassium 3.9 (3.5-5.0) mmol/L Chloride 105 (101-111) mmol/L Carbon Dioxide 24 (21-32) mmol/L Anion Gap 7.0 (6-13) BUN 8 (6-20) mg/dL Creatinine 0.5 L (0.6-1.2) mg/dL Estimated GFR (MDRD) 169 (>89) Glucose 94 (70-100) mg/dL Calcium 9.3 (8.5-10.3) mg/dL Magnesium 1.7 (1.7-2.8) mg/dL - Current Medications Current Medications: Current Medications Generic Name Dose Route Start Last Admin Trade Name Freq PRN Reason Stop Dose Admin Acetaminophen 650 mg 03/17/22 14:11 03/19/22 06:09 Acetaminophen 325 Mg Tablet PO 650 mg Q4HR PRN Administration Pain 1 to 4, or Fever Amlodipine Besylate 5 mg 03/18/22 09:00 03/19/22 08:39 Amlodipine 5 Mg Tablet PO 5 mg DAILY BRIGHT Administration Chlorhexidine Gluconate 15 ml 03/18/22 09:00 03/19/22 08:37 Chlorhexidine Gluconate 15 Ml Udc PO 15 ml BID BRIGHT Administration Hydromorphone HCl 2 mg 03/17/22 18:10 03/19/22 08:00 Hydromorphone 2 Mg/Ml Vial IVP 2 mg Q2H PRN Administration Severe Pain Sodium Chloride 1,000 mls @ 100 mls/hr 03/17/22 15:00 03/19/22 09:15 Normal Saline 0.9% IV 100 mls/hr .Q10H BRIGHT Administration Meropenem 1 gm/ Sodium 100 mls @ 200 mls/hr 03/18/22 10:00 03/19/22 02:40 Chloride IV Infused Q8H BRIGHT Infusion Ibuprofen 800 mg 03/18/22 00:00 03/19/22 05:22 Ibuprofen 800 Mg Tablet PO 800 mg Q6H BRIGHT Administration Lisinopril 40 mg 03/18/22 09:00 03/19/22 08:39 Lisinopril 20 Mg Tablet PO 40 mg DAILY BRIGHT Administration Oxcarbazepine 900 mg 03/17/22 21:00 03/19/22 08:38 Oxcarbazepine 150 Mg Tablet PO 900 mg BID BRIGHT Administration Sodium Chloride 10 ml 03/17/22 17:00 03/19/22 08:40 Sodium Chloride Flush 0.9% 10 Ml Syringe IVP Not Given 0100,0900,1700 BRIGHT Thiamine HCl 100 mg 03/18/22 11:30 03/19/22 08:39 Thiamine 100 Mg Tablet PO 100 mg DAILY BRIGHT Administration - Physical Exam Wound/Incisions: positive: Other (Dressing intact, no strikethrough. Tissues pink and healthy. Moderate postoperative edma.) General Appearance: positive: No acute distress, Alert Eyes Bilateral: positive: Normal inspection, EOMI (SOM wnl. Sutures intact. Wound intact. No drainage. FOM moderately edematous with mild ecchymosis. No numbness of the tongue. Complete anesthesia of the L V3. Occlusion stable. Tissues pink and healthy.) ENT: positive: Other Impression/Plan - Problem List Problem List: 61 yo M 2 days s/p washout of the L mandible and mandibular hardware with excision of osseocutaneous and osseomucosal fistulas and closure of the resultant wounds - Healing well - Drain out after 35 mL P: - continue IV abx - PICC tomorrow - senior living ertapenem. Dr. Mccabe, infectious disease is following him and is managing his outpatient abx - Needs a trial of amoxicillin during this admission - Full liquid diet x 6 weeks - No smoking - Chlorhexidine mouthrinse BID during this admission and afterwards inde finitely Appreciate IM assistance Please call with any questions Andrzej Fan DDS [phone]
[2022-03-19] MEDS ORDERED: diphenhydrAMINE INJ 50 MG/ML VIAL IVP PRN (13:00)
[2022-03-19] MEDS ORDERED: EPINEPHrine 1 MG/ML VIAL IM PRN (13:00)
[2022-03-19] MEDS ORDERED: AMOXICILLIN 250 MG CAPSULE PO ONE (13:00)
[2022-03-19] MEDS: buPROPion SR 150 MG TABLET PO SCH (17:02)
[2022-03-20] MEDS: HYDROmorphone 2 MG/ML VIAL IVP PRN ×7 (00:16→23:57)
[2022-03-20] MEDS: IBUPROFEN 800 MG TABLET PO SCH ×5 (00:16→23:55)
[2022-03-20] MEDS: SODIUM CHLORIDE FLUSH 0.9% 10 ML SYRINGE IVP SCH ×3 (00:16→06:32)
[2022-03-20] MEDS: MEROPENEM 1 GM in SODIUM CHLORIDE 0.9% MINIBAG 100 ML IV SCH ×3 (01:49→18:59)
[2022-03-20 06:20] LABS: BASOPHILS # (AUTO) 0.1 10^3/uL (0.0-0.1); EOSINOPHILS # (AUTO) 0.2 10^3/uL (0.0-0.7); EOSINOPHILS % (AUTO) 3.6 %; HCT - HEMATOCRIT 34.3 % (42.0-52.0); HGB - HEMOGLOBIN 11.4 g/dL (14.0-18.0); LYMPHOCYTES # (AUTO) 1.8 10^3/uL (1.5-3.5); LYMPHOCYTES % (AUTO) 36.8 %; MEAN CORPUSCULAR HEMOGLOBIN 33.4 pg (27.0-31.0); MEAN CORPUSCULAR HGB CONC 33.2 g/dL (32.0-36.0); MEAN CORPUSCULAR VOLUME 100.6 fL (80.0-94.0); MEAN PLATELET VOLUME 9.8 fL (7.4-11.4); MONOCYTES # (AUTO) 0.4 10^3/uL (0.0-1.0); MONOCYTES % (AUTO) 7.5 %; NEUTROPHILS # (AUTO) 2.5 10^3/uL (1.5-6.6); NEUTROPHILS % (AUTO) 50.9 %; PLT - PLATELET COUNT 188 10^3/uL (130-450); RED BLOOD COUNT 3.41 10^6/uL (4.70-6.10)
[2022-03-20] MEDS: SODIUM CHLORIDE 0.9% 1,000 ML IV SCH ×2 (06:31→21:29)
[2022-03-20 06:33] LABS: CALCIUM 8.9 mg/dL (8.5-10.3); CREATININE 0.5 mg/dL (0.6-1.2); MAGNESIUM 1.5 mg/dL (1.7-2.8); POTASSIUM 3.9 mmol/L (3.5-5.0)
[2022-03-20] MEDS: OXcarbazepine 150 MG TABLET PO SCH ×2 (08:31→21:29)
[2022-03-20] MEDS: amLODIPine 5 MG TABLET PO SCH (08:32)
[2022-03-20] MEDS: CHLORHEXIDINE GLUCONATE 15 ML UDC PO SCH ×2 (08:32→21:28)
[2022-03-20] MEDS: lisinopriL 20 MG TABLET PO SCH (08:32)
[2022-03-20] MEDS: THIAMINE 100 MG TABLET PO SCH (08:32)
[2022-03-20 09:12] LABS: ALBUMIN 3.6 g/dL (3.2-5.5); BILIRUBIN,DIRECT 0.1 mg/dL (0.1-0.5); BILIRUBIN,TOTAL 0.4 mg/dL (0.2-1.0); TOTAL PROTEIN 6.5 g/dL (6.7-8.2)
--- NOTE | 2022-03-20 11:49 | ANESTHESIA PROCEDURE NOTE ---
Anesth Central Line Template - Central Line Central Line Preparation: Consent Obtained, Time out completed, Ultrasound used, Sterile prep and drape Central line location: Left Basilic Central line type: PICC Double Lumen Central line catheter tip site resides: Superior vena cava (SVC) Central line aftercare: Secured, Placement confirmed, No complications, Pt tolerated well Other Info/Details: Attempted right arm placement without success. Unable to advance catheter beyond patient's shoulder despite multiple position changes. Patient's left arm was prepped and draped. Full sterile gown, gloves, drapes, mask utilized. The Left basilic vein was identified under ultrasound and needle was visualized for access. Sheath inserted and a 5Fr double lumen PICC was trimmed to 44cm. PICC advanced with ease and tip tracker showed it directed towards the heart. ECG analysis was used for confirmation of placement. 0cm of catheter was left exposed. Line secured and both ports aspirate blood and flush with ease. Patient tolerated well. Ok to use PICC.
[2022-03-20] MEDS: MAGNESIUM OXIDE 400 MG TABLET PO SCH (12:51)
[2022-03-20] MEDS: ACETAMINOPHEN 325 MG TABLET PO PRN (12:52)
[2022-03-20] MEDS ORDERED: VANCOMYCIN INJ 1 GM, VANCOMYCIN INJ 500 MG in SODIUM CHLORIDE 0.9% 500 ML IV ONE (14:30)
--- NOTE | 2022-03-20 14:47 | PROVIDER PROGRESS NOTE ---
Assessment/Plan - Problem List (1) Cutaneous abscess of face Assessment/Plan: 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 The patient went to the OR 3 days ago for debridement done [place]. Fan [place] [facility] [place] patient's ID specialist is Dr. Ronquillo, at [facility], called me and gave me recommendations when he was admitted: The patient is to receive a PICC line today and he will need an 8-week course of IV antibiotics. Dr Ronquillo has set him up to receive Ertapenem at [facility]. Since we do not carry Ertepenam for inpatients, he was put on Meropenam iv while here as an Inpt. Today is POD #3. Pain meds ordered prn. He will be on a liquid diet for [address] Mita Fan also stated he needs lifelong Peridex b.i.d Dr Ronquillo stated she will be ordering lifelong antibx, and consideration was for using Augmentin (see #3). (2) Gram neg bacterial cellulitis Conclusion/Plan: Wound specimen was sent to the lab from [place], and prelim result showed many WBC and no organisms. No other cx information was available this morning, therefore I spoke to the Tech in Microbiology Lab today. There are 2 organisms growing, 1 is a coag- negative Staph and the other is a gram-negative bacteria. We will give iv Vancomycin empirically starting today, in case this staph is MRSA. Will await for bacterial identification and sensitivities, which the Microbiology Tech said would be available about noon tomorrow (03/21/2022), before we discharge him. I explained this to the patient and his significant other was in the room. They understand and agree with the plan. (3) Penicillin allergy Conclusion/Plan: Dr. Ronquillo requested that we do an on Amoxicillin challenge while he is hospitalized here, by giving a small dose of 250 mg of Amoxicillin and watch if he has an allergic reaction of any kind. We will treat hives or anaphylaxis as needed. If he has no significant allergic reaction then the treatment plan for lifelong suppressive antibiotic would be Augmentin, she said. The Amoxacillin challenge was done yesterday. It was discussed with the patient and he said he a lready heard this once in the past from Dr Ronquillo. Patient received Amoxicillin 250 mg po at 1300. He had no side effects, stable vital signs, no wheezing until 1530 when he started to have itching of his skin on his arms, upper back and face. By 1700 his itching was of his whole face, inside his ears and he noticed hives of his arms. He called his nurse. The RN confirmed and called me in. I evaluated him. He did have hives of his upper extremities and redness of his whole face. There was no wheezing. His vital signs were stable. He got IV Benadryl 25 mg x1. An EpiPen was also ordered prn. Therefore, a Penicillin allergy is indeed present and his reaction is hives. (4) Tobacco use Conclusion/Plan: Smoking cessation was recommended in Dr. Andrzej Fan' note. The patient was advised by me that he needs smoking cessation since this is harming his oral hygiene and lungs. Today we discussed that he could get a third infection and then hardware would need to be removed, he would have external wiring and screws, and would have a lifelong facial deformity, as per Dr Fan. A nicotine patch was ordered here prn for nicotine cravings and he has not requested it. He said he has many patches at home and was once able to quit smoking in the past, using tapering doses of patches. Wellbutrin also offered and agreed to try this. We ordered it to start while here. The RBA of Wellbutrin were discussed with pt. (5) Seizure disorder Conclusion/Plan: We are continuing his usual Trileptal antiseizure medication while here. (6) HTN (hypertension) Conclusion/Plan: We resumed his usual home medications of lisinopril and amlodipine, with parameters for holding them (7) Alcohol consumption binge drinking Conclusion/Plan: We ordered CIWA protocol and as needed Ativan for any withdrawal symptoms. He has had no withdrawal sx, so will stop the CIWA checks Also ordered daily thiamine po (8) Hypomagnesemia Assessment/Plan: Suspect this is from his poor diet, possibly related to this mouth/facial wound or due to his alcohol binging. Replacement magnesium ordered. - Current Meds Current Meds: Current Medications Generic Name Dose Route Start Last Admin Trade Name Freq PRN Reason Stop Dose Admin Acetaminophen 650 mg 03/17/22 14:11 03/20/22 12:52 Acetaminophen 325 Mg Tablet PO 650 mg Q4HR PRN Administration Pain 1 to 4, or Fever Amlodipine Besylate 5 mg 03/18/22 09:00 03/20/22 08:32 Amlodipine 5 Mg Tablet PO 5 mg DAILY BRIGHT Administration Bupropion HCl 150 mg 03/19/22 17:00 03/19/22 17:02 Bupropion Sr 150 Mg Tablet PO 150 mg DAILY@1700 BRIGHT Administration Chlorhexidine Gluconate 15 ml 03/18/22 09:00 03/20/22 08:32 Chlorhexidine Gluconate 15 Ml Udc PO 15 ml BID BRIGHT Administration Hydromorphone HCl 2 mg 03/17/22 18:10 03/20/22 10:47 Hydromorphone 2 Mg/Ml Vial IVP 2 mg Q2H PRN Administration Severe Pain Sodium Chloride 1,000 mls @ 100 mls/hr 03/17/22 15:00 03/20/22 06:31 Normal Saline 0.9% IV 100 mls/hr .Q10H BRIGHT Administration Meropenem 1 gm/ Sodium 100 mls @ 200 mls/hr 03/18/22 10:00 03/20/22 11:50 Chloride IV Infused Q8H BRIGHT Infusion Ibuprofen 800 mg 03/18/22 00:00 03/20/22 13:29 Ibuprofen 800 Mg Tablet PO Not Given Q6H BRIGHT Lisinopril 40 mg 03/18/22 09:00 03/20/22 08:32 Lisinopril 20 Mg Tablet PO 40 mg DAILY BRIGHT Administration Magnesium Oxide 400 mg 03/20/22 09:00 03/20/22 12:51 Magnesium Oxide 400 Mg Tablet PO 400 mg DAILYWM BRIGHT Administration Oxcarbazepine 900 mg 03/17/22 21:00 03/20/22 08:31 Oxcarbazepine 150 Mg Tablet PO 900 mg BID BRIGHT Administration Sodium Chloride 10 ml 03/17/22 17:00 03/20/22 06:32 Sodium Chloride Flush 0.9% 10 Ml Syringe IVP 10 ml 0100,0900,1700 BRIGHT Administration Thiamine HCl 100 mg 03/18/22 11:30 03/20/22 08:32 Thiamine 100 Mg Tablet PO 100 mg DAILY BRIGHT Administration - Lab Result Fish Bone Diagrams: 03/20/22 05:59 03/20/22 05:59 - Additional Planning My Orders: My Active Orders 03/19/22 17:00 buPROPion [Wellbutrin Sr] 150 mg PO DAILY@1700 03/20/22 08:13 PICC Line Care [RC] Q4H PICC Line Insert [RC] .ONCE 03/20/22 09:00 Magnesium Oxide [Mag Ox] 400 mg PO DAILYWM 03/20/22 14:30 Vancomycin Inj [Vancomycin] 1 gm Vancomycin Inj [Vancomycin Hcl] 500 mg Sodium Chloride 0.9% [Normal Saline 0.9%] 500 ml IV ONCE 03/20/22 23:00 Vancomycin Inj [Vancomycin] 1 gm Sodium Chloride 0.9% [Normal Saline 0.9%] 250 ml IV TID@0700,1500,2300 03/21/22 13:00 VANCOMYCIN TROUGH [CHEM] Timed Subjective - Subjective Patient Reports: Pain (Still has pain in the left posterior lower jaw which is still swollen. He is tolerating his pured diet) Objective Vital Signs: Vital Signs - 24 hr 03/19/22 03/19/22 03/20/22 16:16 20:24 00:19 Temperature 36.7 C 36.6 C 36.6 C Heart Rate [ 78 89 81 Brachial] Respiratory 16 17 18 Rate Blood Pressure 158/86 H 130/76 148/83 H [Right Brachial artery] O2 Saturation 94 93 95 03/20/22 03/20/22 03/20/22 04:56 07:46 12:37 Temperature 36.8 C 36.6 C 36.6 C Heart Rate [ 80 89 89 Brachial] Respiratory 18 18 18 Rate Blood Pressure 143/86 H 149/90 H 145/81 H [Right Brachial artery] O2 Saturation 94 92 94 Oxygen O2 Source Room air I&O (Last 24 Hrs): Intake and Output Totals x24h 03/18/22 03/19/22 03/20/22 23:59 23:59 23:59 Intake Total 4353.667 4460 4220 Output Total 35 Balance 4318.667 4460 4220 General: Alert, Oriented x3, No acute distress HEENT: Mucous membr. moist/pink, Other (Chin bandaged, swollen posterior L lower jaw, with tenderness) Neck: Supple, No JVD Neuro: Alert, Non Focal Cardiovascular: Regular rate, No murmurs Respiratory: No respiratory distress, Breath sounds nml Abdomen: Normal bowel sounds, Soft Extremities: No clubbing, No edema - Results Results: Laboratory Results WBC 5.0 x10^3/uL (4.8-10.8) 03/20/22 05:59 RBC 3.41 10^6/uL (4.70-6.10) L 03/20/22 05:59 Hgb 11.4 g/dL (14.0-18.0) L 03/20/22 05:59 Hct 34.3 % (42.0-52.0) L 03/20/22 05:59 MCV 100.6 fL (80.0-94.0) H 03/20/22 05:59 MCH 33.4 pg (27.0-31.0) H 03/20/22 05:59 MCHC 33.2 g/dL (32.0-36.0) 03/20/22 05:59 RDW 14.0 % (12.0-15.0) 03/20/22 05:59 Plt Count 188 10^3/uL (130-450) 03/20/22 05:59 MPV 9.8 fL (7.4-11.4) 03/20/22 05:59 Neut # (Auto) 2.5 10^3/uL (1.5-6.6) 03/20/22 05:59 Lymph # (Auto) 1.8 10^3/uL (1.5-3.5) 03/20/22 05:59 [place] # (Auto) 0.4 10^3/uL (0.0-1.0) 03/20/22 05:59 Eos # (Auto) 0.2 10^3/uL (0.0-0.7) 03/20/22 05:59 Baso # (Auto) 0.1 10^3/uL (0.0-0.1) 03/20/22 05:59 Absolute Nucleated RBC 0.00 x10^3/uL 03/20/22 05:59 Nucleated RBC % 0.0 /100WBC 03/20/22 05:59 PT 10.5 secs (9.9-12.6) 03/17/22 15:58 INR 0.9 (0.8-1.2) 03/17/22 15:58 Sodium 138 mmol/L (135-145) 03/20/22 05:59 Potassium 3.9 mmol/L (3.5-5.0) 03/20/22 05:59 Chloride 106 mmol/L (101-111) 03/20/22 05:59 Carbon Dioxide 25 mmol/L (21-32) 03/20/22 05:59 Anion Gap 7.0 (6-13) 03/20/22 05:59 BUN 6 mg/dL (6-20) 03/20/22 05:59 Creatinine 0.5 mg/dL (0.6-1.2) L 03/20/22 05:59 Estimated GFR (MDRD) 169 (>89) 03/20/22 05:59 Glucose 95 mg/dL (70-100) 03/20/22 05:59 Calcium 8.9 mg/dL (8.5-10.3) 03/20/22 05:59 Phosphorus 4.3 mg/dL (2.5-4.6) 03/18/22 05:34 Magnesium 1.5 mg/dL (1.7-2.8) L 03/20/22 05:59 Total Bilirubin 0.4 mg/dL (0.2-1.0) 03/20/22 05:59 Direct Bilirubin 0.1 mg/dL (0.1-0.5) 03/20/22 05:59 AST 21 IU/L (10-42) 03/20/22 05:59 ALT 39 IU/L (10-60) 03/20/22 05:59 Alkaline Phosphatase 74 IU/L (42-121) 03/20/22 05:59 Total Protein 6.5 g/dL (6.7-8.2) L 03/20/22 05:59 Albumin 3.6 g/dL (3.2-5.5) 03/20/22 05:59 Globulin 2.9 g/dL (2.1-4.2) 03/20/22 05:59 Albumin/Globulin Ratio 1.3 (1.0-2.2) 03/17/22 15:58 SARS-CoV-2 (PCR) NOT DETECTED 03/17/22 16:00 - Procedures Procedures: Procedures INSERTION OF INFUSION DEV INTO SUP VENA CAVA, PERC APPROACH (12/12/21) REPAIR LOWER JAW, EXTERNAL APPROACH (12/12/21) REPLACEMENT OF LEFT MANDIBLE WITH SYNTH SUB, OPEN APPROACH (12/12/21) RESECTION OF LEFT MANDIBLE, OPEN APPROACH (12/12/21) RESECTION OF LOWER TOOTH, MULTIPLE, OPEN APPROACH (12/12/21)
[2022-03-20] MEDS: buPROPion SR 150 MG TABLET PO SCH (17:15)
[2022-03-20] MEDS: VANCOMYCIN INJ 1 GM in SODIUM CHLORIDE 0.9% 250 ML IV SCH (22:59)
[2022-03-21] MEDS: MEROPENEM 1 GM in SODIUM CHLORIDE 0.9% MINIBAG 100 ML IV SCH ×3 (01:56→17:46)
[2022-03-21] MEDS: HYDROmorphone 2 MG/ML VIAL IVP PRN ×3 (02:39→08:51)
[2022-03-21] MEDS: IBUPROFEN 800 MG TABLET PO SCH ×3 (06:24→17:46)
[2022-03-21] MEDS: VANCOMYCIN INJ 1 GM in SODIUM CHLORIDE 0.9% 250 ML IV SCH ×3 (06:24→22:32)
[2022-03-21] MEDS ORDERED: BACITRACIN ZINC OINT 1 PACKET TOP PRN (08:42)
[2022-03-21] MEDS: CHLORHEXIDINE GLUCONATE 15 ML UDC PO SCH ×2 (08:50→20:35)
[2022-03-21] MEDS: OXcarbazepine 150 MG TABLET PO SCH ×2 (08:50→20:34)
[2022-03-21] MEDS: MAGNESIUM OXIDE 400 MG TABLET PO SCH (08:50)
[2022-03-21] MEDS: amLODIPine 5 MG TABLET PO SCH (08:50)
[2022-03-21] MEDS: THIAMINE 100 MG TABLET PO SCH (08:51)
[2022-03-21] MEDS: lisinopriL 20 MG TABLET PO SCH (08:51)
[2022-03-21] MEDS: SODIUM CHLORIDE FLUSH 0.9% 10 ML SYRINGE IVP SCH ×2 (08:51→16:21)
[2022-03-21] MEDS: ACETAMINOPHEN 325 MG TABLET PO PRN ×2 (08:51→16:20)
[2022-03-21] MEDS: SODIUM CHLORIDE 0.9% 1,000 ML IV SCH ×3 (10:59→22:32)
[2022-03-21] MEDS: MAG HYDROX/AL HYDROX/SIMETH 30 ML UDC PO PRN ×2 (11:15→16:20)
[2022-03-21] MEDS: oxyCODONE 5 MG TABLET PO PRN ×3 (12:05→20:34)
[2022-03-21 13:10] LABS: VANCOMYCIN,TROUGH 15.7 ug/mL (10.0-20.0)
[2022-03-21] MEDS: buPROPion SR 150 MG TABLET PO SCH (16:20)
--- NOTE | 2022-03-21 16:36 | PROVIDER PROGRESS NOTE ---
Subjective - Prog Note Date Prog Note Date: 03/21/22 Prog Note Time: 16:36 - Subjective Subjective: He was reporting a 10 out of 10 pain to the nurses and assess that gave him his Dilaudid IV this morning. I saw the patient about half an hour later and his speech was slurred, psychomotor slowing, barely able to hold open his eyes. No respiratory distress. Respiratory rate was normal and oxygenation was normal. He was barely able to complete full sentences with me and asked me to stay because "I am really lonely". Current Medications - Current Medications Current Medications: Active Medications Acetaminophen (Acetaminophen 325 Mg Tablet) 650 mg PO Q4HR PRN PRN Reason: Pain 1 to 4, or Fever Last Admin: 03/21/22 16:20 Dose: 650 mg Al Hydroxide/Mg Hydroxide (Mag Hydrox/Al Hydrox/Simeth 30 Ml Udc) 30 ml PO Q4HR PRN PRN Reason: INDIGESTION Last Admin: 03/21/22 16:20 Dose: 30 ml Amlodipine Besylate (Amlodipine 5 Mg Tablet) 5 mg PO DAILY [facility] Last Admin: 03/21/22 08:50 Dose: 5 mg Bacitracin (Bacitracin Zinc Oint 1 Packet) 1 packet TOP PRN PRN PRN Reason: Skin Care Bupropion HCl (Bupropion Sr 150 Mg Tablet) 150 mg PO DAILY@1700 [facility] Last Admin: 03/21/22 16:20 Dose: 150 mg Chlorhexidine Gluconate (Chlorhexidine Gluconate 15 Ml Udc) 15 ml PO BID [facility] Last Admin: 03/21/22 08:50 Dose: 15 ml Sodium Chloride (Normal Saline 0.9%) 1,000 mls @ 100 mls/hr IV .Q10H [facility] Last Admin: 03/21/22 12:03 Dose: Not Given Meropenem 1 gm/ Sodium (Chloride) 100 mls @ 200 mls/hr IV Q8H [facility] Last Infusion: 03/21/22 10:22 Dose: Infused Vancomycin HCl 1 gm/ Sodium (Chloride) 250 mls @ 250 mls/hr IV TID@0700,1500,2300 [facility] Last Admin: 03/21/22 15:10 Dose: 250 mls/hr Ibuprofen (Ibuprofen 800 Mg Tablet) 800 mg PO Q6H [facility] Last Admin: 03/21/22 12:05 Dose: 800 mg Lisinopril (Lisinopril 20 Mg Tablet) 40 mg PO DAILY [facility] Last Admin: 03/21/22 08:51 Dose: 40 mg Lorazepam (Lorazepam 1 Mg Tablet) 1 mg PO Q1H PRN; Protocol PRN Reason: CIWA >8 Magnesium Oxide (Magnesium Oxide 400 Mg Tablet) 400 mg PO DAILYWM [facility] Last Admin: 03/21/22 08:50 Dose: 400 mg Nicotine (Nicotine 14 Mg Patch) 1 patch TOP DAILY PRN PRN Reason: Nicotine Craving Ondansetron HCl (Ondansetron 4 Mg/2 Ml Vial) 4 mg IVP Q6HR PRN PRN Reason: Nausea / Vomiting Oxcarbazepine (Oxcarbazepine 150 Mg Tablet) 900 mg PO BID [facility] Last Admin: 03/21/22 08:50 Dose: 900 mg Oxycodone HCl (Oxycodone 5 Mg Tablet) 5 mg PO Q4HR PRN PRN Reason: PAIN Last Admin: 03/21/22 16:20 Dose: 5 mg Sodium Chloride (Sodium Chloride Flush 0.9% 10 Ml Syringe) 10 ml IVP PRN PRN PRN Reason: NEEDED PER PROVIDER ORDERS Sodium Chloride (Sodium Chloride Flush 0.9% 10 Ml Syringe) 10 ml IVP 0100,0900,1700 [facility] Last Admin: 03/21/22 16:21 Dose: Not Given Thiamine HCl (Thiamine 100 Mg Tablet) 100 mg PO DAILY [facility] Last Admin: 03/21/22 08:51 Dose: 100 mg Lisinopril [Zestril] 40 mg PO DAILY 12/12/21 OXcarbazepine [Trileptal] 900 mg PO BID 12/12/21 Ibuprofen [Motrin] 400 mg PO Q6HR PRN 03/17/22 amLODIPine [Norvasc] 5 mg PO DAILY 03/17/22 Objective - Vital Signs/Intake & Output Reviewed Vital Signs: Yes Vital Signs: Vital Signs x48h Temp Pulse Resp BP Pulse Ox 03/21/22 15:31 36.4 C L 90 16 162/93 H 95 03/21/22 11:53 36.4 C L 84 16 162/98 H 93 03/21/22 08:37 36.6 C 81 18 177/91 H 95 Intake & Output: Intake & Output 03/18/22 03/19/22 03/20/2203/21/22 23:59 23:59 23:59 23:59 Intake Total 4353.667 4460 7105.000 3045.000 Output Total 35 Balance 4318.667 4460 7105.000 3045.000 - Objective General Appearance: positive: Lethargic (Sedated, psychomotor slowing, under the influence of recent Dilaudid 2 mg IV push dose. As the morning progressed, he was more awake, speech was normal. And I switched him from IV Dilaudid to p.o. oxycodone) Eyes Bilateral: positive: PERRL ENT: positive: No signs of dehydration Neck: positive: No JVD. negative: Stiff neck Respiratory: positive: No respiratory distress. negative: Wheezes, Rales, R honchi Cardiovascular: positive: Regular rate & rhythm. negative: Gallop/S4, Friction rub Abdomen: positive: Non-tender, No organomegaly, Nml bowel sounds, No distention Skin: positive: Warm, Dry Extremities: positive: Full ROM, No pedal edema Neurologic/Psychiatric: positive: Oriented x3, CN's nml (2-12), Motor nml - Lab Results Fish Bones: 03/20/22 05:59 03/20/22 05:59 Other Labs: Lab Results x24hrs 03/21/22 Range/Units 12:56 Last Dose Date 03/20/22 Last Dose Time 1822 Vancomycin Trough 15.7 (10.0-20.0) ug/mL ABX Reporting Has patient been on IV antibiotics over the past 48 hours?: Yes Assessment/Plan - Problem List (1) Cutaneous abscess of face Impression: 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 The patient went to the OR 03/17 for debridement done by Dr. Fan of [facility] [place]. The patient's ID specialist is Dr. Ronquillo, at [facility], called me and gave me recommendations when he was admitted: The patient underwent a PICC line placment 03/20 and he will need an 8-week course of IV antibiotics. Dr Ronquillo has set him up to receive Ertapenem at [facility]. today the appointment was cancelled since he is still in the hospital and we are awaiting the sensitivities to make sure no MRSA Since we do not carry Ertepenam for inpatients, he was put on Meropenam iv while here as an Inpt. Today is POD #4. Pain meds [facility] prn from [facility] and I also switched from IV dilaudid to po since he was quite sedated this am. He will be on a liquid diet for [address] Mita Fan also stated he needs lifelong Peridex b.i.d Dr Ronquillo stated she will be ordering lifelong antibx, and consideration was for using Augmentin (see #3). Overall, once I get the sensitivities and make sure he does not have MRSA, he will be discharged to receive daily antibiotics through the MAC clinic. (2) Gram neg bacterial cellulitis Conclusion/Plan: Wound specimen was sent to the lab from OR, and prelim result showed many WBC and no organisms. No other cx information was available this morning, therefore I spoke to the Tech in Microbiology Lab today. There are 2 organisms growing, 1 is a coag- negative Staph and the other is a gram-negative bacteria. We will give iv Vancomycin empirically starting today, in case this staph is MRSA. Will await for bacterial identification and sensitivities, which the Microbiology Tech said would be available about noon tomorrow (03/21/2022), before we discharge him. I explained this to the patient and his significant other was in the room. They understand and agree with the plan. (3) Penicillin allergy Conclusion/Plan: Dr. Ronquillo requested that we do an on Amoxicillin challenge while he is hospitalized here, by giving a small dose of 250 mg of Amoxicillin and watch if he has an allergic reaction of any kind. We will treat hives or anaphylaxis as needed. If he has no significant allergic reaction then the treatment plan for lifelong suppressive antibiotic would be Augmentin, she said. The Amoxacillin challenge was done yesterday. It was discussed with the patient and he said he already heard this once in the past from Dr Ronquillo. Patient received Amoxicillin 250 mg po at 1300. He had no side effects, stable vital signs, no wheezing until 1530 when he started to have itching of his skin on his arms, upper back and face. By 1700 his itching was of his whole face, inside his ears and he noticed hives of his arms. He called his nurse. The RN confirmed and called me in. I evaluated him. He did have hives of his upper extremities and redness of his whole face. There was no wheezing. His vital signs were stable. He got IV Benadryl 25 mg x1. An EpiPen was also ordered prn. Therefore, a Penicillin allergy is indeed present and his reaction is hives. (4) Tobacco use Conclusion/Plan: Smoking cessation was recommended in Dr. Andrzej Fan' note. The patient was advised by me that he needs smoking cessation since this is harming his oral hygiene and lungs. Today we discussed that he could get a third infection and then hardware would need to be removed, he would have external wiring and screws, and would have a lifelong facial deformity, as per Dr Fan. A nicotine patch was ordered here prn for nicotine cravings and he has not requested it. He said he has many patches at home and was once able to quit smoking in the past, using tapering doses of patches. Wellbutrin also offered and agreed to try this. We ordered it to start while here. The RBA of Wellbutrin were discussed with pt. (5) Seizure disorder Conclusion/Plan: We are continuing his usual Trileptal antiseizure medication while here. (6) HTN (hypertension) Conclusion/Plan: We resumed his usual home medications of lisinopril and amlodipine, with parameters for holding them (7) Alcohol consumption binge drinking Conclusion/Plan: We ordered CIWA protocol and as needed Ativan for any withdrawal symptoms. He has had no withdrawal sx, so will stop the CIWA checks Also ordered daily thiamine po (8) Hypomagnesemia Assessment/Plan: Suspect this is from his poor diet, possibly related to this mouth/facial wound or due to his alcohol binging. Replacement magnesium ordered.
[2022-03-22] MEDS: IBUPROFEN 800 MG TABLET PO SCH ×3 (00:29→12:38)
[2022-03-22] MEDS: SODIUM CHLORIDE FLUSH 0.9% 10 ML SYRINGE IVP SCH ×3 (00:30→15:34)
[2022-03-22] MEDS: oxyCODONE 5 MG TABLET PO PRN ×4 (00:30→12:39)
[2022-03-22] MEDS: MEROPENEM 1 GM in SODIUM CHLORIDE 0.9% MINIBAG 100 ML IV SCH ×2 (01:58→08:56)
[2022-03-22] MEDS: ACETAMINOPHEN 325 MG TABLET PO PRN ×2 (04:41→08:49)
[2022-03-22] MEDS: VANCOMYCIN INJ 1 GM in SODIUM CHLORIDE 0.9% 250 ML IV SCH ×2 (06:30→14:13)
[2022-03-22] MEDS: THIAMINE 100 MG TABLET PO SCH (08:49)
[2022-03-22] MEDS: MAGNESIUM OXIDE 400 MG TABLET PO SCH (08:49)
[2022-03-22] MEDS: amLODIPine 5 MG TABLET PO SCH (08:50)
[2022-03-22] MEDS: CHLORHEXIDINE GLUCONATE 15 ML UDC PO SCH (08:50)
[2022-03-22] MEDS: lisinopriL 20 MG TABLET PO SCH (08:50)
[2022-03-22] MEDS: OXcarbazepine 150 MG TABLET PO SCH (08:50)
[2022-03-22] MEDS: SODIUM CHLORIDE 0.9% 1,000 ML IV SCH (08:56)
--- NOTE | 2022-03-22 11:59 | Discharge Plan ---
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 You needed to take you to the operating room to debride/scrape the infection off the bone and you needed to be put on Intravenous antibiotics. You are now able to go home with IV antibiotics that need to happen on a daily basis for the next 8 weeks. We estimate that you will take antibiotics until May 12. Plan of Treatment: 1. The oral maxillofacial surgery office will be giving you a call to make you an appointment in their office. 2. While you are on antibiotics please take an [id number] probiotic to help you with any diarrhea or complications. 3. Please see your primary care provider in follow-up. If you do not have a primary care provider, please establish yourself with an office so that you can have a regular doctor to see. Care Goals: To resolve this current medical problem with appropriate antibiotics, and to get back to "a normal life" Assessment: Patient states he understands treatment, care goals and will follow through No Smoking: If you smoke, Please STOP! Call for help. Follow-up with: Andrzej Fan DDS [Provider Admit Priv/Credential] -
[2022-03-22 15:33] VITALS: BP 154/83
--- NOTE | 2022-03-22 16:48 | DISCHARGE SUMMARY ---
"Discharge Summary Admit Date: 03/17/22 Discharge Date: 03/22/22 Discharging Provider: Carlota Hayes MD Primary Care Provider: MOO Boone Code Status: Attempt Resuscitation Condition at Discharge: Fair Discharge Disposition: 01 Home, Self Care - DIAGNOSES Discharge Diagnoses with Status of Each Condition: 1. Cutaneous abscess of face 2. Gram-negative bacterial cellulitis 3. Disorder new to Neisseria 4. Penicillin allergy 5. Tobacco use 6. Seizure disorder 7. Hypertension 8. Alcohol consumption binge drinking 9. Hypomagnesemia - HPI History of Present Illness: This is a 61-year-old white male with a history of tobacco use and alcohol binging, HTN and seizure disorder (both grand mal and absence seizure Hx). 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 Patient had the PICC line removed and Ertapenem discontinued approximately 2 weeks ago. Today the patient went to see Dr. Fan in follow-up and complained of drainage from the surgical site at the lower jaw below the chin. Dr. Fan diagnosed him with a fistula. The patient is being direct adm itted for management of recurrent infection, and to get IV antibiotics, and to have surgery for debridement by dr Fan, he will be taken to the OR today. 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 March 17 excision of Hope cutaneous fistula of the left mandible. Excision of 3 cm Hope mucosal fistula of the left mandible. Intraoral soft tissue advan cement flap. Closure of 4 cm intraoral wound over left mandible. Closure of 3 cm wound over the left neck. Debridement of granulation tissue over the left mandible and mandibular hardware. Placement of a PICC line March 20. Blood culture negative on March 17. Wound culture growing coag negative staph and Neisseria sicca Chin culture with few gram-positive cocci. As of March 23 still preliminary finding. - HOSPITAL COURSE Hospital Course: The patient had a fistula from an abscess in the soft tissue of his chin to the skin surface. He went to the operating room for debridement done by oral maxillofacial surgery. He already has an ID specialist named Dr. Mccabe from [facility]. He had a PICC line placed. He will need 8 weeks of antibiotic therapy and she has set him up to receive ertapenem in the MAC clinic here at the hospital. While in the hospital we do not use ertapenem and use meropenem. That is what he was given while here. We did add vancomycin temporarily when preliminary cultures showed gram-positive cocci. When the final evaluation was coag negative staph that was felt to be strep per the lab, vancomycin was discontinued. That identification took several days and that is why his discharge was delayed until he could verify this was not MRSA. Lab stated with 99% certainty that this was not MRSA. He needs to be on a liquid diet for 6 weeks per oral maxillofacial surgery. He needs to be on lifelong Peridex mouthwash twice a day. Dr. Mccabe is considering putting him on lifelong suppressive antibiotic therapy in the form of Augmentin. We did test to see if he really had a penicillin allergy. He was given a small dose of 250 mg of amoxicillin and he did develop hives within a few short hours. Tobacco cessation was recommended. Considering this is the second surgery for jaw infection we warned him that he may need a third surgery if his hardware was truly infected. We strongly recommended no smoking. He had a nicotine patch as needed and was also given Wellbutrin. Those were continued in the outpatient setting. As for his other medical problems of seizure disorder, hypertension he was resumed on his usual home meds. We counseled him on his alcohol binge drinking and to stop that. To continue thiamine in the outpatient setting. Hypomagnesemia was supplemented with oral magnesium. He was discharged to home and is to resume IV antibiotics through the MAC clinic as ordered by Dr. Mccabe. Temperature 36.3. Respiration 16. Pulse 71. Blood pressure 154/83. 95% on room air. He is a 5 foot 8 inch male who is 78.5 kg. Disheveled, unkempt eason. Neck has shotty adenopathy. Chin where he was operated on is covered in a bandage. There is no surrounding redness, heat, or drainage. Lungs have coarse upper airway sounds but no crackles rhonchi or whee zing. No increased respiratory effort with walking, talking. He has a regular rate and rhythm. Abdomen is soft and nontender. Extremities without edema. Greater than 30 minutes was spent coordinating discharge. - ALLERGIES Allergies/Adverse Reactions: Allergies Allergy/AdvReac Type Severity Reaction Status Date / Time Penicillins Allergy Unknown Verified 03/17/22 15:32 - MEDICATIONS Home Medications: Ambulatory Orders Medication Instructions Recorded Confirmed Lisinopril [Zestril] 40 mg PO DAILY 12/12/21 03/17/22 OXcarbazepine [Trileptal] 900 mg PO BID 12/12/21 03/17/22 Ibuprofen [Motrin] 400 mg PO Q6HR PRN 03/17/22 03/17/22 amLODIPine [Norvasc] 5 mg PO DAILY 03/17/22 03/17/22 Chlorhexidine [Peridex] 15 ml PO BID 03/22/22 Ertepenem 1 gm IV DAILY #51 03/22/22 Magnesium Oxide [Mag Ox] 400 mg PO DAILYWM tablet 03/22/22 Nicotine 14 mg Patch [Nicoderm] 1 patch TOP DAILY PRN patch 03/22/22 Thiamine [Vitamin B-1] 100 mg PO DAILY tablet 03/22/22 buPROPion [Wellbutrin Sr] 150 mg PO DAILY@1700 #30 tablet 03/22/22 oxyCODONE [Roxicodone] 5 mg PO Q4HR PRN #30 tablet 03/22/22 - LABS Result Diagrams: 03/20/22 05:59 03/20/22 05:59"
== END 2022-03-22 15:53 | disposition home or self-care (01) | DRG 857 ==
LOC: MS2 14:05
PROVIDERS: ADMIT Internal Medicine; ATTEND Specialist
PROC: 0WB3XZZ Excision of Oral Cavity and Throat, External Approach (ICD-10-PCS; principal; 2022-03-17 17:00)
DX: T81.49XA Infection following a procedure, other surgical site, initial encounter (principal); L02.01 Cutaneous abscess of face; L03.211 Cellulitis of face; M96.89 Other intraoperative and postprocedural complications and disorders of the musculoskeletal system; B96.89 Other specified bacterial agents as the cause of diseases classified elsewhere; G40.909 Epilepsy, unspecified, not intractable, without status epilepticus; I10 Essential (primary) hypertension; E83.42 Hypomagnesemia; L50.0 Allergic urticaria; T36.0X5A Adverse effect of penicillins, initial encounter; Y92.239 Unspecified place in hospital as the place of occurrence of the external cause; Y83.8 Other surgical procedures as the cause of abnormal reaction of the patient, or of later complication, without mention of misadventure at the time of the procedure; Z20.822 Contact with and (suspected) exposure to COVID-19; Z72.0 Tobacco use; Z79.899 Other long term (current) drug therapy; Z88.0 Allergy status to penicillin
CPT/HCPCS: 36415; 71045; 80048; 80053; 80076; 80202; 83735; 84100; 85025; 85610; 87040; 87070; 87077; 87181; 87205; 87635; A9270; J0330; J1170; J1200; J2185; J3370; J7040; J7120; 87075

== ENCOUNTER 2022-08-08 09:16 | Outpatient (CLI) | payer OTHER | END 2022-08-08 09:17 | disposition home or self-care (01) | LOC: LAB.R 09:16 | PROVIDERS: ATTEND Dentist Oral and Maxillofacial Surgery | DX: K12.2 Cellulitis and abscess of mouth (principal) | CPT/HCPCS: 81599; 87070; 87075; 87186 ==

== ENCOUNTER 2023-04-22 09:55 | Outpatient (CLI) | payer OTHER ==
[2023-04-22] MEDS ORDERED: SODIUM CHLORIDE FLUSH 0.9% 10 ML SYRINGE IVP PRN (10:25)
[2023-04-22] MEDS ORDERED: SODIUM CHLORIDE 0.9% IV SCH (11:00)
[2023-04-22] MEDS ORDERED: [UNRECOGNIZED DRUG - OTHER] IV SCH (11:00)
== END 2023-04-22 13:43 | disposition home or self-care (01) ==
LOC: MAC.INF 09:55
PROVIDERS: ATTEND Internal Medicine Infectious Disease
DX: M27.2 Inflammatory conditions of jaws (principal)
CPT/HCPCS: 96365; J0121

== ENCOUNTER 2023-05-18 06:33 | Inpatient (IN) | payer OTHER ==
[2023-05-18] MEDS ORDERED: LACTATED RINGERS 1,000 ML IV ONE ×5 (07:03→16:07)
--- NOTE | 2023-05-18 07:15 | ANESTHESIA ---
Pre-Anesthesia VS, & Labs - Diagnosis osteomyelitis of L jaw - Procedure L TMJ replacement Vital Signs: Temp Pulse Resp BP Pulse Ox O2 Flow Rate 36.2 C L 79 14 126/90 H 96 05/18/23 06:56 05/18/23 06:56 05/18/23 06:56 05/18/23 06:56 05/18/23 06:56 Height: 5 ft 8 in Weight (kg): 84.7 kg Body Mass Index: 28.3 BMI Classification: Overweight - NPO >8 hours - Lab Results Lab results reviewed: Yes Home Medications and Allergies OXcarbazepine [Trileptal] 900 mg PO BID 12/12/21 amLODIPine [Norvasc] 10 mg PO DAILY 03/17/22 Cholecalciferol [Vitamin D3] 50 mcg PO DAILY 03/13/23 Acetaminophen with Codeine [Acetaminophen-Cod #3 Tablet] 1 each PO Q4H PRN 05/07/23 oxyCODONE [Roxicodone] 5 mg PO Q4-6H PRN 05/07/23 Allergies/Adverse Reactions: Allergies Allergy/AdvReac Type Severity Reaction Status Date / Time No Known Drug Allergies Allergy Verified 03/16/23 10:19 Anes History & Medical History - Anesthetic History Anesthesia Complications: reports: No previous complications Family history of Anesthesia Complications: Denies Family history of Malignant Hyperthermia: Denies - Medical History Cardiovascular: reports: Hypertension Pulmonary: reports: Sleep apnea Gastrointestinal: reports: None Urinary: reports: Kidney stones Neuro: reports: Seizure disorder Musculoskeletal: reports: Chronic back pain Endocrine/Autoimmune: reports: None Blood Disorders: reports: None Skin: reports: None Smoking Status: Smoker current status unk - Surgical History Eyes Ears Nose Throat (EENT): reports: Other Urologic: reports: Ureterolithotomy (stones) Exam General: Alert, Oriented x3, Cooperative Dental: Poor dentition Mouth Opening: Can't Open Mouth (wired) Neck Mobility: Normal Thyromental Distance: greater than 6 cm Respiratory: Lungs clear Cardiovascular: Regular rate Neurological: Normal speech Mental/Cognitive Status: Normal for patient Cognitive Status: Within normal limits Plan Anesthesia Type: General Consent for Procedure(s) Verified and Reviewed: Yes Code Status: Attempt Resuscitation ASA classification: 3-Severe systemic disease Is this case an emergency?: No
[2023-05-18] MEDS ORDERED: ONDANSETRON 4 MG/2 ML VIAL IVP PRN ×2 (07:16→15:37)
[2023-05-18] MEDS ORDERED: METOCLOPRAMIDE 10 MG/2 ML VIAL IVP PRN (07:16)
[2023-05-18] MEDS ORDERED: ePHEDrine 50 MG/ML VIAL IVP PRN (07:16)
[2023-05-18] MEDS ORDERED: MORPHINE 2 MG/ML CARPUJECT IVP PRN (07:16)
[2023-05-18] MEDS ORDERED: NALOXONE 0.4 MG/ML VIAL IVP PRN (07:16)
[2023-05-18] MEDS ORDERED: ATROPINE ABBOJECT 1 MG/10 ML SYRINGE IVP PRN (07:16)
[2023-05-18] MEDS ORDERED: fentaNYL 100 MCG/2 ML VIAL ONE ×4 (07:21→15:29)
[2023-05-18] MEDS ORDERED: MIDAZOLAM 2 MG/2 ML VIAL ONE (07:21)
[2023-05-18] MEDS ORDERED: KETOROLAC 30 MG/ML VIAL ONE (07:31)
[2023-05-18] MEDS ORDERED: ROCURONIUM 50 MG/5 ML VIAL ONE (07:31)
[2023-05-18] MEDS ORDERED: LIDOCAINE-PF 2% 10 ML AMP SUBQ ONE (07:31)
[2023-05-18] MEDS ORDERED: PROPOFOL 200 MG/20 ML VIAL IVP ONE ×2 (07:31→09:31)
[2023-05-18] MEDS ORDERED: DEXAMETHASONE 4 MG/ML VIAL ONE (07:31)
[2023-05-18] MEDS ORDERED: ERTAPENEM 1 GM in SODIUM CHLORIDE 0.9% MINIBAG 100 ML IV ONE (08:00)
[2023-05-18] MEDS ORDERED: LACTATED RINGERS 1,000 ML IV SCH (08:00)
[2023-05-18] MEDS ORDERED: HYDROmorphone 1 MG/ML CARPUJECT ONE ×2 (09:12→15:26)
[2023-05-18] MEDS ORDERED: EPINEPHrine 1 MG/ML AMP SUBQ ONE (09:19)
[2023-05-18] MEDS ORDERED: LIDOCAINE 1%-EPI 1:100000 20 ML MDV SUBQ ONE (09:20)
[2023-05-18] MEDS ORDERED: BACITRACIN ZINC OINT 14 GM TOP ONE (09:30)
[2023-05-18] MEDS ORDERED: OXYMETAZOLINE HCL 100 SPRAYS BOTTLE NAS ONE (09:50)
[2023-05-18] MEDS ORDERED: VANCOMYCIN 1 GM VIAL MC ONE (11:01)
[2023-05-18] MEDS ORDERED: ePHEDrine 50 MG/ML VIAL IVP ONE (12:29)
[2023-05-18] MEDS ORDERED: PHENYLEPHRINE HCL 0.5 MG/5 ML AMPULE ONE (12:31)
[2023-05-18] MEDS ORDERED: TRANEXAMIC ACID 1,000 MG/10 ML VIAL ONE (12:56)
[2023-05-18] MEDS ORDERED: BACITRACIN ZINC OINT 1 PACKET TOP ONE (14:48)
[2023-05-18] MEDS: HYDROmorphone 0.5 MG/0.5 ML SYRINGE IVP PRN ×5 (15:15→22:02)
[2023-05-18] MEDS: fentaNYL 100 MCG/2 ML VIAL IVP PRN ×2 (15:20→15:30)
--- NOTE | 2023-05-18 15:43 | OPERATIVE REPORT ---
Operative Report - General Admit Date: 05/18/23 Planned Procedure: 1. Removal of proximal segment of left mandible with disarticulation of the temporomandibular joint 2. Removal of superficial hardware from the maxilla and mandible, intermaxillary fixation hardware 3. total joint arthroplasty of the left temporomandibular joint and reconstruction of the left mandibular body with custom prosthesis Pre-Op Diagnosis: Osteomyelitis of the left mandible Procedure Performed: 1. Removal of proximal segment of left mandible with disarticulation of the temporomandibular joint 2. Removal of superficial hardware from the maxilla and mandible, intermaxillary fixation hardware 3. total joint arthroplasty of the left temporomandibular joint and reconstruction of the left mandibular body with custom prosthesis Post Op Diagnosis: osteomyelitis of the left mandible - Procedure Note Primary Surgeon: Andrzej Fan DDS Anesthesia Provider: TATI Lucio Anesthesia Technique: General ET tube ( via the left naris) Estimated Blood Loss (mL): 200 Urine Output (mL): 500 Drain/Tube Type: Rolf drain Indications: Rey is a 62-year-old male who has a history of resection of the left mandibular body after diagnosis of osteomyelitis. His hardware became and failed and he developed an osteocutaneous fistula. His hardware was removed. It was decided that reconstruction of the left mandible with disarticulation of the proximal segment of the mass of the left temporomandibular joint was indicated with replacement of the left temporomandibular joint and left mandibular body with a prosthetic. The risks, benefits, and alternatives of this plan were discussed with the patient including pain, swelling, bleeding, infection, need for further surgery, need for long-term or lifelong antibiotics, malocclusion, nonunion, hardware failure, scarring, nerve damage with paralysis paralysis of the entire left face hand or numbness and/or paresthesia of the left face. Adequate time was given answer all questions and informed consent was obtained Findings: the patient was brought to the main operating room and placed in supine position on the operating table. General anesthesia was induced by the anesthesia team and the airway was secured with a nasal endotracheal tube via the left naris. The tube was secured to the septum of the nose with a silk suture. The pressure points were padded and checked. The patient was prepped and draped in the standard sterile fashion for a temporomandibular joint total joint arthroplasty. A formal timeout was executed local anesthesia was not administered. Instead, 1-50,000 epinephrine was injected subcutaneously, approximately 5 cc. The left preauricular incision was made first. The incision was made with a #15 blade through skin. Blunt dissection down to the temporalis muscle was performed. The plane of the temporalis fascia was followed down to the zygomatic arch. Blunt dissection was used to expose the zygomatic arch which was exposed in a subperiosteal plane. The nerve stimulator was used throughout the dissection to protect the frontal branch of the facial nerve. The temporomandibular joint capsule was identified. Capsule was incised. Bleeding in this area was controlled with a combination of bipolar electrocautery and hand ties. The TMJ condyle was identified and dissection along the condyle and condylar neck was performed in a subperiosteal plane. The fossa was also identified and cleaned with a curette. The disc was also identified. Attention was directed to the left submandibular area. An incision was made from the left submandibular area to the right parasymphysis area. The incision followed the old incision line. Blunt dissection was used to dissect superiorly and create a soft tissue envelope where the implant could be placed. The distal segment of the mandible was easily identified. The proximal segment of the mandible was harder to identify. Was quickly realized that it would be ne cessary to place the hands intraorally in order to use palpation make sure that no perforations in the mouth would occur. In preparation for this, the mouth was cleansed with a toothbrush and with Peridex mouth rinse. Throat pack was placed prior to this. Palpation was used to make sure that no perforation into the mouth was performed was accidentally made. Throughout the entire dissection, no perforation occurred. The proximal segment of the left mandible was identified. Subperiosteal dissection around the segment was performed. The temporalis muscle was removed from the segment. The medial pterygoid muscle was removed from the segment. This process was difficult because of difficulty with access. There were no problems with arterial bleeding during this portion of the procedure. This portion of the procedure took approximately 1 hour. Finally, the mandible was disarticulated. The proximal segment was used as a specimen for aerobic and anaerobic culture. The TMJ disc was then carefully excised. A curette was used to clean out the fossa. The TMJ concepts fossa implant was tried in place and found to fit very nicely. 4 screws were used to hold it in place. It was very stable. The mandibular portion of the implant was then placed. It was placed with the condyle in the fossa and then the bone surface being adapted to the anterior mandible. It was secured into place with 8 screws. The guidelines provided by TMJ concepts were followed throughout the case with the exception only of a single screw which was placed in the fossa component which was unstable. This was one of the 4 mm screws and it was removed and instead a 10 mm 2.3 mm diameter screw was placed in its stead. The entire area was irrigated with copious amounts of vancomycin impregnated saline. Bleeding was controlled with a combination of Surgiflo and electrocautery. It was necessary to develop subcutaneous planes of the submental soft tissue and of the cervical soft tissue in order to allow for passive closure over the new hardware, especially at the premental soft tissue and near the left mandibular parasymphysis region because this is where the most severe fistula had formed previously and this tissue was scarred and some excision of the cyst tissue had also been performed when the osteocutaneous fistula was removed. a Rolf drain was placed lateral to the mandibular ramus area and was made to emerge inferior to the submandibular incision. It was secured to the skin with 2-0 silk suture. After developing a subcutaneous envelope to allow for passive advancement of the soft tissue without tension, the deep layers were closed with 4-0 Vicryl suture. The skin layer was closed with 5-0 Prolene suture. The closure was tensionless. A similar technique was used in the preauricular incision except it was not necessary to develop any subcutaneous soft tissue envelopes. This marked the end of the procedure. The throat pack was removed. The mouth was rinsed free of debris. The face was cleansed. The drapes were removed. The Tegaderms over the eyes were removed. Care of the patient was returned to the anesthesia team for uneventful emergence from anesthesia. The patient was Transferred to the PACU in stable condition. Complications: none
--- NOTE | 2023-05-18 16:59 | CONSULTATION NOTE ---
Referring Provider Name of Referring Provider:: Andrzej Fan DDS Consult Date: 05/18/23 Chief Complaint - Chief Complaint Chief Complaint: mandibular osteomylitis s/p left mandibular reconstruction with prosthesis History of Present Illness - Admitted From Admitted From:: OR - History Obtained From Records Reviewed: YES History obtained from: Patient, Exam Limitations: None - History of Present Illness HPI Comment/Other: Patient is a 62-year-old male with a past medical history of hypertension, obstructive sleep apnea, seizure disorder, high opioid tolerance. Patient has a pertinent history of osteomyelitis s/p resection of his left mandibular body. This was complicated by an osteocutaneous fistula resulting in removal of his hardware with reconstruction of his left mandible and replacement with a prosthetic on 05/18/2023. Patient had an estimated blood loss of 200 mL. His postoperative course was uncomplicated and his vital signs were stable. A drain has been left in and is currently draining serosanguineous fluid. Patient was evaluated postoperatively and complained of only mild pain. He denied any fever or chills. Extensive discussion was had with patient's ID physician Dr. Mccabe regarding his antibiotic regimen. He is currently on omadacycline 100 mg daily and will receive this during his hospital course. Patient takes oxcarbazepine for his history of seizures. His reports that his last seizure was in 2018 and he has been feeling seizure-free since this date. History - Past Medical History Cardiovascular: reports: Hypertension Respiratory: reports: Sleep apnea Neuro: reports: Seizure disorder Endocrine/Autoimmune: reports: None GI: reports: None [employer] C[employer]ER SERVICE: reports: None : reports: Kidney stones HEENT: reports: Chronic vision loss Psych: reports: None Musculoskeletal: reports: Chronic back pain Derm: reports: None MRSA Hx?: No - Past Surgical History HEENT: reports: Other - Family & Social History Family History: Mother: (Father of lung CA), Father: , S ister: Alive and Well (2 older brothers, 1 younger sister, health unknown. A 27-year-old daughter is healthy, a son in an auto accident.), Brother: Alive and Well Living Situation: With spouse/s.o. 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 He smoked about 1 pack/day of cigarettes. He used to drink between 0 to a sixpack of beer a day, then 1-8 beers 3 times a week, and says he has never had alcohol withdrawal. - Substance History Use: Uses substance without health or social issues: Tobacco, Alcohol - POLST Patient has POLST: No Meds/Allgy - Home Medications Home Medications: Ambulatory Orders Medication Instructions Recorded Confirmed OXcarbazepine [Trileptal] 900 mg PO BID 12/12/21 05/17/23 amLODIPine [Norvasc] 10 mg PO DAILY 03/17/22 05/17/23 Cholecalciferol [Vitamin D3] 50 mcg PO DAILY 03/13/23 05/17/23 Acetaminophen with Codeine 1 each PO Q4H PRN 05/07/23 05/17/23 [Acetaminophen-Cod #3 Tablet] oxyCODONE [Roxicodone] 5 mg PO Q4-6H PRN 05/07/23 05/17/23 - Allergies Allergies/Adverse Reactions: Allergies Allergy/AdvReac Type Severity Reaction Status Date / Time No Known Drug Allergies Allergy Verified 03/16/23 10:19 Review of Systems - Ears, Nose & Throat Ears, Nose & Throat: reports: Other (Jaw pain) - All Other Systems All Other Systems: reports: Reviewed and negative Exam - Vital Signs Vital Signs: Vital Signs x48h Temp Pulse Pulse Resp BP BP Pulse Ox 05/18/23 16:15 36.8 C 106 H 15 138/92 H 95 05/18/23 16:00 107 H 12 138/92 H 92 05/18/23 15:45 106 H 14 116/80 92 05/18/23 15:35 36.3 C L 104 H 12 117/74 95 05/18/23 15:30 104 H 13 117/85 H 94 05/18/23 15:25 108 H 13 112/78 94 05/18/23 15:20 110 H 13 119/86 H 94 05/18/23 15:15 112 H 14 118/82 H 94 05/18/23 15:10 117 H 18 120/81 H 95 05/18/23 15:05 113 H 18 115/79 95 05/18/23 15:00 36.9 C 115 H 18 117/77 95 O2 Flow Rate 05/18/23 16:15 05/18/23 16:00 05/18/23 15:45 05/18/23 15:35 5 05/18/23 15:30 05/18/23 15:25 05/18/23 15:20 05/18/23 15:15 05/18/23 15:10 05/18/23 15:05 05/18/23 15:00 - Physical Exam General Appearance: positive: Alert, Mild distress Eyes Bilateral: positive: Normal inspection, PERRL, EOMI ENT: positive: Other (Surgical drain in place. Incision site clean.) Respiratory: positive: Chest non-tender, No respiratory distress, Breath sounds nml Cardiovascular: positive: No murmur, No gallop, Tachycardia Abdomen: positive: Non-tender, No organomegaly, Nml bowel sounds, No distention Extremities: positive: Non-tender, No pedal edema Neurologic/Psychiatric: positive: Oriented x3, CN's nml (2-12) Conclusion/Plan - Problem List (1) Acute osteomyelitis of mandible Conclusion/Plan: -- Postop day 0. Patient had surgery on his jaw on 05/18 with no postoperative complications. -- Continue omadacycline 100 mg IV daily as recommended by Dr. Mccabe, infectious disease. -- Anticipate he may discharge on Sunday. (2) Seizure Conclusion/Plan: --Currently on oxcarbazepine at home. Resume medication when patient is reliably able to take orals. In the past medication has been crushed up and he was able to drink through a straw. --Ativan will be ordered in the meantime. -- Seizure-free since 2018. (3) JAN (obstructive sleep apnea) Conclusion/Plan: --Patient does not use a CPAP device at home. (4) Alcohol consumption binge drinking Conclusion/Plan: -- reports that patient did drink last night. We will start him on a CIWA protocol with IV Ativan given his seizure history. --1 banana bag ordered. (5) HTN (hypertension) Conclusion/Plan: -- Holding home antihypertensive medications today as his blood pressures are normotensive. Can consider starting them tomorrow on postoperative day 1. (6) Opiate dependence Conclusion/Plan: --We will defer pain control to surgery. - Lab Results Lab results reviewed: Yes
[2023-05-18] MEDS ORDERED: LORazepam 2 MG/ML VIAL IVP PRN (17:09)
--- NOTE | 2023-05-18 17:23 | ANESTHESIA POST OP EVALUATION ---
Anesthesia Post Eval - Post Anesthesia Eval Vitals: Last Vital Signs Temp 36.8 C 05/18/23 16:15 Pulse 106 H 05/18/23 16:15 Resp 15 05/18/23 16:15 BP 138/92 H 05/18/23 16:15 Pulse Ox 95 05/18/23 16:15 O2 Flow Rate 5 05/18/23 15:35 CV Function Including HR & BP: Stable Pain Control: Satisfactory Nausea & Vomiting: Negative Mental Status: Baseline Respiratory Status: Airway Patent Hydration Status: Satisfactory Anesthesia Complications: None - Other Details/Therapies Other Details/Therapies: discussed w manager of internal audit need to cough/deep breathe exercises while on the floor to continue to expectorate bloody phlegm from airway/lungs
[2023-05-18] MEDS: SODIUM CHLORIDE 0.9% IV SCH (17:50)
[2023-05-18] MEDS: [UNRECOGNIZED DRUG - OTHER] IV SCH (17:50)
[2023-05-18] MEDS ORDERED: MULTIVITAMIN 10 ML, THIAMINE INJ 100 MG, FOLIC ACID INJ 1 MG in SODIUM CHLORIDE 0.9% 1,... IV SCH (18:00)
[2023-05-18] MEDS: OXcarbazepine 150 MG TABLET PO SCH (20:47)
[2023-05-18] MEDS: CHLORHEXIDINE GLUCONATE 15 ML UDC PO SCH (20:54)
[2023-05-18] MEDS: ACETAMINOPHEN 1,000 MG/100 ML 1,000 MG/100 ML BAG IV PRN (21:37)
[2023-05-19] MEDS: HYDROmorphone 0.5 MG/0.5 ML SYRINGE IVP PRN ×4 (00:27→07:50)
[2023-05-19] MEDS: ACETAMINOPHEN 1,000 MG/100 ML 1,000 MG/100 ML BAG IV PRN (05:06)
[2023-05-19 05:36] LABS: BASOPHILS # (AUTO) 0.1 10^3/uL (0.0-0.1); BASOPHILS % (AUTO) 0.7 %; EOSINOPHILS # (AUTO) 0.1 10^3/uL (0.0-0.7); EOSINOPHILS % (AUTO) 0.8 %; HCT - HEMATOCRIT 35.2 % (42.0-52.0); HGB - HEMOGLOBIN 11.4 g/dL (14.0-18.0); LYMPHOCYTES # (AUTO) 1.6 10^3/uL (1.5-3.5); LYMPHOCYTES % (AUTO) 21.4 %; MEAN CORPUSCULAR HEMOGLOBIN 30.9 pg (27.0-31.0); MEAN CORPUSCULAR HGB CONC 32.4 g/dL (32.0-36.0); MEAN CORPUSCULAR VOLUME 95.4 fL (80.0-94.0); MEAN PLATELET VOLUME 10.6 fL (7.4-11.4); MONOCYTES # (AUTO) 0.5 10^3/uL (0.0-1.0); NEUTROPHILS # (AUTO) 5.1 10^3/uL (1.5-6.6); NEUTROPHILS % (AUTO) 69.8 %; PLT - PLATELET COUNT 182 10^3/uL (130-450); RED BLOOD COUNT 3.69 10^6/uL (4.70-6.10); RED CELL DISTRIBUTION WIDTH 15.7 % (12.0-15.0); WHITE BLOOD COUNT 7.3 x10^3/uL (4.8-10.8)
[2023-05-19 07:06] LABS: CALCIUM 8.5 mg/dL (8.5-10.3); CREATININE 0.6 mg/dL (0.6-1.3)
[2023-05-19] MEDS ORDERED: MULTIVITAMIN 10 ML, THIAMINE INJ 100 MG, FOLIC ACID INJ 1 MG in SODIUM CHLORIDE 0.9% 1,... IV ONE (09:00)
--- NOTE | 2023-05-19 09:06 | PHARMACY PROGRESS NOTE ---
- Best Possible Medication History Admit Date and Time: 05/18/23 0633 Processed by: Nursing As the person ultimately responsible for medication therapy, providers are able to order a medication from an existing home medication list in [facility] via the "Reconcile Routine" prior to Confirmation of that medication by operations support professionals. Such practice is discouraged except when the physician, in their clinical judgment, deems that a medical need exists for a medication without regard to previous use.
[2023-05-19] MEDS: CHLORHEXIDINE GLUCONATE 15 ML UDC PO SCH ×2 (09:10→20:29)
[2023-05-19] MEDS: amLODIPine 5 MG TABLET PO SCH (09:10)
[2023-05-19] MEDS: OXcarbazepine 150 MG TABLET PO SCH ×2 (09:10→20:28)
--- NOTE | 2023-05-19 09:53 | PROVIDER PROGRESS NOTE ---
Subjective - General Admit Date: 05/18/23 Procedure Date: 05/18/23 Post Op Days: 1 Procedure Performed: Reconstruction of the L TMJ and mandible with prosthetic mandible - Review of Systems Wound/Incisions: positive: Healing well, Dressing dry and intact (Moderate serosanguinous drainage) Drain Type: Rolf Drain Output Description: Serosanguinous Approximate mls Output: Less than 10 mL General: negative: Fever, Weakness, Fatigue HEENT: positive: Headaches, Other (L Mandible pain, incision pain.) Pulmonary: positive: Sputum. negative: Shortness of breath, Cough Cardiovascular: positive: No symptoms Gastrointestinal: positive: No symptoms All Other Systems: positive: Reviewed and negative Objective - Patient Data Vital Signs: Vital Signs x48h Temp Pulse Resp BP Pulse Ox O2 Flow Rate 05/19/23 08:30 36.5 C 77 18 118/76 98 4 05/19/23 05:02 36.7 C 85 16 147/80 H 97 4 Weight: Weight 05/17/23 05/18/23 05/19/23 23:59 23:59 23:59 Weight (kg) 84.7 kg Intake & Output: Intake and Output Totals x24h 05/17/23 05/18/23 05/19/23 23:59 23:59 23:59 Intake Total 1100 340 Output Total 1963 901 Balance -863 -561 - Lab Results Lab Results: 05/19/23 05:16 05/19/23 05:16 Other Lab Results: Lab Results x24hrs 05/19/23 05/19/23 Range/Units 05:16 05:16 WBC 7.3 (4.8-10.8) x10^3/uL RBC 3.69 L (4.70-6.10) 10^6/uL Hgb 11.4 L (14.0-18.0) g/dL Hct 35.2 L (42.0-52.0) % MCV 95.4 H (80.0-94.0) fL MCH 30.9 (27.0-31.0) pg MCHC 32.4 (32.0-36.0) g/dL RDW 15.7 H (12.0-15.0) % Plt Count 182 (130-450) 10^3/uL MPV 10.6 (7.4-11.4) fL Neut # (Auto) 5.1 (1.5-6.6) 10^3/uL Lymph # (Auto) 1.6 (1.5-3.5) 10^3/uL [place] # (Auto) 0.5 (0.0-1.0) 10^3/uL Eos # (Auto) 0.1 (0.0-0.7) 10^3/uL Baso # (Auto) 0.1 (0.0-0.1) 10^3/uL Absolute Nucleated RBC 0.00 x10^3/uL Nucleated RBC % 0.0 /100WBC Sodium 137 (135-145) mmol/L Potassium 4.0 (3.5-4.5) mmol/L Chloride 103 (101-111) mmol/L Carbon Dioxide 28 (21-32) mmol/L Anion Gap 6.0 (6-13) BUN 10 (6-20) mg/dL Creatinine 0.6 (0.6-1.3) mg/dL Estimated GFR (MDRD) 137 (>89) Glucose 102 (74-104) mg/dL Calcium 8.5 (8.5-10.3) mg/dL - Current Medications Current Medications: Current Medications Generic Name Dose Route Start Last Admin Trade Name Freq PRN Reason Stop Dose Admin Amlodipine Besylate 10 mg 05/19/23 09:00 05/19/23 09:10 Amlodipine 5 Mg Tablet PO 10 mg DAILY BRIGHT Administration Chlorhexidine Gluconate 15 ml 05/18/23 21:00 05/19/23 09:10 Chlorhexidine Gluconate 15 Ml Udc PO 15 ml BID BRIGHT Administration Omadacycline 100 mg/ Sodium 100 mls @ 200 mls/hr 05/18/23 17:00 05/18/23 18:20 Chloride IV Infused DAILY BRIGHT Infusion Acetaminophen 1,000 mg in 100 mls @ 400 mls/hr 05/18/23 21:08 05/19/23 05:21 Acetaminophen IV 05/19/23 21:08 Infused Q8HR PRN Infusion Moderate Pain (Level 4-6) Oxcarbazepine 900 mg 05/18/23 21:00 05/19/23 09:10 Oxcarbazepine 150 Mg Tablet PO 900 mg BID BRIGHT Administration - Physical Exam Wound/Incisions: positive: Healing well, Drainage (Moderate SS Dressing applied by nursing, intact) General Appearance: positive: No acute distress, Alert Eyes Bilateral: positive: PERRL ENT: positive: Other (Opens to 15mm. Occlusion stable and repeatable. No bleeding in the mouth. Moderate postop edema. No hematoma. Tongue not elevated. Uvula midline.) Neck: positive: Other ( Mild to moderate postop edema in the left submandibular region. Incision clean and intact. No active drainage right now. Sutures in tact.) Respiratory: positive: Chest non-tender, No respiratory distress Cardiovascular: positive: Regular rate & rhythm Abdomen: positive: Non-tender Neurologic/Psychiatric: positive: Other ( no weakness of the left facial nerve.) Impression/Plan - Problem List Problem List: 62-year-old male postop day #1 status post: 1. Resection of remaining left mandible with disarticulation of the temporomandibular joint 2. Reconstruction of the left temporomandibular joint and left mandible with custom prosthetic 3. Removal of arch bars from the maxilla and mandible Following a normal postoperative course. He looks surprisingly well today. He has minimal complaints and has not needed anywhere near as much pain control as he did during his previous visit. This may be explained by the fact that his proximal segment was left to swing after his last visit and is rotated superiorly in a way that caused pain in the area. What ever the case may be he is feeling much better after this surgery. -He is getting his omadacycline. -He still has his Robbins catheter in and this needs to be discontinued. -IV pain medications were discontinued and p.o. pain medications were started. -He needs to remain on a full liquid diet while he is in house and when he goes home. After discharge I will see him in my office and monitor the swelling in his mouth and prescribe a in advancement in his diet once he is ready. This will likely take about a week. -Encourage ambulation. -Encourage liquid and calorie intake. -The dressings on the neck are there to keep him clean. They should be changed whenever they become saturated. -There was minimal to no output from the drain today. I will discontinue it tomorrow unless output is over 50 cc in the next 24 hrs. Appreciate internal medicine assistance with Rey's hospitalization. Please call or text with any questions or concerns. Andrzej Fan DDS [phone]
[2023-05-19] MEDS: IBUPROFEN 600 MG TABLET PO SCH ×3 (11:50→23:41)
[2023-05-19] MEDS: oxyCODONE 5 MG TABLET PO PRN ×3 (11:50→20:28)
[2023-05-19] MEDS: [UNRECOGNIZED DRUG - OTHER] IV SCH (13:05)
[2023-05-19] MEDS: SODIUM CHLORIDE 0.9% IV SCH (13:05)
--- NOTE | 2023-05-19 15:06 | PROVIDER PROGRESS NOTE ---
Assessment/Plan - Problem List (1) Acute osteomyelitis of mandible Assessment/Plan: (1) Acute osteomyelitis of mandible Conclusion/Plan: -- Postop day 1. Patient had surgery on his jaw on 05/18 with no postoperative complications. -- Continue omadacycline 100 mg IV daily as recommended by Dr. Mccabe, infectious disease. -- Anticipate he may discharge on Sunday. --Discussed case with Dr. Fan. Recommending PO pain medication. Early ambulation and removal of killian cathether. (2) Seizure Conclusion/Plan: --Currently on oxcarbazepine at home. Resume medication when patient is reliably able to take orals. In the past medication has been crushed up and he was able to drink through a straw. --Ativan will be ordered in the meantime. -- Seizure-free since 2018. (3) JAN (obstructive sleep apnea) Conclusion/Plan: --Patient does not use a CPAP device at home. (4) Alcohol consumption binge drinking Conclusion/Plan: -- reports he had some alcohol before he came to the hospital. Not scoring on CIWA. (5) HTN (hypertension) Conclusion/Plan: -- Continue home antihypertensives. (6) Opiate dependence Conclusion/Plan: --We will defer pain control to surgery. - Current Meds Current Meds: Current Medications Generic Name Dose Route Start Last Admin Trade Name Freq PRN Reason Stop Dose Admin Amlodipine Besylate 10 mg 05/19/23 09:00 05/19/23 09:10 Amlodipine 5 Mg Tablet PO 10 mg DAILY BRIGHT Administration Chlorhexidine Gluconate 15 ml 05/18/23 21:00 05/19/23 09:10 Chlorhexidine Gluconate 15 Ml Udc PO 15 ml BID BRIGHT Administration Omadacycline 100 mg/ Sodium 100 mls @ 200 mls/hr 05/18/23 17:00 05/19/23 13:35 Chloride IV Infused DAILY BRIGHT Infusion Acetaminophen 1,000 mg in 100 mls @ 400 mls/hr 05/18/23 21:08 05/19/23 05:21 Acetaminophen IV 05/19/23 21:08 Infused Q8HR PRN Infusion Moderate Pain (Level 4-6) Multivitamins 10 ml/ Thiamine 1,011.2 mls @ 100 mls/hr 05/19/23 09:00 05/19/23 09:50 HCl 100 mg/ Folic Acid 1 mg/ IV 05/19/23 19:06 100 mls/hr Sodium Chloride ONCE ONE Administration Ibuprofen 600 mg 05/19/23 12:00 05/19/23 11:50 Ibuprofen 600 Mg Tablet PO 600 mg Q6HR BRIGHT Administration Oxcarbazepine 900 mg 05/18/23 21:00 05/19/23 09:10 Oxcarbazepine 150 Mg Tablet PO 900 mg BID BRIGHT Administration Oxycodone HCl 5 mg 05/19/23 09:48 05/19/23 11:50 Oxycodone 5 Mg Tablet PO 5 mg Q4HR PRN Administration Moderate Pain (Level 4-6) - Lab Result Fish Bone Diagrams: 05/19/23 05:16 05/19/23 05:16 - Additional Planning My Orders: My Active Orders 05/18/23 17:00 Omadacycline Tosylate [Nuzyra] 100 mg Sodium Chloride 0.9% 100Ml [Normal Saline 0.9% 100Ml] 100 ml IV DAILY 05/18/23 17:09 CIWA - AR Score Card [RC] Q4HR LORazepam INJ [Ativan Inj (Vial)] 1 mg IVP Q30M PRN 05/18/23 21:00 OXcarbazepine [Trileptal] 900 mg PO BID 05/19/23 09:00 Multivitamin [Infuvite] 10 ml Thiamine Inj [Vitamin B-1 Inj] 100 mg Folic Acid Inj [Folic Acid] 1 mg Sodium Chloride 0.9% [Normal Saline 0.9%] 1,000 ml IV ONCE amLODIPine [Norvasc] 10 mg PO DAILY 05/20/23 05:00 BMP - BASIC METABOLIC PANEL [CHEM] DAILYLAB CBC [CBC - COMP BLD CT W/AUTO DIFF] [HEME] DAILYLAB 05/21/23 05:00 BMP - BASIC METABOLIC PANEL [CHEM] DAILYLAB CBC [CBC - COMP BLD CT W/AUTO DIFF] [HEME] DAILYLAB 05/22/23 05:00 BMP - BASIC METABOLIC PANEL [CHEM] DAILYLAB CBC [CBC - COMP BLD CT W/AUTO DIFF] [HEME] DAILYLAB 05/23/23 05:00 BMP - BASIC METABOLIC PANEL [CHEM] DAILYLAB CBC [CBC - COMP BLD CT W/AUTO DIFF] [HEME] DAILYLAB Subjective - Subjective Patient Reports: Feeling Better, Resting Comfortably, No Complaints Objective Vital Signs: Vital Signs - 24 hr 05/18/23 05/18/23 05/18/23 15:10 15:15 15:20 Temperature Heart Rate 117 H 112 H 110 H Heart Rate [ Brachial] Respiratory 18 14 13 Rate Blood Pressure 120/81 H 118/82 H 119/86 H Blood Pressure [Left Brachial artery] O2 Saturation 95 94 94 If not protocol : Oxygen Flow, liters/minute 05/18/23 05/18/23 05/18/23 15:25 15:30 15:35 Temperature 36.3 C L Heart Rate 108 H 104 H Heart Rate [ 104 H Brachial] Respiratory 13 13 12 Rate Blood Pressure 112/78 117/85 H Blood Pressure 117/74 [Left Brachial artery] O2 Saturation 94 94 95 If not protocol 5 : Oxygen Flow, liters/minute 05/18/23 05/18/23 05/18/23 15:45 16:00 16:15 Temperature 37.1 C 36.8 C Heart Rate 106 H 107 H 106 H Heart Rate [ 102 H Brachial] Respiratory 14 15 15 Rate Blood Pressure 116/80 138/92 H 138/92 H Blood Pressure 122/72 [Left Brachial artery] O2 Saturation 92 97 95 If not protocol 4 : Oxygen Flow, liters/minute 05/18/23 05/18/23 05/18/23 17:31 18:23 19:16 Temperature 37.1 C 36.6 C 36.7 C Heart Rate Heart Rate [ 97 103 H 92 Brachial] Respiratory 16 16 16 Rate Blood Pressure Blood Pressure 132/76 H 139/82 H 133/80 H [Left Brachial artery] O2 Saturation 95 98 97 If not protocol 4 4 4 : Oxygen Flow, liters/minute 05/19/23 05/19/23 05/19/23 00:10 05:02 08:30 Temperature 36.6 C 36.7 C 36.5 C Heart Rate Heart Rate [ 87 85 77 Brachial] Respiratory 16 16 18 Rate Blood Pressure Blood Pressure 125/77 147/80 H 118/76 [Left Brachial artery] O2 Saturation 98 97 98 If not protocol 4 4 4 : Oxygen Flow, liters/minute 05/19/23 11:50 Temperature 36.7 C Heart Rate Heart Rate [ 82 Brachial] Respiratory 18 Rate Blood Pressure Blood Pressure 123/68 [Left Brachial artery] O2 Saturation 95 If not protocol 4 : Oxygen Flow, liters/minute Oxygen O2 Source Nasal cannula I&O (Last 24 Hrs): Intake and Output Totals x24h 05/17/23 05/18/23 05/19/23 23:59 23:59 23:59 Intake Total 1100 680 Output Total 1963 901 Balance -863 -221 General: Alert, Oriented x3, Cooperative, No acute distress Neck: Other (Drain in place) Neuro: Alert, CN 2-12 Grossly Intact, Oriented Times 3 Cardiovascular: Regular rate, Normal S1, Normal S2, No murmurs Respiratory: Chest non-tender, No respiratory distress, Breath sounds nml Abdomen: Normal bowel sounds, Soft, No tenderness, No hepatospenomegaly, No masses Extremities: No clubbing, No cyanosis, No edema, Normal pulses, No tenderness/swelling - Results Results: Laboratory Results WBC 7.3 x10^3/uL (4.8-10.8) 05/19/23 05:16 RBC 3.69 10^6/uL (4.70-6.10) L 05/19/23 05:16 Hgb 11.4 g/dL (14.0-18.0) L 05/19/23 05:16 Hct 35.2 % (42.0-52.0) L 05/19/23 05:16 MCV 95.4 fL (80.0-94.0) H 05/19/23 05:16 MCH 30.9 pg (27.0-31.0) 05/19/23 05:16 MCHC 32.4 g/dL (32.0-36.0) 05/19/23 05:16 RDW 15.7 % (12.0-15.0) H 05/19/23 05:16 Plt Count 182 10^3/uL (130-450) 05/19/23 05:16 MPV 10.6 fL (7.4-11.4) 05/19/23 05:16 Neut # (Auto) 5.1 10^3/uL (1.5-6.6) 05/19/23 05:16 Lymph # (Auto) 1.6 10^3/uL (1.5-3.5) 05/19/23 05:16 [place] # (Auto) 0.5 10^3/uL (0.0-1.0) 05/19/23 05:16 Eos # (Auto) 0.1 10^3/uL (0.0-0.7) 05/19/23 05:16 Baso # (Auto) 0.1 10^3/uL (0.0-0.1) 05/19/23 05:16 Absolute Nucleated RBC 0.00 x10^3/uL 05/19/23 05:16 Nucleated RBC % 0.0 /100WBC 05/19/23 05:16 Sodium 137 mmol/L (135-145) 05/19/23 05:16 Potassium 4.0 mmol/L (3.5-4.5) 05/19/23 05:16 Chloride 103 mmol/L (101-111) 05/19/23 05:16 Carbon Dioxide 28 mmol/L (21-32) 05/19/23 05:16 Anion Gap 6.0 (6-13) 05/19/23 05:16 BUN 10 mg/dL (6-20) 05/19/23 05:16 Creatinine 0.6 mg/dL (0.6-1.3) 05/19/23 05:16 Estimated GFR (MDRD) 137 (>89) 05/19/23 05:16 Glucose 102 mg/dL (74-104) 05/19/23 05:16 Calcium 8.5 mg/dL (8.5-10.3) 05/19/23 05:16 - Procedures Procedures: Procedures (03/17/22) EXCISION OF POST NECK SUBCU/FASCIA, OPEN APPROACH (03/16/23) EXTRACTION OF UPPER TOOTH, MULTIPLE, EXTERNAL APPROACH (03/16/23) INSERTION OF INFUSION DEV INTO SUP VENA CAVA, PERC APPROACH (12/12/21) INSERTION OF INT FIX INTO R MAXILLA, OPEN APPROACH (03/16/23) REMOVAL OF INT FIX FROM FACIAL BONE, OPEN APPROACH (03/16/23) REPAIR LOWER JAW, EXTERNAL APPROACH (12/12/21) REPLACEMENT OF LEFT MANDIBLE WITH SYNTH SUB, OPEN APPROACH (12/12/21) RESECTION OF LEFT MANDIBLE, OPEN APPROACH (12/12/21) RESECTION OF LOWER TOOTH, MULTIPLE, OPEN APPROACH (12/12/21) Current Medications - Current Medications Current Medications: Active Medications Generic Name Dose Route Start Last Admin Trade Name Freq PRN Reason Stop Dose Admin Amlodipine Besylate 10 mg 05/19/23 09:00 05/19/23 09:10 Amlodipine 5 Mg Tablet PO 10 mg DAILY BRIGHT Administration Chlorhexidine Gluconate 15 ml 05/18/23 21:00 05/19/23 09:10 Chlorhexidine Gluconate 15 Ml Udc PO 15 ml BID BRIGHT Administration Omadacycline 100 mg/ Sodium 100 mls @ 200 mls/hr 05/18/23 17:00 05/19/23 1 3:35 Chloride IV Infused DAILY BRIGHT Infusion Acetaminophen 1,000 mg in 100 mls @ 400 mls/hr 05/18/23 21:08 05/19/23 05:21 Acetaminophen IV 05/19/23 21:08 Infused Q8HR PRN Infusion Moderate Pain (Level 4-6) Multivitamins 10 ml/ Thiamine 1,011.2 mls @ 100 mls/hr 05/19/23 09:00 05/19/23 09:50 HCl 100 mg/ Folic Acid 1 mg/ IV 05/19/23 19:06 100 mls/hr Sodium Chloride ONCE ONE Administration Ibuprofen 600 mg 05/19/23 12:00 05/19/23 11:50 Ibuprofen 600 Mg Tablet PO 600 mg Q6HR BRIGHT Administration Lorazepam 1 mg 05/18/23 17:09 Lorazepam 2 Mg/Ml Vial IVP Q30M PRN CIWA >8 Protocol Ondansetron HCl 4 mg 05/18/23 15:37 Ondansetron 4 Mg/2 Ml Vial IVP Q6HR PRN Nausea / Vomiting Oxcarbazepine 900 mg 05/18/23 21:00 05/19/23 09:10 Oxcarbazepine 150 Mg Tablet PO 900 mg BID BRIGHT Administration Oxycodone HCl 5 mg 05/19/23 09:48 05/19/23 11:50 Oxycodone 5 Mg Tablet PO 5 mg Q4HR PRN Administration Moderate Pain (Level 4-6) OXcarbazepine [Trileptal] 900 mg PO BID 12/12/21 amLODIPine [Norvasc] 10 mg PO DAILY 03/17/22 Cholecalciferol [Vitamin D3] 50 mcg PO DAILY 03/13/23 Acetaminophen with Codeine [Acetaminophen-Cod #3 Tablet] 1 each PO Q4H PRN 05/07/23 oxyCODONE [Roxicodone] 5 mg PO Q4-6H PRN 05/07/23
[2023-05-19] MEDS: ACETAMINOPHEN 325 MG TABLET PO PRN (19:53)
[2023-05-20] MEDS: oxyCODONE 5 MG TABLET PO PRN ×5 (00:35→16:43)
[2023-05-20 05:41] LABS: BASOPHILS # (AUTO) 0.1 10^3/uL (0.0-0.1); BASOPHILS % (AUTO) 0.9 %; EOSINOPHILS % (AUTO) 15.1 %; HCT - HEMATOCRIT 33.6 % (42.0-52.0); HGB - HEMOGLOBIN 10.6 g/dL (14.0-18.0); LYMPHOCYTES # (AUTO) 1.8 10^3/uL (1.5-3.5); MEAN CORPUSCULAR HEMOGLOBIN 31.5 pg (27.0-31.0); MEAN CORPUSCULAR HGB CONC 31.5 g/dL (32.0-36.0); MEAN CORPUSCULAR VOLUME 99.7 fL (80.0-94.0); MEAN PLATELET VOLUME 10.4 fL (7.4-11.4); MONOCYTES # (AUTO) 0.4 10^3/uL (0.0-1.0); MONOCYTES % (AUTO) 5.5 %; NEUTROPHILS # (AUTO) 3.2 10^3/uL (1.5-6.6); NEUTROPHILS % (AUTO) 50.3 %; PLT - PLATELET COUNT 154 10^3/uL (130-450); RED BLOOD COUNT 3.37 10^6/uL (4.70-6.10); RED CELL DISTRIBUTION WIDTH 15.6 % (12.0-15.0); WHITE BLOOD COUNT 6.4 x10^3/uL (4.8-10.8)
[2023-05-20] MEDS: IBUPROFEN 600 MG TABLET PO SCH ×3 (06:03→17:55)
[2023-05-20 06:22] LABS: CALCIUM 8.5 mg/dL (8.5-10.3); CREATININE 0.5 mg/dL (0.6-1.3); POTASSIUM 3.5 mmol/L (3.5-4.5)
[2023-05-20] MEDS: ACETAMINOPHEN 325 MG TABLET PO PRN ×2 (07:35→16:42)
[2023-05-20] MEDS: amLODIPine 5 MG TABLET PO SCH (08:22)
[2023-05-20] MEDS: OXcarbazepine 150 MG TABLET PO SCH (08:22)
[2023-05-20] MEDS: SODIUM CHLORIDE 0.9% IV SCH (08:23)
[2023-05-20] MEDS: [UNRECOGNIZED DRUG - OTHER] IV SCH (08:23)
[2023-05-20] MEDS: CHLORHEXIDINE GLUCONATE 15 ML UDC PO SCH (08:23)
--- NOTE | 2023-05-20 08:57 | PROVIDER PROGRESS NOTE ---
Assessment/Plan - Problem List (1) Acute osteomyelitis of mandible Assessment/Plan: (1) Acute osteomyelitis of mandible Conclusion/Plan: -- Postop day 2. Patient had surgery on his jaw on 05/18 with no postoperative complications. Minimal drainage in [place]. -- Continue omadacycline 100 mg IV daily as recommended by Dr. Mccabe, infectious disease. -- Anticipate he may discharge on today. Patient is medically stable. (2) Seizure Conclusion/Plan: --Currently on oxcarbazepine at home. Resume medication when patient is reliably able to take orals. In the past medication has been crushed up and he was able to drink through a straw. --Ativan will be ordered in the meantime. -- Seizure-free since 2018. (3) JAN (obstructive sleep apnea) Conclusion/Plan: --Patient does not use a CPAP device at home. (4) Alcohol consumption binge drinking Conclusion/Plan: -- reports he had some alcohol before he came to the hospital. Not scoring on CIWA. (5) HTN (hypertension) Conclusion/Plan: -- Continue home antihypertensives. BP stable. (6) Opiate dependence Conclusion/Plan: --He is on oral pain medications. Not using narcotics. Patient is medically stable for discharge. Will need to continue outpatient omadacycline at the infusion center. Continued follow-up with Dr. Mccabe, ID. - Current Meds Current Meds: Current Medications Generic Name Dose Route Start Last Admin Trade Name Freq PRN Reason Stop Dose Admin Acetaminophen 650 mg 05/19/23 18:50 05/20/23 07:35 Acetaminophen 325 Mg Tablet PO 650 mg Q8H PRN Administration Pain or Fever > 38C (100.4F) Amlodipine Besylate 10 mg 05/19/23 09:00 05/20/23 08:22 Amlodipine 5 Mg Tablet PO 10 mg DAILY BRIGHT Administration Chlorhexidine Gluconate 15 ml 05/18/23 21:00 05/20/23 08:23 Chlorhexidine Gluconate 15 Ml Udc PO 15 ml BID BRIGHT Administration Omadacycline 100 mg/ Sodium 100 mls @ 200 mls/hr 05/18/23 17:00 05/20/23 08:23 Chloride IV 200 mls/hr DAILY BRIGHT Administration Ibuprofen 600 mg 05/19/23 12:00 05/20/23 06:03 Ibuprofen 600 Mg Tablet PO 600 mg Q6HR BRIGHT Administration Lactobacillus Rhamnosus 1 cap 05/20/23 09:00 05/20/23 08:24 Lactobacillus Rhamnosus Gg Capsule PO 1 cap DAILY BRIGHT Administration Oxcarbazepine 900 mg 05/18/23 21:00 05/20/23 08:22 Oxcarbazepine 150 Mg Tablet PO 900 mg BID BRIGHT Administration Oxycodone HCl 5 mg 05/19/23 09:48 05/20/23 04:53 Oxycodone 5 Mg Tablet PO 5 mg Q4HR PRN Administration Moderate Pain (Level 4-6) - Lab Result Fish Bone Diagrams: 05/20/23 05:20 05/20/23 05:20 - Additional Planning My Orders: My Active Orders 05/19/23 09:00 amLODIPine [Norvasc] 10 mg PO DAILY 05/19/23 18:50 Acetaminophen [Tylenol] 650 mg PO Q8H PRN 05/20/23 09:00 Lactobacillus Rhamnosus GG [Culturelle] 1 cap PO DAILY 05/21/23 05:00 BMP - BASIC METABOLIC PANEL [CHEM] DAILYLAB CBC [CBC - COMP BLD CT W/AUTO DIFF] [HEME] DAILYLAB 05/22/23 05:00 BMP - BASIC METABOLIC PANEL [CHEM] DAILYLAB CBC [CBC - COMP BLD CT W/AUTO DIFF] [HEME] DAILYLAB 05/23/23 05:00 BMP - BASIC METABOLIC PANEL [CHEM] DAILYLAB CBC [CBC - COMP BLD CT W/AUTO DIFF] [HEME] DAILYLAB Subjective - Subjective Patient Reports: Feeling Better, Resting Comfortably, No Complaints Objective Vital Signs: Vital Signs - 24 hr 05/19/23 05/19/23 05/19/23 11:50 15:56 19:43 Temperature 36.7 C 36.5 C 36.6 C Heart Rate [ 82 81 77 Brachial] Respiratory 18 20 18 Rate Blood Pressure 123/68 117/81 H 117/68 [Left Brachial artery] O2 Saturation 95 95 98 If not protocol 4 2 2 : Oxygen Flow, liters/minute 05/19/23 05/19/23 05/19/23 20:00 20:29 23:34 Temperature 36.6 C Heart Rate [ 82 Brachial] Respiratory 18 Rate Blood Pressure 111/84 H [Left Brachial artery] O2 Saturation 97 97 96 If not protocol : Oxygen Flow, liters/minute 05/20/23 05/20/23 06:10 07:27 Temperature 36.5 C 36.4 C L Heart Rate [ 74 73 Brachial] Respiratory 16 18 Rate Blood Pressure 137/74 H 116/67 [Left Brachial artery] O2 Saturation 94 94 If not protocol : Oxygen Flow, liters/minute Oxygen O2 Source Room air I&O (Last 24 Hrs): Intake and Output Totals x24h 05/18/23 05/19/23 05/20/23 23:59 23:59 23:59 Intake Total 1100 2411.2 250 Output Total 1963 1306 1 Balance -863 1105.2 249 General: Alert, Oriented x3, Cooperative, No acute distress Neuro: Alert, CN 2-12 Grossly Intact, Oriented Times 3 Cardiovascular: Regular rate, Normal S1, Normal S2, No murmurs Respiratory: Chest non-tender, No respiratory distress, Breath sounds nml Abdomen: Normal bowel sounds, Soft, No tenderness, No hepatospenomegaly, No masses Extremities: No clubbing, No cyanosis, No edema, Normal pulses, No tenderness/swelling - Results Results: Laboratory Results WBC 6.4 x10^3/uL (4.8-10.8) 05/20/23 05:20 RBC 3.37 10^6/uL (4.70-6.10) L 05/20/23 05:20 Hgb 10.6 g/dL (14.0-18.0) L 05/20/23 05:20 Hct 33.6 % (42.0-52.0) L 05/20/23 05:20 MCV 99.7 fL (80.0-94.0) H 05/20/23 05:20 MCH 31.5 pg (27.0-31.0) H 05/20/23 05:20 MCHC 31.5 g/dL (32.0-36.0) L 05/20/23 05:20 RDW 15.6 % (12.0-15.0) H 05/20/23 05:20 Plt Count 154 10^3/uL (130-450) 05/20/23 05:20 MPV 10.4 fL (7.4-11.4) 05/20/23 05:20 Neut # (Auto) 3.2 10^3/uL (1.5-6.6) 05/20/23 05:20 Lymph # (Auto) 1.8 10^3/uL (1.5-3.5) 05/20/23 05:20 [place] # (Auto) 0.4 10^3/uL (0.0-1.0) 05/20/23 05:20 Eos # (Auto) 1.0 10^3/uL (0.0-0.7) H 05/20/23 05:20 Baso # (Auto) 0.1 10^3/uL (0.0-0.1) 05/20/23 05:20 Absolute Nucleated RBC 0.00 x10^3/uL 05/20/23 05:20 Nucleated RBC % 0.0 /100WBC 05/20/23 05:20 Sodium 139 mmol/L (135-145) 05/20/23 05:20 Potassium 3.5 mmol/L (3.5-4.5) 05/20/23 05:20 Chloride 107 mmol/L (101-111) 05/20/23 05:20 Carbon Dioxide 26 mmol/L (21-32) 05/20/23 05:20 Anion Gap 6.0 (6-13) 05/20/23 05:20 BUN 8 mg/dL (6-20) 05/20/23 05:20 Creatinine 0.5 mg/dL (0.6-1.3) L 05/20/23 05:20 Estimated GFR (MDRD) 168 (>89) 05/20/23 05:20 Glucose 91 mg/dL (74-104) 05/20/23 05:20 Calcium 8.5 mg/dL (8.5-10.3) 05/20/23 05:20 - Procedures Procedures: Procedures (03/17/22) EXCISION OF POST NECK SUBCU/FASCIA, OPEN APPROACH (03/16/23) EXTRACTION OF UPPER TOOTH, MULTIPLE, EXTERNAL APPROACH (03/16/23) INSERTION OF INFUSION DEV INTO SUP VENA CAVA, PERC APPROACH (12/12/21) INSERTION OF INT FIX INTO R MAXILLA, OPEN APPROACH (03/16/23) REMOVAL OF INT FIX FROM FACIAL BONE, OPEN APPROACH (03/16/23) REPAIR LOWER JAW, EXTERNAL APPROACH (12/12/21) REPLACEMENT OF LEFT MANDIBLE WITH SYNTH SUB, OPEN APPROACH (12/12/21) RESECTION OF LEFT MANDIBLE, OPEN APPROACH (12/12/21) RESECTION OF LOWER TOOTH, MULTIPLE, OPEN APPROACH (12/12/21) Current Medications - Current Medications Current Medications: Active Medications Generic Name Dose Route Start Last Admin Trade Name Freq PRN Reason Stop Dose Admin Acetaminophen 650 mg 05/19/23 18:50 05/20/23 07:35 Acetaminophen 325 Mg Tablet PO 650 mg Q8H PRN Administration Pain or Fever > 38C (100.4F) Amlodipine Besylate 10 mg 05/19/23 09:00 05/20/23 08:22 Amlodipine 5 Mg Tablet PO 10 mg DAILY BRIGHT Administration Chlorhexidine Gluconate 15 ml 05/18/23 21:00 05/20/23 08:23 Chlorhexidine Gluconate 15 Ml Udc PO 15 ml BID BRIGHT Administration Omadacycline 100 mg/ Sodium 100 mls @ 200 mls/hr 05/18/23 17:00 05/20/23 08:23 Chloride IV 200 mls/hr DAILY BRIGHT Administration Ibuprofen 600 mg 05/19/23 12:00 05/20/23 06:03 Ibuprofen 600 Mg Tablet PO 600 mg Q6HR BRIGHT Administration Lactobacillus Rhamnosus 1 cap 05/20/23 09:00 05/20/23 08:24 Lactobacillus Rhamnosus Gg Capsule PO 1 cap DAILY BRIGHT Administration Lorazepam 1 mg 05/18/23 17:09 Lorazepam 2 Mg/Ml Vial IVP Q30M PRN CIWA >8 Protocol Ondansetron HCl 4 mg 05/18/23 15:37 Ondansetron 4 Mg/2 Ml Vial IVP Q6HR PRN Nausea / Vomiting Oxcarbazepine 900 mg 05/18/23 21:00 05/20/23 08:22 Oxcarbazepine 150 Mg Tablet PO 900 mg BID BRIGHT Administration Oxycodone HCl 5 mg 05/19/23 09:48 05/20/23 04:53 Oxycodone 5 Mg Tablet PO 5 mg Q4HR PRN Administration Moderate Pain (Level 4-6) OXcarbazepine [Trileptal] 900 mg PO BID 12/12/21 amLODIPine [Norvasc] 10 mg PO DAILY 03/17/22 Cholecalciferol [Vitamin D3] 50 mcg PO DAILY 03/13/23 Acetaminophen with Codeine [Acetaminophen-Cod #3 Tablet] 1 each PO Q4H PRN 05/07/23 oxyCODONE [Roxicodone] 5 mg PO Q4-6H PRN 05/07/23
[2023-05-20] MEDS ORDERED: LACTOBACILLUS RHAMNOSUS GG CAPSULE PO SCH (09:00)
[2023-05-20 16:16] VITALS: O2SAT 96
--- NOTE | 2023-05-20 17:53 | PROVIDER PROGRESS NOTE ---
Subjective - General Admit Date: 05/18/23 Procedure Date: 05/18/23 Post Op Days: 2 Procedure Performed: Reconstruction of the L TMJ and mandible with prosthetic mandible - Review of Systems Wound/Incisions: positive: Healing well, Drainage (Moderate SS Dressing applied by nursing, intact) Drain Type: Rolf Drain Output Description: Serosanguinous Approximate mls Output: Less than 10 mL General: negative: Fever, Weakness, Fatigue HEENT: positive: Headaches, Other (L Mandible pain, incision pain.) Pulmonary: positive: Sputum. negative: Shortness of breath, Cough Cardiovascular: positive: No symptoms Gastrointestinal: positive: No symptoms All Other Systems: positive: Reviewed and negative Objective - Patient Data Reviewed Vital Signs: Yes Vital Signs: Vital Signs x48h Temp Pulse Resp BP Pulse Ox 05/20/23 16:36 36.5 C 16 05/20/23 16:07 35.6 C L 75 10 L 109/76 96 05/20/23 11:20 36.4 C L 72 18 105/66 97 Weight: Weight 05/18/23 05/19/23 05/20/23 23:59 23:59 23:59 Weight (kg) 84.7 kg Intake & Output: Intake and Output Totals x24h 05/18/23 05/19/23 05/20/23 23:59 23:59 23:59 Intake Total 1100 2411.2 1550 Output Total 1963 1306 1 Balance -863 1105.2 1549 - Lab Results Lab Results: 05/20/23 05:20 05/20/23 05:20 Other Lab Results: Lab Results x24hrs 05/20/23 05/20/23 Range/Units 05:20 05:20 WBC 6.4 (4.8-10.8) x10^3/uL RBC 3.37 L (4.70-6.10) 10^6/uL Hgb 10.6 L (14.0-18.0) g/dL Hct 33.6 L (42.0-52.0) % MCV 99.7 H (80.0-94.0) fL MCH 31.5 H (27.0-31.0) pg MCHC 31.5 L (32.0-36.0) g/dL RDW 15.6 H (12.0-15.0) % Plt Count 154 (130-450) 10^3/uL MPV 10.4 (7.4-11.4) fL Neut # (Auto) 3.2 (1.5-6.6) 10^3/uL Lymph # (Auto) 1.8 (1.5-3.5) 10^3/uL [place] # (Auto) 0.4 (0.0-1.0) 10^3/uL Eos # (Auto) 1.0 H (0.0-0.7) 10^3/uL Baso # (Auto) 0.1 (0.0-0.1) 10^3/uL Absolute Nucleated RBC 0.00 x10^3/uL Nucleated RBC % 0.0 /100WBC Sodium 139 (135-145) mmol/L Potassium 3.5 (3.5-4.5) mmol/L Chloride 107 (101-111) mmol/L Carbon Dioxide 26 (21-32) mmol/L Anion Gap 6.0 (6-13) BUN 8 (6-20) mg/dL Creatinine 0.5 L (0.6-1.3) mg/dL Estimated GFR (MDRD) 168 (>89) Glucose 91 (74-104) mg/dL Calcium 8.5 (8.5-10.3) mg/dL - Current Medications Current Medications: Current Medications Generic Name Dose Route Start Last Admin Trade Name Freq PRN Reason Stop Dose Admin Acetaminophen 650 mg 05/19/23 18:50 05/20/23 16:42 Acetaminophen 325 Mg Tablet PO 650 mg Q8H PRN Administration Pain or Fever > 38C (100.4F) Amlodipine Besylate 10 mg 05/19/23 09:00 05/20/23 08:22 Amlodipine 5 Mg Tablet PO 10 mg DAILY BRIGHT Administration Chlorhexidine Gluconate 15 ml 05/18/23 21:00 05/20/23 08:23 Chlorhexidine Gluconate 15 Ml Udc PO 15 ml BID BRIGHT Administration Omadacycline 100 mg/ Sodium 100 mls @ 200 mls/hr 05/18/23 17:00 05/20/23 08:53 Chloride IV Infused DAILY BRIGHT Infusion Ibuprofen 600 mg 05/19/23 12:00 05/20/23 12:57 Ibuprofen 600 Mg Tablet PO 600 mg Q6HR BRIGHT Administration Lactobacillus Rhamnosus 1 cap 05/20/23 09:00 05/20/23 08:24 Lactobacillus Rhamnosus Gg Capsule PO 1 cap DAILY BRIGHT Administration Oxcarbazepine 900 mg 05/18/23 21:00 05/20/23 08:22 Oxcarbazepine 150 Mg Tablet PO 900 mg BID BRIGHT Administration Oxycodone HCl 5 mg 05/19/23 09:48 05/20/23 16:43 Oxycodone 5 Mg Tablet PO 5 mg Q4HR PRN Administration Moderate Pain (Level 4-6) - Physical Exam Wound/Incisions: positive: Healing well General Appearance: positive: No acute distress, Alert Eyes Bilateral: positive: PERRL ENT: positive: Other (SOM 15mm. Able to occlude the dentition fairly well. No exposure of the hardware intraorally) Neck: positive: Other (Moderate postop edema L buccal space. Incision c,d,i) Respiratory: positive: Chest non-tender, No respiratory distress Cardiovascular: positive: Regular rate & rhythm Abdomen: positive: Non-tender Impression/Plan - Problem List Problem List: 62 yo M POD #2 s/p: Removal of L mandible proximal segment w/ disarticulation of the TMJ Prosthetic reconstruction of the L TMJ and mandibular body Removal of superficial hardware Pain well controlled Taking good PO Much better recovery after this procedure than after the previous surgery Plan: OK for d/c to home Set up for omadacycline tomorrow in the infusion clinic tomorrow F/u in my office tomorrow after antibiotics Please call w/ any questions [phone]
[2023-05-20 18:50] VITALS: BP 148/82
== END 2023-05-20 19:00 | disposition home or self-care (01) | DRG 141 ==
LOC: MS2 06:33
PROVIDERS: ADMIT Dentist Oral and Maxillofacial Surgery; ATTEND Dentist Oral and Maxillofacial Surgery
PROC: 0RPD04Z Removal of Internal Fixation Device from Left Temporomandibular Joint, Open Approach (ICD-10-PCS; 2023-05-18)
PROC: 0RB Upper Joints, Excision (ICD-10-PCS; 2023-05-18)
PROC: 0NUV0JZ Supplement Left Mandible with Synthetic Substitute, Open Approach (ICD-10-PCS; 2023-05-18)
PROC: 0RRD0JZ Replacement of Left Temporomandibular Joint with Synthetic Substitute, Open Approach (ICD-10-PCS; principal; 2023-05-18 07:30)
DX: M27.2 Inflammatory conditions of jaws (principal); F11.20 Opioid dependence, uncomplicated; G47.33 Obstructive sleep apnea (adult) (pediatric); I10 Essential (primary) hypertension; G40.909 Epilepsy, unspecified, not intractable, without status epilepticus; Z87.891 Personal history of nicotine dependence
CPT/HCPCS: 36415; 80048; 85025; A9270; J0121; J0131; J1170; J1335; J2372; J3370; J3411; J7120

== ENCOUNTER 2023-05-28 08:00 | Outpatient (CLI) | payer OTHER | END 2023-05-28 23:59 | disposition home or self-care (01) | LOC: LAB.R 08:00 | PROVIDERS: ATTEND Dentist Oral and Maxillofacial Surgery | DX: R22.1 Localized swelling, mass and lump, neck (principal) | CPT/HCPCS: 87070; 87205 ==

== ENCOUNTER 2023-07-17 13:53 | Outpatient (CLI) | payer OTHER ==
--- NOTE | 2023-07-17 21:04 | Ultrasound Report ---
PROCEDURE: Arterial Duplex Lwr Ext LT INDICATIONS: PVD TECHNIQUE: Color and pulse Doppler interrogation was performed of the left lower extremity arterial system, with image documentation. COMPARISON: None FINDINGS: Common femoral artery: 51 cm/sec, with monophasic flow. Deep femoral artery: 24 cm/sec, with monophasic flow. Proximal superficial femoral artery: 33 cm/sec, with monophasic flow. Mid superficial femoral artery: 45 cm/sec, with monophasic flow. Distal superficial femoral artery: 34 cm/sec, with monophasic flow. Popliteal artery: 24 cm/sec, with monophasic flow. Posterior tibial artery: No flow Anterior tibial artery/dorsalis pedis: 16/19 cm/sec, with monophasic flow. Marques-scale imaging description: Scattered atherosclerotic plaque throughout the left lower extremity arterial vasculature IMPRESSION: 1.Monophasic waveforms throughout the left lower extremity arterial vasculature suggestive of aortoil iac inflow disease. 2.Occluded left posterior tibial artery. Recommend a CTA bilateral lower extremity runoff for further evaluation. Reviewed by: Basilio Ramirez MD on 07/17/2023 9:02 PM PST Approved by: Basilio Ramirez MD on 07/17/2023 9:02 PM PST Station ID: [id number]
== END 2023-07-17 13:54 | disposition home or self-care (01) ==
LOC: DI 13:53
PROVIDERS: ATTEND Student in an Organized Health Care Education/Training Program
DX: R20.2 Paresthesia of skin (principal); I77.1 Stricture of artery

== ENCOUNTER 2023-11-08 12:08 | Day surgery (SDC) | payer OTHER ==
[~2023-11-08 12:08] MED LIST: ceFAZolin 2 GM VIAL ONE
[2023-11-08] MEDS ORDERED: BUPIVACAINE 0.25% PF 30 ML VIAL ONE (12:11)
[2023-11-08] MEDS ORDERED: LIDOCAINE-MPF 1% 30 ML VIAL ONE (12:11)
[2023-11-08] MEDS: LACTATED RINGERS 1,000 ML IV ONE (12:19)
[2023-11-08 12:36] VITALS: BP 135/98; O2SAT 96
--- NOTE | 2023-11-08 12:49 | HISTORY & PHYSICAL EXAMINATION ---
Chief Complaint - Chief Complaint Chief Complaint: here for hernia surgery History of Present Illness - History Obtained From Records Reviewed: yes History obtained from: pt Exam Limitations: none - History of Present Illness HPI Comment/Other: large symptomatic right inguinal hernia. 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 A 27-year-old daughter is healthy, a son in an auto accident.), Brother: Alive and Well Living Situation: With spouse/s.o. 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 He smoked about 1 pack/day of cigarettes. He used to drink between 0 to a sixpack of beer a day, then 1-8 beers 3 times a week, and says he has never had alcohol withdrawal. - Substance History Use: Uses substance without health or social issues: Tobacco, Alcohol - POLST Patient has POLST: No Meds/Allgy - Home Medications Home Medications: Ambulatory Orders Medication Instructions Recorded Confirmed OXcarbazepine [Trileptal] 900 mg PO BID 12/12/21 11/08/23 amLODIPine [Norvasc] 10 mg PO DAILY 03/17/22 11/08/23 Cholecalciferol [Vitamin D3] 25 mcg PO DAILY 03/13/23 11/08/23 Acetaminophen [Tylenol] 650 mg PO Q6H PRN 11/05/23 11/08/23 Cyclobenzaprine [Flexeril] 10 mg PO TID PRN 11/05/23 11/05/23 Gabapentin [Neurontin] 300 mg PO DAILY 11/05/23 11/08/23 Magnesium Oxide [Magnesium] 500 mg PO DAILY 11/05/23 11/08/23 cilostazoL [Cilostazol] 100 mg PO BID 11/05/23 11/08/23 - Allergies Allergies/Adverse Reactions: Allergies Allergy/AdvReac Type Severity Reaction Status Date / Time No Known Drug Allergies Allergy Verified 11/08/23 12:43 Review of Systems - Other Findings Other Findings: 10 pt ros as above otherwise unremarkable Exam - Vital Signs Vital Signs: Vital Signs x48h Temp Pulse Resp BP Pulse Ox 11/08/23 12:20 36.7 C 97 13 135/98 H 96 - Physical Exam General Appearance: positive: Alert Eyes Bilateral: positive: PERRL, EOMI ENT: positive: No signs of dehydration Neck: positive: No JVD Respiratory: positive: No respiratory distress Cardiovascular: positive: Regular rate & rhythm Abdomen: positive: Other (right inguinal hernia present) Neurologic/Psychiatric: positive: Oriented x3 Conclusion/Plan - Problem List (1) Inguinal hernia Conclusion/Plan: large symptomatic right inguinal hernia. plan open repair with mesh. parq held and consent obtained
--- NOTE | 2023-11-08 13:24 | ANESTHESIA ---
Pre-Anesthesia VS, & Labs - Diagnosis inguinal hernia - Procedure inguinal hernia repair Vital Signs: Temp Pulse Resp BP Pulse Ox O2 Flow Rate 36.7 C 97 13 135/98 H 96 11/08/23 12:20 11/08/23 12:20 11/08/23 12:20 11/08/23 12:20 11/08/23 12:20 Height: 5 ft 9 in Weight (kg): 94 kg Body Mass Index: 30.6 BMI Classification: Obese - NPO >8 hours Home Medications and Allergies Home Medications: Ambulatory Orders Acetaminophen [Tylenol] 650 mg PO Q6H PRN 11/05/23 Cyclobenzaprine [Flexeril] 10 mg PO TID PRN 11/05/23 Gabapentin [Neurontin] 300 mg PO DAILY 11/05/23 Magnesium Oxide [Magnesium] 500 mg PO DAILY 11/05/23 cilostazoL [Cilostazol] 100 mg PO BID 11/05/23 OXcarbazepine [Trileptal] 900 mg PO BID 12/12/21 amLODIPine [Norvasc] 10 mg PO DAILY 03/17/22 Cholecalciferol [Vitamin D3] 25 mcg PO DAILY 03/13/23 Acetaminophen [Tylenol] 650 mg PO Q6H PRN 11/05/23 Cyclobenzaprine [Flexeril] 10 mg PO TID PRN 11/05/23 Gabapentin [Neurontin] 300 mg PO DAILY 11/05/23 Magnesium Oxide [Magnesium] 500 mg PO DAILY 11/05/23 cilostazoL [Cilostazol] 100 mg PO BID 11/05/23 Allergies/Adverse Reactions: Allergies Allergy/AdvReac Type Severity Reaction Status Date / Time No Known Drug Allergies Allergy Verified 11/08/23 12:43 Anes History & Medical History - Anesthetic History Anesthesia Complications: reports: No previous complications, Other-see comment (multiple facial, jaw reconstruction surgeries, leading to likely difficult airway) Family history of Anesthesia Complications: Denies Family history of Malignant Hyperthermia: Denies - Medical History Cardiovascular: reports: Hypertension, Peripheral Vascular Disease, Other (claudication to BLE, not a surgical candidate per vascular surgeon, medically managed) Pulmonary: reports: Sleep apnea Gastrointestinal: reports: None Urinary: reports: Kidney stones Neuro: reports: Seizure disorder Musculoskeletal: reports: Chronic back pain Endocrine/Autoimmune: reports: None Blood Disorders: reports: None Skin: reports: None Smoking Status: Former smoker Psychosocial: reports: No issues indicated - Surgical History Eyes Ears Nose Throat (EENT): reports: Other (multipl facial/jaw reconstruction surgeries) Urologic: reports: Ureterolithotomy (stones) Exam General: Alert, Oriented x3, Cooperative Dental: Poor dentition, Other Mouth Openin Fingerbreadth Neck Mobility: Normal Mallampati classification: III Thyromental Distance: 4-6 cm Respiratory: Lungs clear Cardiovascular: Regular rate Plan Anesthesia Type: General, Total IV Consent for Procedure(s) Verified and Reviewed: Yes Code Status: Attempt Resuscitation ASA classification: 3-Severe systemic disease Is this case an emergency?: No
--- NOTE | 2023-11-08 13:26 | CONSULTATION NOTE ---
Consultation Report: discussed with Dr Tom pt's current medications and new antiplatelet started 1 month ago (not held for surgery). Dr Tom unaware, discussed with pt. Will reschedule pt after holding cilostazol for 5 days.
== END 2023-11-08 12:09 | disposition home or self-care (01) ==
LOC: SDS 12:08
PROVIDERS: ATTEND Surgery
DX: K40.90 Unilateral inguinal hernia, without obstruction or gangrene, not specified as recurrent (principal); Z53.09 Procedure and treatment not carried out because of other contraindication

== ENCOUNTER 2024-01-16 09:02 | Emergency (ER) | payer OTHER ==
--- NOTE | 2024-01-16 09:07 | ED Physician Documentation ---
PD HPI SEIZURE - Stated complaint Stated Complaint: SZ - History obtained from History obtained from: Patient, Family, EMS - History of Present Illness Timing - onset: Today Witnessed: Witnessed Number of seizures: Single, Lasted minutes (>15). No: Recovered between seizure Description of seizure activity: Generalized Injury during seizure: None History of seizures: Known seizure disorder Contributing factors: No: Off meds, Out of meds, Low blood sugar Review of Systems Unable to obtain: AMS, Other (info from family) Constitutional: denies: Fever Respiratory: denies: Cough GI: denies: Vomiting, Diarrhea PD PAST MEDICAL HISTORY - Past Medical History Cardiovascular: Hypertension, Peripheral Vascular Disease, Other (claudication to BLE, not a surgical candidate per vascular surgeon, medically managed) Respiratory: Sleep apnea Neuro: Seizure disorder Endocrine/Autoimmune: None GI: None 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 : Kidney stones HEENT: Chronic vision loss Psych: None Musculoskeletal: Chronic back pain Derm: None - Past Surgical History Past Surgical History: Yes HEENT: Other (multipl facial/jaw reconstruction surgeries) - Present Medications Home Medications: Ambulatory Orders Medication Instructions Recorded Confirmed OXcarbazepine [Trileptal] 900 mg PO BID 12/12/21 11/08/23 amLODIPine [Norvasc] 10 mg PO DAILY 03/17/22 11/08/23 Cholecalciferol [Vitamin D3] 25 mcg PO DAILY 03/13/23 11/08/23 Acetaminophen [Tylenol] 650 mg PO Q6H PRN 11/05/23 11/08/23 Cyclobenzaprine [Flexeril] 10 mg PO TID PRN 11/05/23 11/05/23 Gabapentin [Neurontin] 300 mg PO DAILY 11/05/23 11/08/23 Magnesium Oxide [Magnesium] 500 mg PO DAILY 11/05/23 11/08/23 cilostazoL [Cilostazol] 100 mg PO BID 11/05/23 11/08/23 - Allergies Allergies/Adverse Reactions: Allergies Allergy/AdvReac Type Severity Reaction Status Date / Time No Known Drug Allergies Allergy Verified 01/16/24 09:08 - Social History Does the pt smoke?: Yes Smoking Status: Former smoker Does the pt drink ETOH?: Yes Does the pt have substance abuse?: No - Immunizations Immunizations are current?: Yes Immunizations: TDAP >10years/unknown - POLST Patient has POLST: No PD ED PE NORMAL - Vitals Vital signs reviewed: Yes - General General: Well developed/nourished. No: Alert and oriented X 3 - HEENT HEENT: Atraumatic - Neck Neck: Supple, no meningeal sign, No adenopathy - Cardiac Cardiac: RRR, No murmur - Respiratory Respiratory: Clear bilaterally - Abdomen Abdomen: Soft, Non distended - Derm Derm: Normal color, Warm and dry - Extremities Extremities: No edema - Neuro Neuro: No: Alert and oriented X 3 Results - Vitals Vitals: Vital Signs - 24 hr 01/16/24 01/16/24 01/16/24 09:08 09:22 09:41 Temperature 36.3 C L Heart Rate 77 72 67 Respiratory 12 15 12 Rate Blood Pressure 141/86 H 141/86 H 113/71 O2 Saturation 90 L 95 94 If not protocol 4 : Oxygen Flow, liters/minute 01/16/24 01/16/24 01/16/24 10:11 11:58 12:00 Temperature Heart Rate 64 72 89 Respiratory 14 17 24 Rate Blood Pressure 110/73 107/71 118/83 H O2 Saturation 95 96 94 If not protocol : Oxygen Flow, liters/minute 01/16/24 01/16/24 01/16/24 13:00 14:00 15:00 Temperature 36.8 C Heart Rate 78 62 62 Respiratory 18 13 12 Rate Blood Pressure 159/93 H 142/85 H 115/72 O2 Saturation 99 95 96 If not protocol 4 4 4 : Oxygen Flow, liters/minute 01/16/24 01/16/24 01/16/24 16:00 17:00 18:00 Temperature 36.8 C 36.8 C Heart Rate 65 64 65 Respiratory 14 12 13 Rate Blood Pressure 125/79 149/77 H 122/78 O2 Saturation 94 92 96 If not protocol 4 4 4 : Oxygen Flow, liters/minute 01/16/24 01/16/24 19:00 20:00 Temperature Heart Rate 60 63 Respiratory 12 14 Rate Blood Pressure 120/74 114/76 O2 Saturation 97 100 If not protocol 4 4 : Oxygen Flow, liters/minute Oxygen O2 Source Nasal cannula Oxygen Flow Rate 4 - Labs Labs: Laboratory Tests 01/16/24 01/16/24 01/16/24 09:21 09:21 10:04 WBC 6.9 RBC 4.28 L Hgb 13.4 L Hct 40.3 L MCV 94.2 H MCH 31.3 H MCHC 33.3 RDW 13.2 Plt Count 191 MPV 9.8 Neut # (Auto) 4.0 Lymph # (Auto) 2.1 Gosper # (Auto) 0.4 Eos # (Auto) 0.3 Baso # (Auto) 0.1 Absolute Nucleated RBC 0.00 Nucleated RBC % 0.0 Sodium 139 Potassium 3.6 Chloride 105 Carbon Dioxide 28 Anion Gap 6.0 BUN 11 Creatinine 0.9 Estimated GFR (MDRD) 85 L Glucose 110 H POC Whole Bld Glucose 99 Calcium 9.9 Phosphorus 3.8 Magnesium 1.4 L Total Bilirubin 0.2 AST 13 ALT 21 Alkaline Phosphatase 102 Total Protein 6.7 Albumin 4.0 Globulin 2.7 Albumin/Globulin Ratio 1.5 Lipase 45 TSH 2.45 Urine Color Urine Clarity Urine pH Ur Specific Schriever Urine Protein Urine Glucose (UA) Urine Ketones Urine Occult Blood Urine Nitrite Urine Bilirubin Urine Urobilinogen Ur Leukocyte Esterase Urine RBC Urine WBC Ur Squamous Epith Cells Urine Bacteria Ur Microscopic Review Urine Culture Comments Nasal Adenovirus (PCR) Nasal B. parapertussis DNA (PCR) Nasal Coronavir 229E PCR Nasal Coronavir HKU1 PCR Nasal Coronavir NL63 PCR Nasal Coronavir OC43 PCR Nasal Enterovir/Rhinovir PCR Nasal Influenza B PCR Nasal Influenza A PCR Nasal Parainfluen 1 PCR Nasal Parainfluen 2 PCR Nasal Parainfluen 3 PCR Nasal Parainfluen 4 PCR Nasal RSV (PCR) Nasal B.pertussis DNA PCR Nasal C.pneumoniae (PCR) Duglas Human Metapneumo PCR Nasal M.pneumoniae (PCR) Nasal SARS-CoV-2 (PCR) Salicylates 7.5 Urine Opiates Screen Ur Buprenorphine Scrn Ur Oxycodone Screen Urine Methadone Screen Acetaminophen 10.1 Ur Barbiturates Screen Ur Tricyclics Screen Ur Phencyclidine Scrn Ur Amphetamine Screen U Methamphetamines Scrn U Benzodiazepines Scrn Urine Cocaine Screen U Cannabinoids Screen Ur Drug Screen Comment Ethyl Alcohol < 10.0 01/16/24 01/16/24 10:05 17:20 WBC RBC Hgb Hct MCV MCH MCHC RDW Plt Count MPV Neut # (Auto) Lymph # (Auto) Gosper # (Auto) Eos # (Auto) Baso # (Auto) Absolute Nucleated RBC Nucleated RBC % Sodium Potassium Chloride Carbon Dioxide Anion Gap BUN Creatinine Estimated GFR (MDRD) Glucose POC Whole Bld Glucose Calcium Phosphorus Magnesium Total Bilirubin AST ALT Alkaline Phosphatase Total Protein Albumin Globulin Albumin/Globulin Ratio Lipase TSH Urine Color YELLOW Urine Clarity CLEAR Urine pH 6.0 Ur Specific Schriever 1.020 Urine Protein NEGATIVE Urine Glucose (UA) NEGATIVE Urine Ketones NEGATIVE Urine Occult Blood MODERATE H Urine Nitrite NEGATIVE Urine Bilirubin NEGATIVE Urine Urobilinogen 0.2 (NORMAL) Ur Leukocyte Esterase NEGATIVE Urine RBC TNTC H Urine WBC 0-3 Ur Squamous Epith Cells RARE Squamous Urine Bacteria None Seen Ur Microscopic Review INDICATED Urine Culture Comments NOT INDICATED Nasal Adenovirus (PCR) NOT DETECTED Nasal B. parapertussis DNA (PCR) NOT DETECTED Nasal Coronavir 229E PCR NOT DETECTED Nasal Coronavir HKU1 PCR NOT DETECTED Nasal Coronavir NL63 PCR NOT DETECTED Nasal Coronavir OC43 PCR NOT DETECTED Nasal Enterovir/Rhinovir PCR NOT DETECTED Nasal Influenza B PCR NOT DETECTED Nasal Influenza A PCR NOT DETECTED Nasal Parainfluen 1 PCR NOT DETECTED Nasal Parainfluen 2 PCR NOT DETECTED Nasal Parainfluen 3 PCR NOT DETECTED Nasal Parainfluen 4 PCR NOT DETECTED Nasal RSV (PCR) NOT DETECTED Nasal B.pertussis DNA PCR NOT DETECTED Nasal C.pneumoniae (PCR) NOT DETECTED Duglas Human Metapneumo PCR NOT DETECTED Nasal M.pneumoniae (PCR) NOT DETECTED Nasal SARS-CoV-2 (PCR) NOT DETECTED Salicylates Urine Opiates Screen NEGATIVE Ur Buprenorphine Scrn NEGATIVE Ur Oxycodone Screen NEGATIVE Urine Methadone Screen NEGATIVE Acetaminophen Ur Barbiturates Screen NEGATIVE Ur Tricyclics Screen NEGATIVE Ur Phencyclidine Scrn NEGATIVE Ur Amphetamine Screen NEGATIVE U Methamphetamines Scrn NEGATIVE U Benzodiazepines Scrn NEGATIVE Urine Cocaine Screen NEGATIVE U Cannabinoids Screen NEGATIVE Ur Drug Screen Comment CUTOFF CONC BELOW: Ethyl Alcohol PD Medical Decision Making - ED course Complexity details: considered differential (Prolonged seizure this morning with poor recovery from that with apparent prolonged postictal state. Repeated seizures x 2 here in the ER again without return to baseline. Given doses of Ativan for the seizures when they occurred as did not stop on their own after 1 to 2 minutes.), d/w patient (not info directly from patient due to AMS. ), d/w family (spouse), d/w rehab consultant (I talked with neurology at [facility] who advised trying [facility] as their facility ([facility]) is not able to do video EEGs as would be required to evaluate for status. Talked with neurology at [facility] who agrees on transfer.) ED course: The patient's states he has not had a seizure for 2 to 3 years. He has been maintained on his current antiepileptic medicines. She believes he has been taking them regularly. No recent illness or injury. Today had a prolonged seizure at least 10 minutes when the called EMS. She has been familiar with him having self-limited seizures so did not immediately call for help. After 10 minutes she did call and on EMS arrival the patient was still having seizure and it was stopped with midazolam. The patient was obtunded en route but adequate oxygenation and respiratory status. On arrival here still obtunded with eye-opening to stimulus and bilateral hand squeezing to command. However did not interact well and was not having any verbal activity. Assuming a prolonged postictal state and effect of medication, I just watch the patient for a couple of hours. However he still was not improving and alertness. During that time we did do basic labs which did not show any acute abnormalities. CT of the head was then done given the prolonged altered state. No acute abnormalities. After about 3 to 4 hours here the patient did have another seizure and was given Ativan for it after it was not resolving after about 2 minutes or so. The seizure then stopped. Again he had a confusion and minimal interaction. That did not improve. Third seizure that occurred about an hour and a half later. I had given the patient 1 g of Keppra after the second seizure. I talked with neurology in [facility] and they advised another 2 gram. We will be transferring the patient to [facility]. There arranging bed space currently and will call us back with confirmation of bed and confirmation for transfer. The seizures that occurred in the ER were whole body tensing with tremoring to tonic-clonic movements. He maintain collar and saturations of the breathing was irregular. Tenseness of the jaw but no tongue injury. He was maintained on his side to reduce aspiration. No obvious injuries. - Critical Care Time(min): 50 Comments: recurrent seizures in ED with meds and IV orders/assessments. Time Includes: Direct patient care, Reassess patient, Coordinate care, Medical consult Data interpretation: Labs Departure - Departure Disposition: 02 Transfer Acute Care Hosp Clinical Impression: Seizure disorder, status epilepticus, convulsive AMS (altered mental status) Qualifiers: Altered mental status type: unspecified Qualified Code(s): R41.82 - Altered mental status, unspecified Forms: PCP List
[2024-01-16] MEDS: SODIUM CHLORIDE 0.9% 1,000 ML IV STA (09:14)
[2024-01-16 09:26] LABS: BASOPHILS # (AUTO) 0.1 10^3/uL (0.0-0.1); BASOPHILS % (AUTO) 0.7 %; EOSINOPHILS # (AUTO) 0.3 10^3/uL (0.0-0.7); EOSINOPHILS % (AUTO) 4.9 %; HCT - HEMATOCRIT 40.3 % (42.0-52.0); HGB - HEMOGLOBIN 13.4 g/dL (14.0-18.0); LYMPHOCYTES # (AUTO) 2.1 10^3/uL (1.5-3.5); LYMPHOCYTES % (AUTO) 30.3 %; MEAN CORPUSCULAR HEMOGLOBIN 31.3 pg (27.0-31.0); MEAN CORPUSCULAR HGB CONC 33.3 g/dL (32.0-36.0); MEAN CORPUSCULAR VOLUME 94.2 fL (80.0-94.0); MEAN PLATELET VOLUME 9.8 fL (7.4-11.4); MONOCYTES # (AUTO) 0.4 10^3/uL (0.0-1.0); MONOCYTES % (AUTO) 6.4 %; NEUTROPHILS % (AUTO) 57.6 %; PLT - PLATELET COUNT 191 10^3/uL (130-450); RED BLOOD COUNT 4.28 10^6/uL (4.70-6.10); RED CELL DISTRIBUTION WIDTH 13.2 % (12.0-15.0); WHITE BLOOD COUNT 6.9 x10^3/uL (4.8-10.8)
[2024-01-16 09:47] LABS: ACETAMINOPHEN 10.1 ug/mL; ALBUMIN/GLOBULIN RATIO 1.5 (1.0-2.2); ALKALINE PHOSPHATASE 102 IU/L (42-121); ALT ALANINE AMINOTRANSFERASE 21 IU/L (10-60); AST ASPARTATE AMINOTRANSFERASE 13 IU/L (10-42); BILIRUBIN,TOTAL 0.2 mg/dL (0.2-1.0); BUN - BLOOD UREA NITROGEN 11 mg/dL (6-20); CALCIUM 9.9 mg/dL (8.5-10.3); CARBON DIOXIDE - CO2 28 mmol/L (21-32); CHLORIDE 105 mmol/L (101-111); CREATININE 0.9 mg/dL (0.6-1.3); ETOH - ETHANOL < 10.0 mg/dL; GFR - MDRD 85 (>89); GLUCOSE 110 mg/dL (74-104); LIPASE 45 U/L (11-82); MAGNESIUM 1.4 mg/dL (1.7-2.3); PHOSPHORUS 3.8 mg/dL (2.5-5.0); POTASSIUM 3.6 mmol/L (3.5-4.5); SALICYLATE 7.5 mg/dL; SODIUM 139 mmol/L (135-145); TOTAL PROTEIN 6.7 g/dL (6.4-8.9)
[2024-01-16 10:03] LABS: THYROID STIMULATING HORMONE 2.45 uIU/mL (0.34-5.60)
[2024-01-16] MEDS: MAGNESIUM SULFATE 2 GRAM 2 GM/50 ML BAG IV ONE (11:04)
[2024-01-16 11:12] LABS: B. PARAPERTUSSIS- RESP PCR PAN NOT DETECTED; B. PERTUSSIS- RESP PCR PANEL NOT DETECTED; C. PNEUMONIAE- RESP PCR PANEL NOT DETECTED; CORONAVIRUS 229E-RESP PCR NOT DETECTED; CORONAVIRUS HKU1-RESP PCR NOT DETECTED; CORONAVIRUS NL63-RESP PCR NOT DETECTED; CORONAVIRUS OC43-RESP PCR NOT DETECTED; HUMAN METAPNEUMOVIRUS NOT DETECTED; INFLUENZA A- RESP PCR PANEL NOT DETECTED; INFLUENZA B - RESP PCR PANEL NOT DETECTED; M. PNEUMONIAE- RESP PCR PANEL NOT DETECTED; PARAINFLUENZA VIRUS 1 NOT DETECTED; PARAINFLUENZA VIRUS 2 NOT DETECTED; PARAINFLUENZA VIRUS 3 NOT DETECTED; PARAINFLUENZA VIRUS 4 NOT DETECTED; RHINOVIRUS/ENTEROVIRUS NOT DETECTED; RSV- RESP PCR PANEL NOT DETECTED; SARS-CoV-2 -RESP PCR PANEL NOT DETECTED
--- NOTE | 2024-01-16 13:22 | CT Report ---
PROCEDURE: Head WO INDICATIONS: post seizure, prolonged AMS TECHNIQUE: Noncontrast 4.5 mm thick angled axial sections acquired from the foramen magnum to the vertex. For r adiation dose reduction, the following was used: automated exposure control, adjustment of mA and/or kV according to patient size. COMPARISON: 06/19/2016. FINDINGS: Image quality: Excellent. CSF spaces: Basal cisterns are patent. No extra-axial fluid collections. Ventricles are normal in size and shape. Brain: No midline shift. No intracranial masses or hemorrhage. Marques-white matter interface is norm al. Skull and face: Calvarium and visualized facial bones are intact, without suspicious lesions. Sinuses: Visualized sinuses and mastoids are clear. IMPRESSION: No acute intracranial pathology. Reviewed by: Sushil Larsen MD on 01/16/2024 1:21 PM PDT Approved by: Sushil Larsen MD on 01/16/2024 1:21 PM PDT Station ID: [id number]
[2024-01-16] MEDS ORDERED: LORazepam 2 MG/ML VIAL ONE ×2 (13:43→17:40)
[2024-01-16] MEDS: LORazepam 2 MG/ML VIAL IVP STA ×2 (13:51→17:56)
[2024-01-16] MEDS: levETIRAcetam INJ 1,000 MG in SODIUM CHLORIDE 0.9% 100ML 100 ML IV STA (14:10)
[2024-01-16] MEDS: levETIRAcetam INJ 2,000 MG in SODIUM CHLORIDE 0.9% 100ML 100 ML IV STA (16:46)
[2024-01-16 17:37] LABS: BILIRUBIN,URINE NEGATIVE (NEGATIVE); GLUCOSE, URINE (UA) NEGATIVE (NEGATIVE); KETONES,URINE (UA) NEGATIVE (NEGATIVE); LEUKOCYTE ESTERASE, URINE NEGATIVE (NEGATIVE); NITRITE,URINE NEGATIVE (NEGATIVE); OCCULT BLOOD,URINE MODERATE (NEGATIVE); PROTEIN,URINE NEGATIVE (NEGATIVE); UROBILINOGEN,URINE 0.2 (NORMAL) E.U./dL (NORMAL)
[2024-01-16 17:39] LABS: CLARITY,URINE CLEAR (CLEAR)
[2024-01-16 17:47] LABS: BACTERIA,URINE None Seen /HPF (None Seen); COCAINE SCREEN URINE NEGATIVE (NEGATIVE); METHAMPHETAMINES SCREEN, URINE NEGATIVE (NEGATIVE); RBC,URINE TNTC /HPF (0-5); SQUAMOUS EPITHELIAL CELL,UR RARE Squamous (<= Few); THC CANNABINOID SCREEN, URINE NEGATIVE (NEGATIVE); WBC,URINE 0-3 /HPF (0-3)
[2024-01-16 17:48] LABS: AMPHETAMINE SCREEN,URINE NEGATIVE (NEGATIVE); BARBITURATE SCREEN,UR NEGATIVE (NEGATIVE); BENZODIAZEPINES SCREEN, URINE NEGATIVE (NEGATIVE); BUPRENORPHINE SCREEN, URINE NEGATIVE (NEGATIVE); METHADONE SCREEN, URINE NEGATIVE (NEGATIVE); OPIATE SCREEN, URINE NEGATIVE (NEGATIVE); OXYCODONE SCREEN, URINE NEGATIVE (NEGATIVE); TRICYCLIC ANTIDEPRESSANT,URINE NEGATIVE (NEGATIVE)
[2024-01-17] MEDS ORDERED: LORazepam 2 MG/ML VIAL ONE (01:29)
[2024-01-17] MEDS ORDERED: levETIRAcetam 500 MG/5 ML VIAL IVP STA (01:34)
[2024-01-17] MEDS: LORazepam 2 MG/ML VIAL IVP STA (01:39)
[2024-01-17] MEDS: levETIRAcetam INJ 1,500 MG in SODIUM CHLORIDE 0.9% 100ML 100 ML IV ONE (02:12)
--- NOTE | 2024-01-17 02:41 | ED Physician Documentation ---
ED Addendum - Addendum Addendum: 01/17/24 07:29 I received signout/turnover of care on this patient from Dr. Poe; please see his note for complete H&P. In brief, this patient's past medical history includes seizures and he presented to the emergency department earlier tonight due to seizure. At the time of signout/turnover of care, the patient had 2 more seizures in the ER (in addition to the seizure at home prompting to call 911). He had received total of 3 mg IV lorazepam and [address] Poe had spoken with neurologist and a hospitalist at [facility] and the patient was accepted for transfer to [facility], awaiting bed availability. A few hours into my shift, the transfer center coordinator for [facility] contacted my SCHOOL TRANSPORTATION SUPERVISOR and informed her that they would keep this patient on the wait list but recommended trying to find other hospitals with bed availability, as they anticipate there will be significant delay until bed becomes available at [facility]. I was subsequently put in touch with the on-call neurologist for [facility] (Dr. Alvarez). As I was discussing this case with Dr. Alvarez, the ED RN informing that the patient was having another generalized tonic-clonic seizure. I thus ordered [address] Alvarez recommended that I also order 1500 mg Keppra to reach a total of 4.5 g of Keppra to be given over the course of his ED stay thus far, and I thus put in order for 1500 mg Keppra IV. Given these medications, the patient's seizure only lasted approximately 2 to [address] Alvarez was agreeing patient be appropriate for transfer to [facility], I was then informed by the [facility] senior marketing coordinator that they do not have any beds; they stated they will put him on a wait list but highly encouraged contacting other facilities as they also are anticipating a long wait for bed [place] [facility] [place] [facility] was then consulted. I was subsequently put in touch with the neurologist on-call at [facility] who agrees patient is appropriate for transfer to [facility] and transfer center says a bed should be available within an hour. I was then put in touch with the hospitalist at [facility] (Dr. Delmis Quinonez) who accepts transfer to [facility]. Note that just prior to leaving the ED to be transferred by air to [facility], the patient was finally awake, alert, conversant although slightly confused. He is following all commands quickly and appropriately.
[2024-01-17 06:00] VITALS: BP 139/104; O2SAT 97
== END 2024-01-17 05:56 | disposition short-term general hospital (02) ==
LOC: EDUNIT# → ED 09:02
DX: G40.801 Other epilepsy, not intractable, with status epilepticus (principal); I10 Essential (primary) hypertension; I73.9 Peripheral vascular disease, unspecified; G47.30 Sleep apnea, unspecified; Z79.899 Other long term (current) drug therapy; R41.82 Altered mental status, unspecified
CPT/HCPCS: 36415; 70450; 80053; 80143; 80179; 80306; 81001; 82077; 83690; 83735; 84100; 84443; 85025; 87633; 93005; 96361; 96365; 96366; 96367; 96375; 96376; 99291; J2060; 81003; 87086

== ENCOUNTER 2024-01-16 09:39 | Outpatient (CLI) | payer OTHER | END 2024-01-16 23:59 | disposition critical access hospital (66) | LOC: EMS 09:39 | DX: R56.9 Unspecified convulsions (principal) | CPT/HCPCS: A0425; A0427 ==